=== PATIENT | female | born 1950 | race Caucasian/White ===

== ENCOUNTER → 2016-10-07 | Outpatient (CLI) | payer MEDICARE ==
[~2016-10-07] MED LIST: /ADVA50050; /IPRA3SP; /MOXI40TA; ACETGRA; ADV250INH INH; ALBU0.084 INH; ALBU83IN; ALBU83IN INH; ATEN25TA; ATEN25TA PO; ATIV0.5T OR; ATIV1TAB2; ATROVENT; ATROVENT0.02%; CALTTAB2 PO; CEFD1CAP8; CEFT500T3 PO; CELE40TA; CELE40TA PO; CITA40TA4 PO; CLON0.5T PO; COMBAER6 INH; COMBVENT; DIPH50CA PO; FLUT1SPR2; IPRASOL4 IN; KLON2TAB OR; KLON2TAB PO; LEVO500T32; LORA2TAB; MUCI600T34 PO; NICO7DIS4 TD; OMEP40CA2 PO; PRED10TA2; PRED20TA; PRED20TA PO; PRIL40CA; PRIL40CA PO; PROL60SO SC; SIMV10TA2; SIMV20TA2 PO; SIMV40TA2 PO; VIBR100C PO; VITA50003 PO; VITA500047 PO; ZITH250T; ZOCO10TA PO; [UNRECOGNIZED DRUG - CODE] PO; robitussin
--- NOTE | 2016-10-07 13:15 | REP ---
Clinical: Chronic obstructive pulmonary disease with acute weeks aspiration. Comparison: 05/30/2016. Technique: PA and lateral. Five views: Mediastinum and cardiac silhouette are stable again demonstrating scoliosis and postsurgical changes. The lung yanez demonstrate chronic changes without acute consolidation, effusion, or pneumothorax. Impression: Chronic stable changes. No acute cardiopulmonary process appreciated. Signed by Gaston Kapadia MD 10/07/2016 01:07 P
== END ==
LOC: M RAD 12:57
PROVIDERS: ATTEND Family Medicine
DX: J44.1 Chronic obstructive pulmonary disease with (acute) exacerbation (principal); R05 Cough
CPT/HCPCS: 36415; 71020; 85025; 96372; G0463; J1040

== ENCOUNTER → 2016-10-07 | Outpatient (REF) | payer MEDICARE ==
[~2016-10-07] MED LIST changes: -CEFD1CAP8; -LEVO500T32
[2016-10-07 16:50] LABS: BASO % 0.2 % (0.0-1.0); EOS % 0.2 % (0.0-3.0); LARGE UNSTAINED CELL # 0.1 K/mm3 (0.0-0.4); LARGE UNSTAINED CELL % 0.6 % (0.0-4.0); LYMPH # 0.7 K/mm3 (1.5-4.5); LYMPH % 5.8 % (24.0-44.0); MEAN CORPUSCULAR HEMOGLOBIN 28.5 pg (27.0-33.0); MEAN CORPUSCULAR HGB CONC 32.2 g/dl (32.0-36.5); MEAN CORPUSCULAR VOLUME 88.5 fl (80.0-96.0); MONO # 0.3 K/mm3 (0.0-0.8); MONO % 2.4 % (0.0-5.0); NEUTROPHILS # 10.9 K/mm3 (1.8-7.7); NEUTROPHILS % 90.7 % (36.0-66.0); PLATELET COUNT, AUTOMATED 246 k/mm3 (150-450); RED CELL DISTRIBUTION WIDTH 14.2 % (11.5-14.5)
== END ==
LOC: M SFHCPLAZ 16:02
PROVIDERS: ATTEND Nurse Practitioner Family
DX: J44.1 Chronic obstructive pulmonary disease with (acute) exacerbation (principal); R05 Cough

== ENCOUNTER → 2016-10-09 | Outpatient (CLI) | payer MEDICARE ==
--- NOTE | 2016-10-09 10:16 | REP ---
Clinical: Pain. Comparison: 05/06/2016. Technique: AP, lateral views of the right knee. Findings: The osseous structures and joint spaces are intact and normal. There is no evidence for acute fracture or dislocation. No definite effusion. Impression: Stable age appropriate right knee radiographs. Signed by Gaston Kapadia MD 10/09/2016 10:07 A
--- NOTE | 2016-10-11 07:43 | REP ---
Clinical: Acute pain . Technique: Hoffman scale and color Doppler evaluation using linear high frequency transducer. Findings: Ultrasound examination of the right lower extremity deep venous structures from the common femoral vein to the popliteal vein demonstrates normal compressibility flow and wave patterns in response to respiration and augmentation. There is no evidence for deep venous thrombosis. Mckenzie's cyst in the popliteal fossa measures 2.4 x 1.7 x 1.3 cm. Impression: No evidence for deep venous thrombosis. 2.4 cm Mckenzie's cyst in the popliteal fossa. Signed by Gaston Kapadia MD 10/09/2016 10:20 A
== END ==
LOC: M RAD 09:37
PROVIDERS: ATTEND Family Medicine
DX: M25.561 Pain in right knee (principal)

== ENCOUNTER → 2016-10-18 | Outpatient (REF) | payer MEDICARE ==
[~2016-10-18] MED LIST changes: +CEFD1CAP8; +LEVO500T32
[2016-10-18 17:36] LABS: BASO % 0.2 % (0.0-1.0); EOS # 0.3 K/mm3 (0.0-0.50); EOS % 1.8 % (0.0-3.0); LARGE UNSTAINED CELL # 0.2 K/mm3 (0.0-0.4); LARGE UNSTAINED CELL % 1.4 % (0.0-4.0); LYMPH # 2.9 K/mm3 (1.5-4.5); LYMPH % 19.4 % (24.0-44.0); MEAN CORPUSCULAR HEMOGLOBIN 28.2 pg (27.0-33.0); MEAN CORPUSCULAR HGB CONC 32.2 g/dl (32.0-36.5); MEAN CORPUSCULAR VOLUME 87.6 fl (80.0-96.0); MONO % 6.5 % (0.0-5.0); NEUTROPHILS # 10.7 K/mm3 (1.8-7.7); NEUTROPHILS % 70.7 % (36.0-66.0); PLATELET COUNT, AUTOMATED 239 k/mm3 (150-450); RED CELL DISTRIBUTION WIDTH 13.9 % (11.5-14.5); WHITE BLOOD COUNT 15.1 K/mm3 (4.0-10.0)
== END ==
LOC: M SFHCPLAZ 15:57
PROVIDERS: ATTEND Physician Assistant Medical
DX: J32.9 Chronic sinusitis, unspecified (principal)
CPT/HCPCS: 36415; 85025; G0463

== ENCOUNTER 2016-10-19 12:27 | Emergency (ER) | payer MEDICARE ==
[~2016-10-19] VITALS: Ht 152.4 cm; Wt 64.4 kg
[~2016-10-19 12:27] MED LIST changes: -CEFD1CAP8; -LEVO500T32
[2016-10-19] MEDS ORDERED: CEFD1CAP8 (13:04)
[2016-10-19] MEDS ORDERED: LEVO500T32 (13:04)
--- NOTE | 2016-10-19 15:33 | REP ---
CT study of the chest without contrast: History: Cough and chest pain. Comparison chest x-ray is from October 07, 2015. Comparison chest CT study is from June 09, 2016. CT findings: There is a moderate dextroconvex upper thoracic scoliotic curve again seen. There are emphysematous changes in the right upper lobe. The patient is status post left upper lobe resection. There are surgical clips in the left hilar region. Postsurgical changes are seen in the left lower lateral rib cage and there is subpleural and parenchymal linear fibrosis at the left base. There is no evidence of pulmonary mass lesion or infiltrate. No pleural effusion is seen. There is a stable intermediate density nodule in the left adrenal gland, unchanged from May 30 2016. This measures 1.9 cm. The visualized upper abdominal structures are otherwise unremarkable. No hilar or mediastinal adenopathy or mass lesion is observed. Impression: Status post left upper lobectomy. Scoliosis, right upper lobe emphysematous changes. No acute abnormality seen. Signed by Mario Moscoso MD 10/19/2016 04:45 P
[2016-10-19 15:52] VITALS: BP 116/61
== END 2016-10-19 15:54 | disposition home or self-care (01) ==
LOC: M ED 12:27
DX: J44.1 Chronic obstructive pulmonary disease with (acute) exacerbation (principal); K21.9 Gastro-esophageal reflux disease without esophagitis; Z85.118 Personal history of other malignant neoplasm of bronchus and lung; K44.9 Diaphragmatic hernia without obstruction or gangrene; Z88.1 Allergy status to other antibiotic agents; Z88.0 Allergy status to penicillin; Z88.2 Allergy status to sulfonamides; Z88.8 Allergy status to other drugs, medicaments and biological substances; Z79.899 Other long term (current) drug therapy

== ENCOUNTER → 2016-10-27 | Outpatient (CLI) | payer MEDICARE ==
[~2016-10-27] MED LIST changes: +CEFD1CAP8; +LEVO500T32
[2016-10-27 13:31] LABS: BASO % 0.4 % (0.0-1.0); EOS # 0.4 K/mm3 (0.0-0.50); EOS % 4.2 % (0.0-3.0); LARGE UNSTAINED CELL # 0.2 K/mm3 (0.0-0.4); LARGE UNSTAINED CELL % 1.7 % (0.0-4.0); LYMPH # 2.1 K/mm3 (1.5-4.5); LYMPH % 19.2 % (24.0-44.0); MEAN CORPUSCULAR HEMOGLOBIN 28.7 pg (27.0-33.0); MEAN CORPUSCULAR HGB CONC 32.1 g/dl (32.0-36.5); MEAN CORPUSCULAR VOLUME 89.5 fl (80.0-96.0); MONO # 0.5 K/mm3 (0.0-0.8); MONO % 5.5 % (0.0-5.0); NEUTROPHILS # 6.8 K/mm3 (1.8-7.7); NEUTROPHILS % 69.1 % (36.0-66.0); PLATELET COUNT, AUTOMATED 240 k/mm3 (150-450); RED CELL DISTRIBUTION WIDTH 13.6 % (11.5-14.5); WHITE BLOOD COUNT 9.9 K/mm3 (4.0-10.0)
[2016-10-27 14:02] LABS: ALBUMIN 3.3 GM/DL (3.2-5.2); ALKALINE PHOSPHATASE 59 U/L (45-117); ALT/SGPT 10 U/L (12-78); ANION GAP 8 MEQ/L (8-16); AST/SGOT 10 U/L (15-37); BILIRUBIN,TOTAL 0.3 MG/DL (0.2-1.0); BLOOD UREA NITROGEN 11 MG/DL (7-18); CALCIUM LEVEL 8.1 MG/DL (8.8-10.2); CARBON DIOXIDE LEVEL 28 MEQ/L (21-32); CHLORIDE LEVEL 107 MEQ/L (98-107); CREATININE FOR GFR 0.72 MG/DL (0.55-1.02); GLOMERULAR FILTRATION RATE > 60.0 (>45); GLUCOSE, FASTING 92 MG/DL (80-110); POTASSIUM SERUM 3.6 MEQ/L (3.5-5.1); SODIUM LEVEL 143 MEQ/L (136-145); TOTAL PROTEIN 6.3 GM/DL (6.4-8.2)
[2016-10-27 14:22] LABS: ERYTHROCYTE SEDIMENTATION RATE 57 mm/hr (0-30)
--- NOTE | 2016-10-27 15:42 | REP ---
MRI RIGHT KNEE: TECHNIQUE: Axial proton density fat saturation, sagittal proton density T2 STIR, water excitation, coronal proton density, proton density fat saturation. There is an extensive complex tear of the posterior horn of the medial meniscus. The lateral meniscus appears intact. The cruciate and collateral ligaments are intact. The extensor mechanism is intact. There is mild chondromalacia patella. There is moderate diffuse chondromalacia in the medial joint compartment with subchondral marrow edema in the medial femoral condyle and tibial plateau. There is a fairly large joint effusion. Popliteal cyst is seen superomedially in the popliteal fossa measuring about 3 cm in cranial caudal dimension and about 1.5 cm in thickness. IMPRESSION: Extensive complex tear posterior horn medial meniscus. Cruciate and collateral ligaments intact. Moderate chondromalacia in the medial joint compartment with subchondral marrow edema. Large joint effusion. Popliteal cyst. Signed by Yannick Hoffman MD 10/28/2016 04:38 P
== END ==
LOC: M RAD 13:00
PROVIDERS: ATTEND Family Medicine
DX: M25.561 Pain in right knee (principal); E78.2 Mixed hyperlipidemia

== ENCOUNTER 2016-12-17 08:47 | Outpatient (RCR) | payer MEDICARE | END 2016-12-19 | disposition home or self-care (01) | LOC: M PT 08:47 | PROVIDERS: ATTEND Family Medicine | DX: Z51.89 Encounter for other specified aftercare (principal); M25.641 Stiffness of right hand, not elsewhere classified; M25.561 Pain in right knee; M17.0 Bilateral primary osteoarthritis of knee | CPT/HCPCS: 97110; 97116; 97161; G8978; G8979 ==

== ENCOUNTER → 2016-12-31 | Outpatient (CLI) | payer MEDICARE ==
[~2016-12-31] MED LIST changes: +INCR1INH INH; +TRAZ50TA4 PO
--- NOTE | 2017-01-01 17:20 | ECGEPIP ---
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 Poor R-wave progression V1-V3, possible old anteroseptal myocardial infarct. MINIMAL ST DEPRESSION No significant change compared with 05/31/2016. Electronically Signed On 01-01-2017 17:19:53 EDT by Zafar Prescott
== END ==
LOC: M EKG 15:21
PROVIDERS: ATTEND Anesthesiology
DX: Z01.818 Encounter for other preprocedural examination (principal); R94.31 Abnormal electrocardiogram [ECG] [EKG]; J44.9 Chronic obstructive pulmonary disease, unspecified

== ENCOUNTER → 2017-01-03 | Day surgery (SDC) | payer MEDICARE ==
[~2017-01-03] VITALS: Ht 154.9 cm; Wt 59.9 kg
[~2017-01-03] MED LIST changes: +BUPIVACAINE HCL 0.5% 30 ML VIAL As Ordered ONE; +LIDOCAINE 2% INJ 100 MG/5 ML SDV (FOR ANES.) As Ordered ONE; +LR 1,000 ML IV ONE; +LR 1,000 ML IV SCH; +MIDAZOLAM INJ 2 MG/2 ML VIAL (J2250) As Ordered ONE; +NORCO, ANEXSIA 5/325MG TABLET (HYDROcodone/ACETAMINOPHEN) PO PRN; +PHENYLephrine HCL 500 MCG/5 ML (100MCG/ML) SYRINGE (J2370) As Ordered ONE; +PROPOFOL 200 MG/20 ML VIAL As Ordered ONE; +ROPIvacaine 0.5% 30 ML INJECTION (J2795) As Ordered ONE; +VANCOMYCIN HCL 1,000 MG, VIAL MATE ADAPTER 1 EACH in D5W 250 ML IV ONE; +fentaNYL 100 MCG/2 ML INJECTION (J3010) As Ordered ONE
--- NOTE | 2017-01-03 08:38 | RO ---
DATE OF PROCEDURE: 01/03/2017 PREOPERATIVE DIAGNOSIS: Right knee medial meniscus tear and arthritis. POSTOPERATIVE DIAGNOSIS: Right knee medial meniscus tear and arthritis. PROCEDURE: Right knee operative arthroscopy, partial medial meniscectomy and joint debridement. SURGEON: Javier Bower MD SENIOR FIREWALL ENGINEER: DEDRICK Schmidt ANESTHESIA: Spinal ESTIMATED BLOOD LOSS: Minimal. COMPLICATIONS: None. INDICATIONS: This is a 66-year-old woman who has had some persistent medial sided knee pain. MRI scan was consistent with meniscus pathology. She was having significant pain and failed conservative management and wished to ahead with surgical treatment. She understood the nature of the procedure, the risks of bleeding, infection, damage to nerves, vessels, persistent pain, blood clots, medical problems, among others. DESCRIPTION OF PROCEDURE: The patient was taken to the operating room and placed in a supine position after spinal anesthesia was induced. The right lower extremity was prepped and draped in usual sterile fashion. Time-out was performed. Tourniquet was inflated. I then created inferomedial, inferolateral portals per routine. I identified the patellofemoral joint, which was relatively unremarkable. Some grade 1 changes. There was a little bit of the thickened plica that was debrided. I could see down both gutters and identified the medial compartment. There was a large complex medial meniscus tear and it had a fairly peripheral component to it as well, but a big flap that was folded underneath, which was resected and I resected this back to a stable rim. It did involve a significant portion of the meniscus. The anterior horn was largely intact. There was a small portion of the posterior horn near the attachments still intact. I then reprobed the meniscus and made sure it was stable. Identified the anterior cruciate ligament (ACL), which was unremarkable. The lateral compartment demonstrated a small loose body that was scarred down at the anterior horn of the lateral meniscus. This was debrided out. The lateral meniscus otherwise intact with only mild arthritis on the lateral side. The medial side did have an area on the medial femoral condyle that was near full thickness defect, relatively small. I then proceeded back to the patellofemoral joint and reexamined the entire joint, removed the instrumentation, closed the portals using #4-0 nylon suture. Injected 30 mL of Naropin. A sterile dressing was applied. Tourniquet was deflated. She was taken to recovery room in stable condition. There were no known complications. Plan will be routine postoperative.
[2017-01-03 11:29] VITALS: BP 127/62
== END | disposition home or self-care (01) ==
LOC: M SDC 05:44
PROVIDERS: ATTEND Orthopaedic Surgery
DX: M23.221 Derangement of posterior horn of medial meniscus due to old tear or injury, right knee (principal); M17.11 Unilateral primary osteoarthritis, right knee; F41.9 Anxiety disorder, unspecified; F32.9 Major depressive disorder, single episode, unspecified; M54.9 Dorsalgia, unspecified; K44.9 Diaphragmatic hernia without obstruction or gangrene; C34.90 Malignant neoplasm of unspecified part of unspecified bronchus or lung; E78.00 Pure hypercholesterolemia, unspecified; K21.9 Gastro-esophageal reflux disease without esophagitis; L30.9 Dermatitis, unspecified; M81.0 Age-related osteoporosis without current pathological fracture; R06.02 Shortness of breath; J32.9 Chronic sinusitis, unspecified; R32 Unspecified urinary incontinence; Z88.0 Allergy status to penicillin; Z88.1 Allergy status to other antibiotic agents; Z88.2 Allergy status to sulfonamides; Z88.5 Allergy status to narcotic agent; Z88.8 Allergy status to other drugs, medicaments and biological substances; Z79.899 Other long term (current) drug therapy; Z72.0 Tobacco use
CPT/HCPCS: 29881; 88304; J2250; J2370; J2795; J3010; J3370

== ENCOUNTER 2017-01-14 11:10 | Outpatient (RCR) | payer MEDICARE ==
[~2017-01-14 11:10] MED LIST changes: -BUPIVACAINE HCL 0.5% 30 ML VIAL As Ordered ONE; -LIDOCAINE 2% INJ 100 MG/5 ML SDV (FOR ANES.) As Ordered ONE; -LR 1,000 ML IV ONE; -LR 1,000 ML IV SCH; -MIDAZOLAM INJ 2 MG/2 ML VIAL (J2250) As Ordered ONE; -NORCO, ANEXSIA 5/325MG TABLET (HYDROcodone/ACETAMINOPHEN) PO PRN; -PHENYLephrine HCL 500 MCG/5 ML (100MCG/ML) SYRINGE (J2370) As Ordered ONE; -PROPOFOL 200 MG/20 ML VIAL As Ordered ONE; -ROPIvacaine 0.5% 30 ML INJECTION (J2795) As Ordered ONE; -VANCOMYCIN HCL 1,000 MG, VIAL MATE ADAPTER 1 EACH in D5W 250 ML IV ONE; -fentaNYL 100 MCG/2 ML INJECTION (J3010) As Ordered ONE
== END 2017-01-19 ==
LOC: M PT 11:10
PROVIDERS: ATTEND Orthopaedic Surgery
DX: Z51.89 Encounter for other specified aftercare (principal); Z47.89 Encounter for other orthopedic aftercare
CPT/HCPCS: 97110; 97161; G8978; G8979

== ENCOUNTER → 2017-01-25 | Outpatient (REF) | payer MEDICARE | LOC: M SFHCPLAZ 14:08 | PROVIDERS: ATTEND Family Medicine | DX: N30.00 Acute cystitis without hematuria (principal) | CPT/HCPCS: 87088; 87186; G0463 ==

== ENCOUNTER 2017-01-27 11:45 | Outpatient (RCR) | payer MEDICARE ==
[~2017-01-27 11:45] MED LIST changes: +LEVO500T3; -LEVO500T32; +MUCI600T37 PO; +TRAZ50TA11 PO; -TRAZ50TA4 PO; +VITA1CAP40 PO; -VITA50003 PO
== END 2017-02-18 | disposition home or self-care (01) ==
LOC: M PT 11:45
PROVIDERS: ATTEND Orthopaedic Surgery
DX: Z51.89 Encounter for other specified aftercare (principal); M25.561 Pain in right knee

== ENCOUNTER → 2017-02-04 | Outpatient (REF) | payer MEDICARE, OTHER ==
[~2017-02-04] MED LIST changes: +HYDR-3713; +TESS100C PO
== END ==
LOC: M SFHCPLAZ 17:11
PROVIDERS: ATTEND Physician Assistant Medical
DX: L08.9 Local infection of the skin and subcutaneous tissue, unspecified (principal)
CPT/HCPCS: 87070; 87205; G0463

== ENCOUNTER → 2017-02-07 | Outpatient (CLI) | payer MEDICARE ==
[~2017-02-07] MED LIST changes: -HYDR-3713; -LEVO500T3; +LEVO500T32; -MUCI600T37 PO; -TESS100C PO; -TRAZ50TA11 PO; +TRAZ50TA4 PO; -VITA1CAP40 PO; +VITA50003 PO
--- NOTE | 2017-02-07 16:46 | REP ---
HISTORY: Pain and swelling right thigh. TECHNIQUE: Multiple ultrasonographic images of the deep venous structures of the right thigh were obtained from the common femoral vein to the popliteal vein along with Doppler interrogation and color flow Doppler images. FINDINGS: There is no abnormal echogenic material seen within any of the visualized deep venous structures that would suggest acute thrombosis. Coaptation is unremarkable throughout. Doppler interrogation shows an expected response to respiratory variability and augmentation. The color flow images show what appears to be a normal vascular pattern throughout. IMPRESSION: There is no ultrasonographic evidence of deep venous thrombosis involving any of the visualized deep venous structures of the right thigh, as described above. Signed by Skip Worley DO 02/07/2017 05:04 P
== END ==
LOC: M RAD 15:27
PROVIDERS: ATTEND Physician Assistant Surgical
DX: M25.561 Pain in right knee (principal); R22.41 Localized swelling, mass and lump, right lower limb

== ENCOUNTER → 2017-02-11 | Outpatient (CLI) | payer MEDICARE ==
--- NOTE | 2017-02-11 14:54 | REP ---
MRI RIGHT KNEE: TECHNIQUE: Axial proton density fat saturation, sagittal proton density T2 STIR, water excitation, coronal proton density, proton density fat saturation. COMPARISON: 10/27/2016 Since prior study, patient has had right knee arthroscopy with partial medial meniscectomy and joint debridement. The medial meniscus is quite truncated with a small remnant of the posterior horn of the medial meniscus visualized. Lateral meniscus remains intact with no new tear. The cruciate and collateral ligaments are again intact. The extensor mechanism is intact. Very mild chondromalacia is again seen of the patella. There is moderate to moderately severe chondromalacia of the medial femoral condyle and medial tibial plateau. Moderate subchondral marrow edema is seen in the medial femoral condyle, increased since prior study. In addition, there is a tiny subchondral low signal focus in the medial femoral condyle, which is hypointense on both T1 and T2 and may represent a small focus of early osteonecrosis. Very mild subchondral marrow edema is seen in the medial tibial plateau. There is a moderate joint effusion. A small amount of fluid extends into the medial popliteal fossa. IMPRESSION: Postsurgical changes of medial meniscus with a small remnant of the posterior horn. Lateral meniscus demonstrates no new tear. Cruciate and collateral ligaments intact. Moderate to moderately severe chondromalacia medial femoral condyle and tibial plateau. Increased marrow edema in the medial femoral condyle. Possible early osteonecrosis in a subchondral location in the medial femoral condyle. Moderate joint effusion. Signed by Yannick Hoffman MD 02/11/2017 03:30 P
== END ==
LOC: M RAD 12:51
PROVIDERS: ATTEND Physician Assistant Surgical
DX: M25.561 Pain in right knee (principal)

== ENCOUNTER → 2017-03-10 | Outpatient (CLI) | payer MEDICARE ==
[~2017-03-10] MED LIST changes: +HYDR-3713; +LEVO500T3; -LEVO500T32; +MUCI600T37 PO; +TESS100C PO; +TRAZ50TA11 PO; -TRAZ50TA4 PO; +VITA1CAP40 PO; -VITA50003 PO
--- NOTE | 2017-03-10 10:17 | REPMRS ---
Patient History The patient states she has not had a clinical breast exam in over a year. Patient is postmenopausal and has history of lung cancer at age 63. Family history of breast cancer in paternal aunt and breast cancer in paternal grandmother at age 50 or over. Digital Woman Screen Mammo: March 10, 2017 - Exam #: [id number] Bilateral CC and MLO view(s) were taken. Technologist: Laurence Manning Technologist Prior study comparison: March 08, 2016, digital woman screen mammo performed at [facility]. January 21, 2015, bilateral digital mammo screening bilat, performed at [facility]. December 20, 2013, digital woman screen mammo performed at [facility]. FINDINGS: There are scattered fibroglandular densities. A cutaneous mole projects in the upper outer quadrant on the right. There has been no other change in the appearance of the mammogram from the prior studies. There is a mild amount of scattered fibroglandular density which is fairly symmetric. There is no interval development of dominant mass, architectural distortion, or clustered microcalcification suggestive of malignancy. ASSESSMENT: BI-RADS/ACR category 2 mammogram. Benign finding(s). Recommendation Routine screening mammogram in 1 year (for women over age 40). This mammogram was interpreted with the aid of an FDA-approved computer-aided dectection system. Electronically Signed By: Lalo Moscoso MD 03/10/17 [id number]
== END ==
LOC: M WHC 09:21
PROVIDERS: ATTEND Family Medicine
DX: Z12.31 Encounter for screening mammogram for malignant neoplasm of breast (principal)

== ENCOUNTER → 2017-03-17 | Outpatient (CLI) | payer MEDICARE ==
[2017-03-17 06:50] LABS: BASO # 0.1 K/mm3 (0.0-0.2); BASO % 0.8 % (0.0-1.0); EOS # 0.4 K/mm3 (0.0-0.50); EOS % 4.5 % (0.0-3.0); LARGE UNSTAINED CELL # 0.2 K/mm3 (0.0-0.4); LARGE UNSTAINED CELL % 1.7 % (0.0-4.0); LYMPH # 3.1 K/mm3 (1.5-4.5); LYMPH % 34.8 % (24.0-44.0); MEAN CORPUSCULAR HEMOGLOBIN 29.2 pg (27.0-33.0); MEAN CORPUSCULAR HGB CONC 31.9 g/dl (32.0-36.5); MEAN CORPUSCULAR VOLUME 91.7 fl (80.0-96.0); MONO # 0.6 K/mm3 (0.0-0.8); MONO % 6.8 % (0.0-5.0); NEUTROPHILS # 4.4 K/mm3 (1.8-7.7); NEUTROPHILS % 51.4 % (36.0-66.0); PLATELET COUNT, AUTOMATED 220 k/mm3 (150-450); RED CELL DISTRIBUTION WIDTH 13.2 % (11.5-14.5); WHITE BLOOD COUNT 8.5 K/mm3 (4.0-10.0)
[2017-03-17 07:21] LABS: ALBUMIN 3.3 GM/DL (3.2-5.2); ALBUMIN/GLOBULIN RATIO 1.14 (1.00-1.93); ALKALINE PHOSPHATASE 73 U/L (45-117); ALT/SGPT 12 U/L (12-78); ANION GAP 8 MEQ/L (8-16); AST/SGOT 10 U/L (15-37); BILIRUBIN,TOTAL 0.2 MG/DL (0.2-1.0); BLOOD UREA NITROGEN 14 MG/DL (7-18); CALCIUM LEVEL 8.4 MG/DL (8.8-10.2); CARBON DIOXIDE LEVEL 28 MEQ/L (21-32); CHLORIDE LEVEL 102 MEQ/L (98-107); CREATININE FOR GFR 0.75 MG/DL (0.55-1.02); FERRITIN 27 NG/ML (8-252); GLOMERULAR FILTRATION RATE > 60.0 (>45); GLUCOSE, FASTING 100 MG/DL (80-110); PERCENT SATURATION 18.3 % (13.2-37.4); POTASSIUM SERUM 3.5 MEQ/L (3.5-5.1); SODIUM LEVEL 138 MEQ/L (136-145); TOTAL IRON BINDING CAPACITY 273 UG/DL (250-450); TOTAL PROTEIN 6.2 GM/DL (6.4-8.2)
[2017-03-17 11:55] LABS: VITAMIN B12 LEVEL 310 PG/ML (247-911)
== END ==
LOC: M LAB 06:02
PROVIDERS: ATTEND Family Medicine
DX: K21.9 Gastro-esophageal reflux disease without esophagitis (principal); E55.9 Vitamin D deficiency, unspecified; J44.9 Chronic obstructive pulmonary disease, unspecified; M81.0 Age-related osteoporosis without current pathological fracture

== ENCOUNTER 2017-05-20 11:38 | Emergency (ER) | payer MEDICARE, OTHER ==
[~2017-05-20] VITALS: Ht 154.9 cm; Wt 60.0 kg
[~2017-05-20 11:38] MED LIST changes: -HYDR-3713; -TESS100C PO
[2017-05-20] MEDS ORDERED: HYDR-3713 (11:56)
[2017-05-20] MEDS ORDERED: TESS100C PO (11:56)
[2017-05-20 12:21] LABS: BASO # 0.1 10^3/uL (0.0-0.2); BASO % 1.1 % (0.0-1.0); IMMATURE GRANULOCYTE % 0.1 % (0-0); LYMPH % 34.7 % (24.0-44.0); MEAN CORPUSCULAR HEMOGLOBIN 28.5 pg (27.0-33.0); MEAN CORPUSCULAR HGB CONC 32.3 g/dl (32.0-36.5); MEAN CORPUSCULAR VOLUME 88.2 fl (80.0-96.0); MONO # 0.6 10^3/uL (0.0-0.8); MONO % 7.3 % (0.0-5.0); NEUTROPHILS # 4.9 10^3/uL (1.8-7.7); NEUTROPHILS % 56.8 % (36.0-66.0); PLATELET COUNT, AUTOMATED 233 10^3/uL (150-450); RED CELL DISTRIBUTION WIDTH 14.2 % (11.5-14.5); WHITE BLOOD COUNT 8.6 10^3/uL (4.0-10.0)
[2017-05-20 12:49] LABS: ANION GAP 6 MEQ/L (8-16); BLOOD UREA NITROGEN 13 MG/DL (7-18); CALCIUM LEVEL 8.6 MG/DL (8.8-10.2); CARBON DIOXIDE LEVEL 26 MEQ/L (21-32); CHLORIDE LEVEL 107 MEQ/L (98-107); CREATININE FOR GFR 0.63 MG/DL (0.55-1.02); GLOMERULAR FILTRATION RATE > 60.0 (>45); GLUCOSE, FASTING 86 MG/DL (80-110); POTASSIUM SERUM 3.9 MEQ/L (3.5-5.1); SODIUM LEVEL 139 MEQ/L (136-145)
--- NOTE | 2017-05-20 14:33 | REP ---
CHEST, TWO VIEWS: COMPARISON: 10/07/2016 Chronic fibrotic changes are seen as well as postsurgical changes on the left. The findings are stable since the prior study of 10/07/2016 with no acute infiltrate. The heart is not enlarged. Multiple metallic clips are seen in the left hilar and mediastinal region. There is curvature of the thoracic spine convex to the right. There are mild degenerative changes of the spine. IMPRESSION: Chronic change. No evidence of acute infiltrate. Signed by Yannick Hoffman MD 05/20/2017 05:21 P
[2017-05-20] MEDS ORDERED: IPRATROPIUM 0.5MG/ALBUTEROL 2.5MG INH SOL UD 3ML (DUONEB)(J7620) NEB ONE (14:45)
[2017-05-20] MEDS ORDERED: IBUPROFEN 600 MG TAB PO ONE (14:45)
[2017-05-20] MEDS ORDERED: clonazePAM 1 MG TAB PO ONE (15:30)
[2017-05-20] MEDS ORDERED: clonazePAM 0.5 MG TAB PO ONE (15:30)
[2017-05-20] MEDS ORDERED: ISOVUE-370 76% 100ML VIAL (Q9967) As Ordered ONE (15:35)
[2017-05-20] MEDS ORDERED: predniSONE 20 MG TAB PO ONE (16:00)
--- NOTE | 2017-05-20 16:31 | REP ---
CT ANGIO CHEST: TECHNIQUE: Axial contrast enhanced images from the thoracic inlet to the upper abdomen using 100 mL Isovue 370 intravenous contrast material with multiplanar reformations. There is no CT evidence of a pulmonary embolism. There is no thoracic aortic aneurysm or dissection with mild to moderate atherosclerotic calcifications. There is no mediastinal or hilar adenopathy. The patient has had a prior left upper lobectomy. There is no pleural or pericardial effusion. The heart is not significantly enlarged. Chronic fibrotic changes are again seen bilaterally with postsurgical scarring on the left. There is a left adrenal adenoma unchanged. IMPRESSION: No CT evidence of pulmonary embolism. Signed by Yannick Hoffman MD 05/20/2017 05:23 P
[2017-05-20] MEDS ORDERED: PRED20TA PO (17:07)
[2017-05-20 17:17] VITALS: BP 131/92
--- NOTE | 2017-05-21 08:18 | ECGEPIP ---
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
== END 2017-05-20 17:25 | disposition home or self-care (01) ==
LOC: M ED 11:38
DX: J44.1 Chronic obstructive pulmonary disease with (acute) exacerbation (principal); I10 Essential (primary) hypertension; E78.4 Other hyperlipidemia; Z85.118 Personal history of other malignant neoplasm of bronchus and lung; Z72.0 Tobacco use
CPT/HCPCS: 36415; 71020; 71275; 80048; 82550; 82553; 84484; 85025; 85379; 93005; 93041; 94640; 94760; 99284; Q9967

== ENCOUNTER 2017-07-10 13:27 | Emergency (ER) | payer MEDICARE, OTHER ==
[~2017-07-10] VITALS: Ht 152.4 cm; Wt 60.5 kg
[~2017-07-10 13:27] MED LIST changes: +HYDR-3713; +TESS100C PO
[2017-07-10] MEDS ORDERED: CARA1TAB6 (13:47)
[2017-07-10] MEDS ORDERED: MUCI600T37 (13:47)
[2017-07-10] MEDS ORDERED: LEVO500T3 PO (13:47)
[2017-07-10 14:10] LABS: BASO % 0.1 % (0.0-1.0); IMMATURE GRANULOCYTE % 0.9 % (0-0); LYMPH # 1.3 10^3/uL (1.5-4.5); MEAN CORPUSCULAR HEMOGLOBIN 28.8 pg (27.0-33.0); MEAN CORPUSCULAR HGB CONC 33.5 g/dl (32.0-36.5); MONO # 0.6 10^3/uL (0.0-0.8); MONO % 4.1 % (0.0-5.0); NEUTROPHILS # 12.5 10^3/uL (1.8-7.7); NEUTROPHILS % 85.9 % (36.0-66.0); PLATELET COUNT, AUTOMATED 272 10^3/uL (150-450); RED CELL DISTRIBUTION WIDTH 14.6 % (11.5-14.5); WHITE BLOOD COUNT 14.6 10^3/uL (4.0-10.0)
[2017-07-10 14:27] LABS: ALBUMIN 3.6 GM/DL (3.2-5.2); ALBUMIN/GLOBULIN RATIO 1.06 (1.00-1.93); ALKALINE PHOSPHATASE 62 U/L (45-117); ALT/SGPT 17 U/L (12-78); ANION GAP 7 MEQ/L (8-16); AST/SGOT 7 U/L (7-37); BILIRUBIN,DIRECT < 0.1 MG/DL (0.0-0.2); BILIRUBIN,TOTAL 0.2 MG/DL (0.2-1.0); BLOOD UREA NITROGEN 16 MG/DL (7-18); CALCIUM LEVEL 8.6 MG/DL (8.8-10.2); CARBON DIOXIDE LEVEL 27 MEQ/L (21-32); CHLORIDE LEVEL 103 MEQ/L (98-107); CREATININE FOR GFR 1.01 MG/DL (0.55-1.02); GLUCOSE, FASTING 128 MG/DL (80-110); MAGNESIUM LEVEL 1.9 MG/DL (1.8-2.4); SODIUM LEVEL 137 MEQ/L (136-145)
[2017-07-10] MEDS ORDERED: IPRATROPIUM 0.5MG/ALBUTEROL 2.5MG INH SOL UD 3ML (DUONEB)(J7620) NEB ONE (14:30)
[2017-07-10] MEDS ORDERED: ACETAMINOPHEN TAB 650MG DOSE (2X325MG) PO ONE (14:30)
[2017-07-10 14:32] LABS: FREE T4 1.17 NG/DL (0.76-1.46)
--- NOTE | 2017-07-10 14:53 | REP ---
TWO VIEW CHEST: Two views of the chest are performed and compared to prior study of 05/20/2017. There is postsurgical scarring on the left with mild elevation of the left hemidiaphragm and mild left sided pleural thickening. Multiple metallic clips are seen in the left hilum. I see no evidence of acute infiltrate. Heart does not appear to be significantly enlarged. Mediastinal silhouette is grossly unchanged. There is curvature of the thoracic spine toward the right. There is osteopenia with mild degenerative changes of the spine. IMPRESSION: Postsurgical chronic findings without evidence of acute infiltrate. Signed by Yannick Hoffman MD 07/10/2017 05:39 P
[2017-07-10] MEDS ORDERED: ISOVUE-370 76% 100ML VIAL (Q9967) As Ordered ONE (15:05)
[2017-07-10] MEDS ORDERED: NS 250 ML IV ONE (15:15)
[2017-07-10 15:59] VITALS: O2SAT 92
[2017-07-10 16:18] VITALS: BP 136/71
--- NOTE | 2017-07-10 21:44 | ECGEPIP ---
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
--- NOTE | 2017-07-11 05:54 | REP ---
CT ANGIOGRAM OF THE CHEST: TECHNIQUE: Axial contrast enhanced images from the thoracic inlet to the upper abdomen using 100 mL Isovue 370 intravenous contrast material with multiplanar reformations. The patient has had prior left lung surgery. There are chronic fibrotic changes diffusely bilaterally which appear stable with no evidence of acute parenchymal infiltrate. There is no CT evidence of pulmonary embolism. There is no evidence of thoracic aortic aneurysm or dissection. Heart is not significantly enlarged. There is a tiny amount of chronic pericardial fluid/thickening which is stable. There is no mediastinal, hilar or chest wall lymphadenopathy. No pleural effusion is seen. The visualized upper abdominal structures appear unchanged with a left adrenal adenoma again noted. There are degenerative changes of the spine. IMPRESSION: Stable chronic findings. No CT evidence of pulmonary embolism or acute parenchymal infiltrate. Signed by Yannick Hoffman MD 07/11/2017 09:02 A
== END 2017-07-10 16:44 | disposition home or self-care (01) ==
LOC: M ED 13:27
DX: R00.2 Palpitations (principal); J44.9 Chronic obstructive pulmonary disease, unspecified; I10 Essential (primary) hypertension; Z72.0 Tobacco use; R06.02 Shortness of breath
CPT/HCPCS: 71020; 71275; 80048; 80076; 82550; 82553; 83735; 83880; 84100; 84439; 84443; 84484; 85025; 87040; 93005; 93041; 94640; 94760; 99285; Q9967

== ENCOUNTER 2017-07-27 07:38 | Day surgery (SDC) | payer MEDICARE ==
[~2017-07-27] VITALS: Ht 152.4 cm; Wt 61.0 kg
[~2017-07-27 07:38] MED LIST changes: +BSS with VANC/TOB/EPI for EYE CASES IR ONE; +CARA1TAB6 PO; +CYCLOPENTOLATE 2% OPHTH SOLN 2ML BTL OS ONE; +LEVO500T3 PO; +LIDOCAINE 3.5 % 1ML OPHTH TOPICAL GEL OU ONE; +PHENYLEPHRINE 2.5% OPHTH SOL 2ML OS ONE; +TROPICAMIDE 1% OPHTH SOLN 2ML OS ONE
[2017-07-27] MEDS ORDERED: TRIAMCINOLONE PRES FR 40 MG/ML 1ML(TRIESENCE)(OR EYE ONLY)(J3300 PER 1MG) As Ordered ONE (09:29)
[2017-07-27] MEDS ORDERED: HEALON DUET (HEALON 10MG/ML 0.55ML & HEALON ENDOCOAT 30MG/ML 0.85ML) As Ordered ONE (09:29)
[2017-07-27] MEDS ORDERED: LIDOCAINE 1% SDV 5 ML VIAL As Ordered ONE (09:29)
[2017-07-27] MEDS ORDERED: fentaNYL 100 MCG/2 ML INJECTION (J3010) As Ordered ONE (09:37)
[2017-07-27] MEDS ORDERED: MIDAZOLAM INJ 2 MG/2 ML VIAL (J2250) As Ordered ONE (09:37)
[2017-07-27] MEDS ORDERED: POVIDONE-IODINE 5% OPHTH PREP SOL 30ML As Ordered ONE (09:52)
[2017-07-27] MEDS ORDERED: CEFUROXIME 1MG/0.1ML INTRACAMERAL INJ As Ordered ONE (09:58)
[2017-07-27 10:35] VITALS: BP 141/63
== END 2017-07-27 10:50 | disposition home or self-care (01) ==
LOC: M SDC 07:38
PROVIDERS: ATTEND Ophthalmology
DX: H26.9 Unspecified cataract (principal); K44.9 Diaphragmatic hernia without obstruction or gangrene; K21.9 Gastro-esophageal reflux disease without esophagitis; M12.9 Arthropathy, unspecified; F41.9 Anxiety disorder, unspecified; F32.9 Major depressive disorder, single episode, unspecified; J44.9 Chronic obstructive pulmonary disease, unspecified; N39.3 Stress incontinence (female) (male); Z88.0 Allergy status to penicillin; Z88.1 Allergy status to other antibiotic agents; Z88.2 Allergy status to sulfonamides; Z88.5 Allergy status to narcotic agent; Z79.899 Other long term (current) drug therapy; Z87.39 Personal history of other diseases of the musculoskeletal system and connective tissue; Z90.710 Acquired absence of both cervix and uterus; Z72.0 Tobacco use
CPT/HCPCS: 66984; J2250; J3010; J3300; V2632

== ENCOUNTER 2017-08-03 07:41 | Day surgery (SDC) | payer MEDICARE ==
[~2017-08-03] VITALS: Ht 154.9 cm; Wt 59.8 kg
[~2017-08-03 07:41] MED LIST changes: +ACETAMINOPHEN 325 MG TAB PO PRN; +CYCLOPENTOLATE 2% OPHTH SOLN 2ML BTL OD ONE; -CYCLOPENTOLATE 2% OPHTH SOLN 2ML BTL OS ONE; +PHENYLEPHRINE 2.5% OPHTH SOL 2ML OD ONE; -PHENYLEPHRINE 2.5% OPHTH SOL 2ML OS ONE; +PHENYLEPHRINE HCL 10 % OPHTH. SOL 5ML OD PRN; +PROPARACAINE 0.5% OPHTH SOL 15ML OD PRN; +TROPICAMIDE 1% OPHTH SOLN 2ML OD ONE; -TROPICAMIDE 1% OPHTH SOLN 2ML OS ONE
[2017-08-03] MEDS ORDERED: fentaNYL 100 MCG/2 ML INJECTION (J3010) As Ordered ONE (07:44)
[2017-08-03] MEDS ORDERED: MIDAZOLAM INJ 2 MG/2 ML VIAL (J2250) As Ordered ONE (07:44)
[2017-08-03] MEDS ORDERED: TRIMETHOBENZAMIDE 300 MG CAP PO PRN (08:00)
[2017-08-03] MEDS ORDERED: LR 1,000 ML IV ONE (08:00)
[2017-08-03] MEDS ORDERED: BREO1INH INH (08:56)
[2017-08-03] MEDS ORDERED: TOBRAMYCIN 0.3% OPHTH SOLN 5 ML OD SCH (09:45)
[2017-08-03] MEDS ORDERED: LIDOCAINE 1% SDV 5 ML VIAL As Ordered ONE (10:04)
[2017-08-03] MEDS ORDERED: TRIAMCINOLONE PRES FR 40 MG/ML 1ML(TRIESENCE)(OR EYE ONLY)(J3300 PER 1MG) As Ordered ONE (10:04)
[2017-08-03] MEDS ORDERED: POVIDONE-IODINE 5% OPHTH PREP SOL 30ML As Ordered ONE (10:04)
[2017-08-03] MEDS ORDERED: HEALON DUET (HEALON 10MG/ML 0.55ML & HEALON ENDOCOAT 30MG/ML 0.85ML) As Ordered ONE (10:04)
[2017-08-03] MEDS ORDERED: CEFUROXIME 1MG/0.1ML INTRACAMERAL INJ As Ordered ONE (10:04)
[2017-08-03 10:55] VITALS: BP 111/52
== END 2017-08-03 11:04 | disposition home or self-care (01) ==
LOC: M SDC 07:41
PROVIDERS: ATTEND Ophthalmology
DX: H26.9 Unspecified cataract (principal); M10.9 Gout, unspecified; K44.9 Diaphragmatic hernia without obstruction or gangrene; K21.9 Gastro-esophageal reflux disease without esophagitis; M19.90 Unspecified osteoarthritis, unspecified site; F41.9 Anxiety disorder, unspecified; F32.9 Major depressive disorder, single episode, unspecified; J44.9 Chronic obstructive pulmonary disease, unspecified; N39.3 Stress incontinence (female) (male); F17.200 Nicotine dependence, unspecified, uncomplicated; Z88.0 Allergy status to penicillin; Z88.1 Allergy status to other antibiotic agents; Z88.2 Allergy status to sulfonamides; Z79.899 Other long term (current) drug therapy
CPT/HCPCS: 66984; J2250; J3010; J3300; V2632

== ENCOUNTER → 2017-09-12 | Outpatient (CLI) | payer MEDICARE, OTHER ==
[2017-09-12 07:26] LABS: BASO # 0.1 10^3/uL (0.0-0.2); BASO % 0.7 % (0.0-1.0); HEMATOCRIT 38.7 % (36.0-47.0); HEMOGLOBIN 12.5 g/dl (12.0-16.0); IMMATURE GRANULOCYTE % 0.4 % (0-0); LYMPH # 2.7 10^3/uL (1.5-4.5); LYMPH % 26.6 % (24.0-44.0); MEAN CORPUSCULAR HEMOGLOBIN 29.2 pg (27.0-33.0); MEAN CORPUSCULAR HGB CONC 32.3 g/dl (32.0-36.5); MEAN CORPUSCULAR VOLUME 90.4 fl (80.0-96.0); MONO # 0.8 10^3/uL (0.0-0.8); MONO % 7.6 % (0.0-5.0); NEUTROPHILS # 6.5 10^3/uL (1.8-7.7); NEUTROPHILS % 64.7 % (36.0-66.0); PLATELET COUNT, AUTOMATED 237 10^3/uL (150-450); RED BLOOD COUNT 4.28 10^6/uL (4.00-5.40); RED CELL DISTRIBUTION WIDTH 14.7 % (11.5-14.5); WHITE BLOOD COUNT 10.1 10^3/uL (4.0-10.0)
[2017-09-12 07:59] LABS: C REACTIVE PROTEIN QUANTITATIV 1.32 MG/DL (0.00-0.30); CHOLESTEROL LEVEL 150 MG/DL (<200); CPK CREATINE PHOSPHOKINASE 47 U/L (26-192); FREE T4 0.88 NG/DL (0.76-1.46); HDL CHOLESTEROL 50 MG/DL (>40); LDL CHOLESTEROL 83.2 MG/DL (<100); NON-HDL-C 100 MG/DL; TRIGLYCERIDES LEVEL 84 MG/DL (<150)
== END ==
LOC: M LAB 06:11
DX: E78.2 Mixed hyperlipidemia (principal)
CPT/HCPCS: 82550

== ENCOUNTER 2017-11-06 21:57 | Inpatient (IN) | payer MEDICARE, OTHER ==
[2017-11-06 22:38] LABS: BASO # 0.1 10^3/uL (0.0-0.2); BASO % 0.3 % (0.0-1.0); HEMATOCRIT 35.1 % (36.0-47.0); HEMOGLOBIN 11.7 g/dl (12.0-16.0); IMMATURE GRANULOCYTE % 0.5 % (0-3.0); LYMPH # 1.5 10^3/uL (1.5-4.5); LYMPH % 8.3 % (24.0-44.0); MEAN CORPUSCULAR HEMOGLOBIN 29.4 pg (27.0-33.0); MEAN CORPUSCULAR HGB CONC 33.3 g/dl (32.0-36.5); MEAN CORPUSCULAR VOLUME 88.2 fl (80.0-96.0); MONO # 1.2 10^3/uL (0.0-0.8); MONO % 6.3 % (0.0-5.0); NEUTROPHILS # 15.5 10^3/uL (1.8-7.7); NEUTROPHILS % 84.6 % (36.0-66.0); PLATELET COUNT, AUTOMATED 265 10^3/uL (150-450); RED BLOOD COUNT 3.98 10^6/uL (4.00-5.40); RED CELL DISTRIBUTION WIDTH 13.4 % (11.5-14.5); WHITE BLOOD COUNT 18.3 10^3/uL (4.0-10.0)
[2017-11-06] MEDS: ACETAMINOPHEN TAB 650MG DOSE (2X325MG) PO (22:47)
[2017-11-06 22:59] LABS: ANION GAP 9 MEQ/L (8-16); BLOOD UREA NITROGEN 15 MG/DL (7-18); CALCIUM LEVEL 8.8 MG/DL (8.8-10.2); CARBON DIOXIDE LEVEL 26 MEQ/L (21-32); CHLORIDE LEVEL 103 MEQ/L (98-107); CREATININE FOR GFR 0.73 MG/DL (0.55-1.30); GLOMERULAR FILTRATION RATE > 60.0 (>45); GLUCOSE, FASTING 104 MG/DL (70-100); POTASSIUM SERUM 3.5 MEQ/L (3.5-5.1); SODIUM LEVEL 138 MEQ/L (136-145)
[2017-11-06 23:02] LABS: LACTIC ACID SEPSIS PROTOCOL 1.7 MMOL/L (0.4-2.0)
[2017-11-06 23:17] LABS: INFLUENZA A AMPLIFICATION NEGATIVE (NEGATIVE); INFLUENZA B AMPLIFICATION NEGATIVE (NEGATIVE)
[2017-11-06] MEDS: LevoFLOXacin IV 750 MG in APPROPRIATE DILUENT 1 EA IV (23:32)
[2017-11-06] MEDS: IPRATROPIUM 0.5MG/ALBUTEROL 2.5MG INH SOL UD 3ML (DUONEB)(J7620) NEB (23:35)
[2017-11-06 23:37] LABS: ABG BASE EXCESS -0.7 (-2.0-2.0); ABG O2 SATURATION 97.3 % (95.0-99.0); ABG PARTIAL PRESSURE CO2 30.6 mmHg (35.0-45.0); ABG PARTIAL PRESSURE O2 89.4 mmHg (75.0-100.0); ABG STANDARD HCO3 23.9 MEQ/L (22.0-26.0); ABG pH (ARTERIAL) 7.475 UNITS (7.350-7.450)
[2017-11-07] MEDS ORDERED: IPRATROPIUM 0.5MG/ALBUTEROL 2.5MG INH SOL UD 3ML (DUONEB)(J7620) NEB (00:45)
[2017-11-07] MEDS ORDERED: NICOTINE 14 MG/24 HR TRANSDERMAL TD (00:45)
[2017-11-07 00:58] LABS: TROPONIN I < 0.02 NG/ML (< 0.10)
[2017-11-07 00:59] LABS: CPK CREATINE PHOSPHOKINASE 50 U/L (26-192)
[2017-11-07] MEDS: NS 1,000 ML IV ×3 (00:59→14:37)
[2017-11-07] MEDS: SUCRALFATE SUSP 1GM/10ML UD PO (01:52)
[2017-11-07] MEDS: clonazePAM 0.5 MG TAB PO ×2 (01:52→21:14)
[2017-11-07] MEDS: SIMVASTATIN 20 MG TAB PO ×2 (01:53→18:09)
[2017-11-07] MEDS: traZODone 25MG PER 1/2 TABLET PO ×2 (02:10→21:13)
[2017-11-07] MEDS: HEPARIN SOD (PORCINE) 5000 UNITS/ML VIAL SC ×3 (05:56→21:14)
[2017-11-07] MEDS: diphenhydrAMINE 25 MG CAP PO ×4 (05:57→16:48)
[2017-11-07 07:36] LABS: CPK CREATINE PHOSPHOKINASE 41 U/L (26-192); MB/CK RELATIVE INDEX 2.43 (< OR =4); TROPONIN I < 0.02 NG/ML (< 0.10)
[2017-11-07] MEDS: IPRATROPIUM 0.5MG/ALBUTEROL 2.5MG INH SOL UD 3ML (DUONEB)(J7620) NEB ×3 (07:50→19:39)
[2017-11-07 07:58] LABS: HEMATOCRIT 32.1 % (36.0-47.0); HEMOGLOBIN 10.7 g/dl (12.0-16.0); MEAN CORPUSCULAR HEMOGLOBIN 29.4 pg (27.0-33.0); MEAN CORPUSCULAR HGB CONC 33.3 g/dl (32.0-36.5); MEAN CORPUSCULAR VOLUME 88.2 fl (80.0-96.0); PLATELET COUNT, AUTOMATED 254 10^3/uL (150-450); RED BLOOD COUNT 3.64 10^6/uL (4.00-5.40); RED CELL DISTRIBUTION WIDTH 13.4 % (11.5-14.5); WHITE BLOOD COUNT 20.3 10^3/uL (4.0-10.0)
[2017-11-07 07:59] LABS: BLOOD UREA NITROGEN 10 MG/DL (7-18); GLUCOSE, FASTING 86 MG/DL (70-100)
[2017-11-07 08:00] LABS: ANION GAP 7 MEQ/L (8-16); CALCIUM LEVEL 7.7 MG/DL (8.8-10.2); CARBON DIOXIDE LEVEL 26 MEQ/L (21-32); CHLORIDE LEVEL 106 MEQ/L (98-107); CREATININE FOR GFR 0.65 MG/DL (0.55-1.30); GLOMERULAR FILTRATION RATE > 60.0 (>45); POTASSIUM SERUM 3.6 MEQ/L (3.5-5.1); SODIUM LEVEL 139 MEQ/L (136-145)
[2017-11-07] MEDS: CitaloPRAM (CeleXA) 20 MG TAB PO (09:27)
[2017-11-07] MEDS: FLUTICASONE PROP 0.05% NASAL SPRAY 16 GM (FLONASE) (09:28)
[2017-11-07] MEDS: CYANOCOBALAMIN 500 MCG TAB PO (09:28)
[2017-11-07] MEDS: OMEPRAZOLE 20 MG CAP PO (09:28)
[2017-11-07] MEDS: ACETAMINOPHEN TAB 650MG DOSE (2X325MG) PO (18:09)
[2017-11-08] MEDS: LevoFLOXacin IV 750 MG in APPROPRIATE DILUENT 1 EA IV (00:07)
[2017-11-08] MEDS: IPRATROPIUM 0.5MG/ALBUTEROL 2.5MG INH SOL UD 3ML (DUONEB)(J7620) NEB ×2 (01:39→07:13)
[2017-11-08] MEDS: diphenhydrAMINE 25 MG CAP PO ×2 (06:00)
[2017-11-08 06:03] LABS: HEMATOCRIT 30.2 % (36.0-47.0); HEMOGLOBIN 9.8 g/dl (12.0-16.0); MEAN CORPUSCULAR HEMOGLOBIN 29.4 pg (27.0-33.0); MEAN CORPUSCULAR HGB CONC 32.5 g/dl (32.0-36.5); MEAN CORPUSCULAR VOLUME 90.7 fl (80.0-96.0); PLATELET COUNT, AUTOMATED 242 10^3/uL (150-450); RED BLOOD COUNT 3.33 10^6/uL (4.00-5.40); RED CELL DISTRIBUTION WIDTH 13.6 % (11.5-14.5); WHITE BLOOD COUNT 11.2 10^3/uL (4.0-10.0)
[2017-11-08 06:20] LABS: ANION GAP 5 MEQ/L (8-16); BLOOD UREA NITROGEN 7 MG/DL (7-18); CALCIUM LEVEL 7.5 MG/DL (8.8-10.2); CARBON DIOXIDE LEVEL 27 MEQ/L (21-32); CHLORIDE LEVEL 115 MEQ/L (98-107); CREATININE FOR GFR 0.53 MG/DL (0.55-1.30); GLOMERULAR FILTRATION RATE > 60.0 (>45); GLUCOSE, FASTING 81 MG/DL (70-100); POTASSIUM SERUM 3.6 MEQ/L (3.5-5.1)
[2017-11-08 06:22] LABS: SODIUM LEVEL 147 MEQ/L (136-145)
[2017-11-08] MEDS: HEPARIN SOD (PORCINE) 5000 UNITS/ML VIAL SC (06:32)
[2017-11-08] MEDS: CYANOCOBALAMIN 500 MCG TAB PO (08:33)
[2017-11-08] MEDS: FLUTICASONE PROP 0.05% NASAL SPRAY 16 GM (FLONASE) (08:33)
[2017-11-08] MEDS: OMEPRAZOLE 20 MG CAP PO (08:33)
[2017-11-08] MEDS: CitaloPRAM (CeleXA) 20 MG TAB PO (08:33)
[2017-11-08] MEDS: BREO ELLIPTA INH (09:46)
[2017-11-10 00:06] LABS: BODY FLUID CULTURE Not Indicated (.); LEGIONELLA ANTIGEN URINE Negative (Negative); ORGANISM ID Not indicated. (.); SPECIMEN SOURCE Urine (.); URINE STREP PNEUMONIAE ANTIGEN Negative (Negative)
== END 2017-11-08 11:30 | disposition home or self-care (01) | DRG 192 ==
LOC: M ED INP 11-07 00:47 → M MSPAV 11-07 01:23 → M ED 21:57
DX: J44.1 Chronic obstructive pulmonary disease with (acute) exacerbation (principal); F17.210 Nicotine dependence, cigarettes, uncomplicated; K21.9 Gastro-esophageal reflux disease without esophagitis; F32.9 Major depressive disorder, single episode, unspecified; E78.5 Hyperlipidemia, unspecified; Z88.0 Allergy status to penicillin; Z88.2 Allergy status to sulfonamides; Z88.1 Allergy status to other antibiotic agents; Z88.5 Allergy status to narcotic agent; Z79.899 Other long term (current) drug therapy; Z90.2 Acquired absence of lung [part of]

== ENCOUNTER 2017-12-05 19:09 | Emergency (ER) | payer MEDICARE, OTHER ==
[2017-12-05] MEDS: ACETAMINOPHEN TAB 650MG DOSE (2X325MG) PO ×2 (20:43)
[2017-12-05] MEDS: LIDOCAINE W/EPINEPHRINE 1% 20ML VIAL SC ×2 (20:47)
[2017-12-05] MEDS: TETANUS/DIPHTHERIA TOX ADSORB ADULT 0.5ML SYR/VIAL (90714) IM ×2 (20:47)
== END 2017-12-05 21:20 | disposition home or self-care (01) ==
LOC: M ED 19:09
DX: S01.01XA Laceration without foreign body of scalp, initial encounter (principal); W01.10XA Fall on same level from slipping, tripping and stumbling with subsequent striking against unspecified object, initial encounter; Y92.410 Unspecified street and highway as the place of occurrence of the external cause; J44.9 Chronic obstructive pulmonary disease, unspecified; K21.9 Gastro-esophageal reflux disease without esophagitis; Z88.1 Allergy status to other antibiotic agents; Z88.5 Allergy status to narcotic agent; Z88.0 Allergy status to penicillin; Z88.2 Allergy status to sulfonamides; Z79.899 Other long term (current) drug therapy
CPT/HCPCS: 90714

== ENCOUNTER → 2018-02-03 | Outpatient (REF) | payer MEDICARE ==
[2018-02-03 19:25] LABS: APPEARANCE, URINE CLEAR (CLEAR); BACTERIA, URINE AUTO NEGATIVE (NEGATIVE); BILIRUBIN, URINE AUTO NEGATIVE (NEGATIVE); BLOOD, URINE BLOOD 2+ (NEGATIVE); COLOR, URINE YELLOW (YELLOW); GLUCOSE, URINE (UA) AUTO NEGATIVE (NEGATIVE); KETONE, URINE AUTO NEGATIVE (NEGATIVE); LEUKOCYTE ESTERASE, URINE AUTO 1+ (NEGATIVE); MUCUS, URINE SMALL (NEGATIVE); NITRITE, URINE AUTO NEGATIVE (NEGATIVE); PROTEIN, URINE AUTO NEGATIVE (NEGATIVE); RBC, URINE AUTO 8 /HPF (0-3); SPECIFIC GRAVITY URINE AUTO 1.011 (1.002-1.035); SQUAMOUS EPITHELIAL CELL UR AU 0 /HPF (0-6); UROBILINOGEN, URINE AUTO 0.2 mg/dL (0.0-2.0); WBC, URINE AUTO 6 /HPF (0-3)
== END ==
LOC: M SFHCPLAZ 13:39
DX: R31.0 Gross hematuria (principal)
CPT/HCPCS: 81001

== ENCOUNTER → 2018-03-01 | Outpatient (CLI) | payer MEDICARE | LOC: M WHC 07:55 | DX: Z12.31 Encounter for screening mammogram for malignant neoplasm of breast (principal); Z80.3 Family history of malignant neoplasm of breast | CPT/HCPCS: 77067 ==

== ENCOUNTER → 2018-04-10 | Outpatient (CLI) | payer MEDICARE ==
[2018-04-10 13:09] LABS: BASO # 0.1 10^3/uL (0.0-0.2); BASO % 0.6 % (0.0-1.0); HEMOGLOBIN 12.2 g/dl (12.0-15.5); IMMATURE GRANULOCYTE % 0.6 % (0-3.0); LYMPH % 14.3 % (24.0-44.0); MEAN CORPUSCULAR HEMOGLOBIN 28.6 pg (27.0-33.0); MEAN CORPUSCULAR VOLUME 86.7 fl (80.0-96.0); MONO # 0.7 10^3/uL (0.0-0.8); MONO % 4.7 % (0.0-5.0); NEUTROPHILS # 11.3 10^3/uL (1.8-7.7); NEUTROPHILS % 79.8 % (36.0-66.0); PLATELET COUNT, AUTOMATED 235 10^3/uL (150-450); RED BLOOD COUNT 4.27 10^6/uL (4.00-5.40); RED CELL DISTRIBUTION WIDTH 14.6 % (11.5-14.5); RETIC HEMOGLOBIN EQUIVALENT 32.1 pg (24-36); RETICULOCYTE # 76.4 10^9/L (17-77); RETICULOCYTE % 1.8 % (0.5-1.5); WHITE BLOOD COUNT 14.1 10^3/uL (4.0-10.0)
[2018-04-10 13:24] LABS: ALBUMIN 3.6 GM/DL (3.2-5.2); ALBUMIN/GLOBULIN RATIO 1.03 (1.00-1.93); ALKALINE PHOSPHATASE 83 U/L (45-117); ALT/SGPT 21 U/L (12-78); ANION GAP 7 MEQ/L (8-16); AST/SGOT 11 U/L (7-37); BILIRUBIN,TOTAL 0.1 MG/DL (0.2-1.0); BLOOD UREA NITROGEN 19 MG/DL (7-18); CALCIUM LEVEL 9.1 MG/DL (8.8-10.2); CARBON DIOXIDE LEVEL 31 MEQ/L (21-32); CHLORIDE LEVEL 101 MEQ/L (98-107); CREATININE FOR GFR 0.87 MG/DL (0.55-1.30); GLOMERULAR FILTRATION RATE > 60.0 (>45); GLUCOSE, FASTING 118 MG/DL (70-100); POTASSIUM SERUM 4.3 MEQ/L (3.5-5.1); SODIUM LEVEL 139 MEQ/L (136-145); TOTAL PROTEIN 7.1 GM/DL (6.4-8.2)
[2018-04-10 13:28] LABS: TOTAL 25(OH) VITAMIN D 56.2 NG/ML (30.0-100.0)
[2018-04-10 13:29] LABS: PTH INTACT 35.8 PG/ML (18.5-88.0); VITAMIN B12 LEVEL 877 PG/ML (247-911)
[2018-04-10 13:58] LABS: POS COUNT POS FLAG
== END ==
LOC: M LAB 11:49
DX: E53.8 Deficiency of other specified B group vitamins (principal); E55.9 Vitamin D deficiency, unspecified
CPT/HCPCS: 82607

== ENCOUNTER 2018-04-17 13:56 | Emergency (ER) | payer MEDICARE ==
[2018-04-17 14:24] LABS: KETONE, URINE AUTO RFX NEGATIVE (NEGATIVE); LEUKOCYTE ESTERASE UR AUTO RFX TRACE (NEGATIVE); MUCUS, URINE RFX SMALL (NEGATIVE); NITRITE, URINE AUTO RFX NEGATIVE (NEGATIVE); RBC, URINE AUTO RFX 10 /HPF (0-3); SPECIFIC GRAVITY UR AUTO RFX 1.013 (1.002-1.035); SQUAM EPITHELIAL CELL UR AURFX 1 /HPF (0-6); WBC, URINE AUTO RFX 2 /HPF (0-3)
[2018-04-17] MEDS: NS 500 ML IV (14:45)
[2018-04-17] MEDS: ONDANSETRON 4MG/2ML VIAL (J2405) IV (14:56)
[2018-04-17] MEDS: KETOROLAC 30 MG/ML VIAL (J1885) IV (14:56)
[2018-04-17] MEDS: MORPHINE 2 MG/ML 1ML SYRINGE (J2270) IV (14:57)
[2018-04-17 15:05] LABS: BASO # 0.1 10^3/uL (0.0-0.2); BASO % 0.6 % (0.0-1.0); HEMATOCRIT 35.5 % (36.0-47.0); HEMOGLOBIN 11.8 g/dl (12.0-15.5); IMMATURE GRANULOCYTE % 0.6 % (0-3.0); LYMPH # 2.5 10^3/uL (1.5-4.5); LYMPH % 20.2 % (24.0-44.0); MEAN CORPUSCULAR HGB CONC 33.2 g/dl (32.0-36.5); MEAN CORPUSCULAR VOLUME 87.2 fl (80.0-96.0); MONO % 7.8 % (0.0-5.0); NEUTROPHILS # 8.9 10^3/uL (1.8-7.7); NEUTROPHILS % 70.8 % (36.0-66.0); PLATELET COUNT, AUTOMATED 243 10^3/uL (150-450); RED BLOOD COUNT 4.07 10^6/uL (4.00-5.40); RED CELL DISTRIBUTION WIDTH 14.4 % (11.5-14.5); WHITE BLOOD COUNT 12.6 10^3/uL (4.0-10.0)
[2018-04-17 16:02] LABS: ALBUMIN 2.9 GM/DL (3.2-5.2); ALBUMIN/GLOBULIN RATIO 0.94 (1.00-1.93); ALKALINE PHOSPHATASE 71 U/L (45-117); ALT/SGPT 15 U/L (12-78); ANION GAP 7 MEQ/L (8-16); AST/SGOT 10 U/L (7-37); BILIRUBIN,DIRECT < 0.1 MG/DL (0.0-0.2); BILIRUBIN,TOTAL 0.2 MG/DL (0.2-1.0); BLOOD UREA NITROGEN 20 MG/DL (7-18); CALCIUM LEVEL 8.2 MG/DL (8.8-10.2); CARBON DIOXIDE LEVEL 27 MEQ/L (21-32); CHLORIDE LEVEL 106 MEQ/L (98-107); CREATININE FOR GFR 0.82 MG/DL (0.55-1.30); GLOMERULAR FILTRATION RATE > 60.0 (>45); GLUCOSE, FASTING 141 MG/DL (70-100); LIPASE 257 U/L (73-393); POTASSIUM SERUM 3.7 MEQ/L (3.5-5.1); SODIUM LEVEL 140 MEQ/L (136-145)
== END 2018-04-17 16:47 | disposition home or self-care (01) ==
LOC: M ED 13:56
DX: R31.9 Hematuria, unspecified (principal); N32.89 Other specified disorders of bladder; Z85.118 Personal history of other malignant neoplasm of bronchus and lung; K57.30 Diverticulosis of large intestine without perforation or abscess without bleeding; Z79.899 Other long term (current) drug therapy; Z88.0 Allergy status to penicillin; Z88.1 Allergy status to other antibiotic agents; Z88.2 Allergy status to sulfonamides; Z88.5 Allergy status to narcotic agent
CPT/HCPCS: J2405

== ENCOUNTER → 2018-04-20 | Outpatient (REF) | payer MEDICARE ==
[2018-04-20 13:39] LABS: APPEARANCE, URINE CLEAR (CLEAR); BACTERIA, URINE AUTO 1+ (NEGATIVE); BILIRUBIN, URINE AUTO NEGATIVE (NEGATIVE); BLOOD, URINE BLOOD 2+ (NEGATIVE); COLOR, URINE YELLOW (YELLOW); GLUCOSE, URINE (UA) AUTO NEGATIVE (NEGATIVE); KETONE, URINE AUTO NEGATIVE (NEGATIVE); LEUKOCYTE ESTERASE, URINE AUTO NEGATIVE (NEGATIVE); NITRITE, URINE AUTO NEGATIVE (NEGATIVE); PROTEIN, URINE AUTO NEGATIVE (NEGATIVE); RBC, URINE AUTO 4 /HPF (0-3); SPECIFIC GRAVITY URINE AUTO 1.008 (1.002-1.035); SQUAMOUS EPITHELIAL CELL UR AU 0 /HPF (0-6); UROBILINOGEN, URINE AUTO 0.2 mg/dL (0.0-2.0); WBC, URINE AUTO 0 /HPF (0-3)
== END ==
LOC: M SMT 12:46
DX: R31.29 Other microscopic hematuria (principal)
CPT/HCPCS: 81001

== ENCOUNTER → 2018-04-27 | Outpatient (CLI) | payer MEDICARE | LOC: M RAD 12:38 | DX: M41.86 Other forms of scoliosis, lumbar region (principal); M51.36 Other intervertebral disc degeneration, lumbar region; M51.34 Other intervertebral disc degeneration, thoracic region; G89.22 Chronic post-thoracotomy pain | CPT/HCPCS: 72072 ==

== ENCOUNTER → 2018-04-29 | Outpatient (CLI) | payer MEDICARE | LOC: M RAD 11:10 | DX: M51.36 Other intervertebral disc degeneration, lumbar region (principal) | CPT/HCPCS: 72148 ==

== ENCOUNTER 2018-05-08 08:51 | Outpatient (RCR) | payer MEDICARE | END 2018-05-21 | LOC: M PT 08:51 | DX: M51.36 Other intervertebral disc degeneration, lumbar region (principal) | CPT/HCPCS: 97110 ==

== ENCOUNTER 2018-06-07 08:48 | Outpatient (RCR) | payer MEDICARE | END 2018-06-21 | LOC: M PT 08:48 | DX: M51.36 Other intervertebral disc degeneration, lumbar region (principal) | CPT/HCPCS: 97110 ==

== ENCOUNTER → 2018-07-20 | Outpatient (CLI) | payer MEDICARE ==
[2018-07-20 06:47] LABS: BASO # 0.1 10^3/uL (0.0-0.2); BASO % 0.7 % (0.0-1.0); HEMATOCRIT 38.7 % (36.0-47.0); HEMOGLOBIN 12.5 g/dl (12.0-15.5); IMMATURE GRANULOCYTE % 0.4 % (0-3.0); LYMPH # 2.3 10^3/uL (1.5-4.5); LYMPH % 27.4 % (24.0-44.0); MEAN CORPUSCULAR HEMOGLOBIN 28.7 pg (27.0-33.0); MEAN CORPUSCULAR HGB CONC 32.3 g/dl (32.0-36.5); MEAN CORPUSCULAR VOLUME 88.8 fl (80.0-96.0); MONO # 0.7 10^3/uL (0.0-0.8); MONO % 8.7 % (0.0-5.0); NEUTROPHILS # 5.2 10^3/uL (1.8-7.7); NEUTROPHILS % 62.8 % (36.0-66.0); PLATELET COUNT, AUTOMATED 224 10^3/uL (150-450); RED BLOOD COUNT 4.36 10^6/uL (4.00-5.40); RED CELL DISTRIBUTION WIDTH 14.4 % (11.5-14.5); WHITE BLOOD COUNT 8.2 10^3/uL (4.0-10.0)
[2018-07-20 07:30] LABS: ALBUMIN 3.6 GM/DL (3.2-5.2); ALBUMIN/GLOBULIN RATIO 1.13 (1.00-1.93); ALKALINE PHOSPHATASE 113 U/L (45-117); ALT/SGPT 15 U/L (12-78); ANION GAP 7 MEQ/L (8-16); AST/SGOT 12 U/L (7-37); BILIRUBIN,TOTAL 0.3 MG/DL (0.2-1.0); BLOOD UREA NITROGEN 17 MG/DL (7-18); C REACTIVE PROTEIN QUANTITATIV 1.96 MG/DL (0.00-0.30); CALCIUM LEVEL 9.2 MG/DL (8.8-10.2); CARBON DIOXIDE LEVEL 29 MEQ/L (21-32); CHLORIDE LEVEL 104 MEQ/L (98-107); CHOLESTEROL LEVEL 187 MG/DL (<200); CPK CREATINE PHOSPHOKINASE 51 U/L (26-192); CREATININE FOR GFR 0.79 MG/DL (0.55-1.30); GLOMERULAR FILTRATION RATE > 60.0 (>45); GLUCOSE, FASTING 83 MG/DL (70-100); HDL CHOLESTEROL 55 MG/DL (>40); LDL CHOLESTEROL 114 MG/DL (<100); NON-HDL-C 132 MG/DL; POTASSIUM SERUM 4.1 MEQ/L (3.5-5.1); SODIUM LEVEL 140 MEQ/L (136-145); TOTAL PROTEIN 6.8 GM/DL (6.4-8.2); TRIGLYCERIDES LEVEL 89 MG/DL (<150)
== END ==
LOC: M LAB 06:02
DX: E78.2 Mixed hyperlipidemia (principal); E53.8 Deficiency of other specified B group vitamins
CPT/HCPCS: 82550

== ENCOUNTER 2018-07-25 19:43 | Inpatient (IN) | payer MEDICARE ==
[2018-07-25] MEDS: dexameTHASONE 20 MG/5 ML VIAL (J1100) IV (20:40)
[2018-07-25] MEDS: LEVALBUTEROL 1.25 MG/0.5 ML CONCENTRATE NEB NEB (20:40)
[2018-07-25 20:59] LABS: BASO % 0.2 % (0.0-1.0); HEMATOCRIT 38.2 % (36.0-47.0); HEMOGLOBIN 12.6 g/dl (12.0-15.5); IMMATURE GRANULOCYTE % 0.5 % (0-3.0); LYMPH # 1.1 10^3/uL (1.5-4.5); LYMPH % 5.4 % (24.0-44.0); MEAN CORPUSCULAR HEMOGLOBIN 28.8 pg (27.0-33.0); MEAN CORPUSCULAR VOLUME 87.2 fl (80.0-96.0); MONO # 1.1 10^3/uL (0.0-0.8); MONO % 5.5 % (0.0-5.0); NEUTROPHILS # 18.5 10^3/uL (1.8-7.7); NEUTROPHILS % 88.4 % (36.0-66.0); PLATELET COUNT, AUTOMATED 232 10^3/uL (150-450); RED BLOOD COUNT 4.38 10^6/uL (4.00-5.40); RED CELL DISTRIBUTION WIDTH 14.2 % (11.5-14.5); VENOUS BASE EXCESS 1.3 (-2.0-2.0); VENOUS HCO3 26.6 MEQ/L (23.0-27.0); VENOUS O2 SATURATION 68.2 % (60.0-80.0); VENOUS PARTIAL PRESSURE CO2 44.7 mmHg (38.0-50.0); VENOUS PARTIAL PRESSURE O2 33.8 mmHg (30.0-50.0); VENOUS PH 7.393 UNITS (7.330-7.430); WHITE BLOOD COUNT 20.9 10^3/uL (4.0-10.0)
[2018-07-25 21:32] LABS: ALBUMIN 3.7 GM/DL (3.2-5.2); ALBUMIN/GLOBULIN RATIO 1.12 (1.00-1.93); ALKALINE PHOSPHATASE 124 U/L (45-117); ALT/SGPT 15 U/L (12-78); ANION GAP 8 MEQ/L (8-16); AST/SGOT 10 U/L (7-37); BILIRUBIN,DIRECT < 0.1 MG/DL (0.0-0.2); BILIRUBIN,TOTAL 0.2 MG/DL (0.2-1.0); BLOOD UREA NITROGEN 14 MG/DL (7-18); CALCIUM LEVEL 8.7 MG/DL (8.8-10.2); CARBON DIOXIDE LEVEL 25 MEQ/L (21-32); CHLORIDE LEVEL 107 MEQ/L (98-107); CPK CREATINE PHOSPHOKINASE 83 U/L (26-192); CREATININE FOR GFR 0.86 MG/DL (0.55-1.30); GLOMERULAR FILTRATION RATE > 60.0 (>45); GLUCOSE, FASTING 104 MG/DL (70-100); MB/CK RELATIVE INDEX 1.33 (< OR =4); NT-PRO BNP 284 PG/ML (<125); POTASSIUM SERUM 4.2 MEQ/L (3.5-5.1); SODIUM LEVEL 140 MEQ/L (136-145); THYROID STIMULATING HORMONE 0.996 uIU/ML (0.358-3.740); TROPONIN I < 0.02 NG/ML (< 0.10)
[2018-07-25] MEDS: ACETAMINOPHEN TAB 650MG DOSE (2X325MG) PO (22:00)
[2018-07-25] MEDS ORDERED: ISOVUE-370 76% 100ML VIAL (Q9967) As Ordered (22:13)
[2018-07-26 00:10] LABS: LACTIC ACID SEPSIS PROTOCOL 1.6 MMOL/L (0.4-2.0)
[2018-07-26] MEDS ORDERED: SUCRALFATE SUSP 1GM/10ML UD PO (00:15)
[2018-07-26] MEDS ORDERED: ACETAMINOPHEN TAB 650MG DOSE (2X325MG) PO (00:15)
[2018-07-26] MEDS: BUDESONIDE 0.5 MG/2 ML INHALATION SUSPENSION INH ×3 (00:27→20:00)
[2018-07-26] MEDS: NICOTINE 7 MG/24 HR TRANSDERMAL TD (00:27)
[2018-07-26] MEDS: clonazePAM 1 MG TAB PO ×2 (00:28→21:02)
[2018-07-26] MEDS: LevoFLOXacin IV 500 MG in APPROPRIATE DILUENT 1 EA IV (01:14)
[2018-07-26] MEDS: traZODone 25MG PER 1/2 TABLET PO ×3 (01:14→22:24)
[2018-07-26] MEDS: IPRATROPIUM 0.5MG/ALBUTEROL 2.5MG INH SOL UD 3ML (DUONEB)(J7620) NEB ×4 (01:57→21:10)
[2018-07-26] MEDS: methylPREDNISolone INJ 40 MG/1 ML VIAL (J2920) IV ×3 (06:20→21:02)
[2018-07-26] MEDS: CitaloPRAM (CeleXA) 20 MG TAB PO (08:27)
[2018-07-26] MEDS: CYANOCOBALAMIN 500 MCG TAB PO (08:27)
[2018-07-26] MEDS: OMEPRAZOLE 20 MG CAP PO (08:27)
[2018-07-26] MEDS: ENOXAPARIN 40 MG/0.4 ML SYRINGE (J1650) SC (08:28)
[2018-07-26] MEDS: FLUTICASONE PROP 0.05% NASAL SPRAY 16 GM (FLONASE) (09:00)
[2018-07-26 15:30] LABS: PROCALCITONIN 0.12 NG/ML (<0.10)
[2018-07-26] MEDS: SIMVASTATIN 20 MG TAB PO (17:33)
[2018-07-27] MEDS: IPRATROPIUM 0.5MG/ALBUTEROL 2.5MG INH SOL UD 3ML (DUONEB)(J7620) NEB ×2 (01:43→08:00)
[2018-07-27] MEDS: methylPREDNISolone INJ 40 MG/1 ML VIAL (J2920) IV (05:03)
[2018-07-27] MEDS: LevoFLOXacin 750 MG TABLET PO (05:03)
[2018-07-27 06:52] LABS: HEMATOCRIT 33.4 % (36.0-47.0); HEMOGLOBIN 11.3 g/dl (12.0-15.5); MEAN CORPUSCULAR HEMOGLOBIN 28.5 pg (27.0-33.0); MEAN CORPUSCULAR HGB CONC 33.8 g/dl (32.0-36.5); MEAN CORPUSCULAR VOLUME 84.3 fl (80.0-96.0); PLATELET COUNT, AUTOMATED 223 10^3/uL (150-450); RED BLOOD COUNT 3.96 10^6/uL (4.00-5.40); RED CELL DISTRIBUTION WIDTH 14.4 % (11.5-14.5); WHITE BLOOD COUNT 22.2 10^3/uL (4.0-10.0)
[2018-07-27 07:07] LABS: ANION GAP 9 MEQ/L (8-16); BLOOD UREA NITROGEN 16 MG/DL (7-18); CALCIUM LEVEL 8.5 MG/DL (8.8-10.2); CARBON DIOXIDE LEVEL 26 MEQ/L (21-32); CHLORIDE LEVEL 104 MEQ/L (98-107); CREATININE FOR GFR 0.91 MG/DL (0.55-1.30); GLOMERULAR FILTRATION RATE > 60.0 (>45); GLUCOSE, FASTING 200 MG/DL (70-100); POTASSIUM SERUM 3.8 MEQ/L (3.5-5.1); SODIUM LEVEL 139 MEQ/L (136-145)
[2018-07-27] MEDS: BUDESONIDE 0.5 MG/2 ML INHALATION SUSPENSION INH (08:00)
[2018-07-27] MEDS: CitaloPRAM (CeleXA) 20 MG TAB PO (08:17)
[2018-07-27] MEDS: CYANOCOBALAMIN 500 MCG TAB PO (08:17)
[2018-07-27] MEDS: OMEPRAZOLE 20 MG CAP PO (08:17)
[2018-07-27] MEDS: FLUTICASONE PROP 0.05% NASAL SPRAY 16 GM (FLONASE) (08:18)
[2018-07-27] MEDS: ENOXAPARIN 40 MG/0.4 ML SYRINGE (J1650) SC (08:18)
[2018-07-28] MEDS ORDERED: predniSONE 20 MG TAB PO (09:00)
[2018-07-28 14:15] LABS: LEGIONELLA ANTIGEN URINE Negative (Negative)
== END 2018-07-27 13:55 | disposition home or self-care (01) | DRG 192 ==
LOC: M ED INP 07-26 00:05 → M MS4PR 07-26 06:35 → M ED 19:43
DX: J43.2 Centrilobular emphysema (principal); F17.210 Nicotine dependence, cigarettes, uncomplicated; K21.9 Gastro-esophageal reflux disease without esophagitis; Z99.81 Dependence on supplemental oxygen; Z85.118 Personal history of other malignant neoplasm of bronchus and lung; Z90.2 Acquired absence of lung [part of]; Z79.899 Other long term (current) drug therapy; Z88.0 Allergy status to penicillin; Z88.1 Allergy status to other antibiotic agents; Z88.2 Allergy status to sulfonamides; Z88.6 Allergy status to analgesic agent; Z79.51 Long term (current) use of inhaled steroids

== ENCOUNTER → 2018-11-09 | Outpatient (CLI) | payer MEDICARE ==
[~2018-11-09] MED LIST changes: -ACETAMINOPHEN 325 MG TAB PO PRN; +BREO1INH INH; +BREO1INH3 INH; -BSS with VANC/TOB/EPI for EYE CASES IR ONE; +CALC500C2 PO; +CALCCHW18 PO; -CLON0.5T PO; +CLON0.5T8 PO; -CYCLOPENTOLATE 2% OPHTH SOLN 2ML BTL OD ONE; +DIPH25CA PO; +FLON1SPR; +FLUTISP; +IPRA0.00 INH; -IPRASOL4 IN; +KLON0.5T; +LEVA750T7 PO; -LIDOCAINE 3.5 % 1ML OPHTH TOPICAL GEL OU ONE; +NORCOTAB PO; -PHENYLEPHRINE 2.5% OPHTH SOL 2ML OD ONE; -PHENYLEPHRINE HCL 10 % OPHTH. SOL 5ML OD PRN; +PRED10TA2 PO; -PROPARACAINE 0.5% OPHTH SOL 15ML OD PRN; +SUCR1SS PO; +TRAZ-160 PO; -TRAZ50TA11 PO; -TROPICAMIDE 1% OPHTH SOLN 2ML OD ONE; +TYLE325C PO; +VITA10002 PO; -VITA1CAP40 PO; +VITA50005 PO; +VITA500T3 PO
[2018-11-09 10:22] LABS: BASO # 0.1 10^3/uL (0.0-0.2); BASO % 0.7 % (0.0-1.0); HEMATOCRIT 37.7 % (36.0-47.0); HEMOGLOBIN 12.2 g/dl (12.0-15.5); LYMPH # 2.2 10^3/uL (1.5-4.5); LYMPH % 24.7 % (24.0-44.0); MEAN CORPUSCULAR HEMOGLOBIN 28.7 pg (27.0-33.0); MEAN CORPUSCULAR HGB CONC 32.4 g/dl (32.0-36.5); MEAN CORPUSCULAR VOLUME 88.7 fl (80.0-96.0); MONO # 0.7 10^3/uL (0.0-0.8); MONO % 7.6 % (0.0-5.0); NEUTROPHILS % 66.9 % (36.0-66.0); PLATELET COUNT, AUTOMATED 221 10^3/uL (150-450); RED BLOOD COUNT 4.25 10^6/uL (4.00-5.40); WHITE BLOOD COUNT 8.9 10^3/uL (4.0-10.0)
[2018-11-09 10:40] LABS: ALBUMIN 3.6 GM/DL (3.2-5.2); ALT/SGPT 14 U/L (12-78); BILIRUBIN,TOTAL 0.3 MG/DL (0.2-1.0); BLOOD UREA NITROGEN 11 MG/DL (7-18); CALCIUM LEVEL 8.6 MG/DL (8.8-10.2); CARBON DIOXIDE LEVEL 28 MEQ/L (21-32); CHLORIDE LEVEL 107 MEQ/L (98-107); CREATININE FOR GFR 0.72 MG/DL (0.55-1.30); GLOMERULAR FILTRATION RATE > 60.0 (>45); GLUCOSE, FASTING 110 MG/DL (70-100); SODIUM LEVEL 141 MEQ/L (136-145); TOTAL PROTEIN 6.4 GM/DL (6.4-8.2)
[2018-11-09 10:49] LABS: TOTAL 25(OH) VITAMIN D 72.8 NG/ML (30.0-100.0)
[2018-11-09 10:50] LABS: PTH INTACT 69.6 PG/ML (18.5-88.0)
== END ==
LOC: M LAB 09:41
PROVIDERS: ATTEND Family Medicine
DX: E55.9 Vitamin D deficiency, unspecified (principal)

== ENCOUNTER → 2018-12-25 | Outpatient (CLI) | payer MEDICARE ==
[~2018-12-25] MED LIST changes: -/ADVA50050; -/IPRA3SP; -/MOXI40TA; +ADVA1AER2; +ATRO1SOL13; +AVEL1TAB2; +HYDR-3715 PO; -NORCOTAB PO
--- NOTE | 2018-12-25 14:35 | REP ---
REASON: History of arthritis. COMPARISON: 02/11/2017 The anterior and posterior horns of the lateral meniscus are unchanged. The anterior and posterior horns of the medial meniscus are unchanged. There is no new truncation or abnormal signal. The anterior and posterior cruciate ligaments are intact and unchanged. The quadriceps and patellar tendons are intact and unchanged. The medial and lateral collateral ligaments are intact and unchanged. Medial and lateral patellar retinacula are intact and unchanged. In the medial femoral condyle in the subchondral location, there is a 6 x 3 x 16 mm sized osteochondral defect which has increased in size from the prior examination, however, the degree of diffuse T2-hypersignal seen in the medial femoral condyle has overall decreased from the prior exam. The amount of joint fluid is unchanged from the prior exam, and the tiny Mckenzie cyst seen on the prior exam is also unchanged. There is a patchy marrow signal pattern of both red and white marrow, which is probably better imaged today using 3T technique compared to the prior 1.5 technique. There is tricompartmental cartilaginous thinning and irregularity, particularly affecting the medial and lateral compartments, medial compartment to a greater degree than the lateral. This is seen in conjunction with minimal tricompartmental marginal osteophytosis and medial compartmental narrowing, the degree of which may have increased from the prior exam. IMPRESSION: 1. There is no evidence of acute internal derangement. There are chronic changes seen involving the medial meniscus, which appears stable. 2. There is a medial femoral condylar osteochondral lesion, as described above. 3. Other findings as described above. Electronically Signed by Skip Worley DO 12/25/2018 04:37 P
== END ==
LOC: M RAD 09:15
PROVIDERS: ATTEND Orthopaedic Surgery
DX: M17.11 Unilateral primary osteoarthritis, right knee (principal); M71.21 Synovial cyst of popliteal space [Baker], right knee

== ENCOUNTER → 2019-01-09 | Outpatient (CLI) | payer MEDICARE ==
[~2019-01-09] MED LIST changes: +FLAG500T PO; +LEVO750T13 PO; +MAGN296S16 PO; +MIRA3350 PO; +PANT40TA3 PO; +SYMB16INH; -TRAZ-160 PO; +TRAZ-252 PO
--- NOTE | 2019-01-09 10:53 | REP ---
Abdomen flat upright PA chest three views History: GERD A small amount of air is present in the intestine. There are no air-fluid levels or dilated loops of intestine. There is no pneumoperitoneum. There is loss of volume in the left hemithorax. The lungs are clear. There is blunting of the left costophrenic angle due to pleural thickening. Surgical clips are present in the left hilum. There are old left rib fractures. There is scoliosis of the thoracic spine convex to the right. Impression: Nonspecific bowel gas pattern. Electronically Signed by Steve Foreman MD 01/09/2019 10:44 A
[2019-01-09 11:12] LABS: BASO # 0.1 10^3/uL (0.0-0.2); BASO % 0.7 % (0.0-1.0); HEMATOCRIT 39.1 % (36.0-47.0); HEMOGLOBIN 12.5 g/dl (12.0-15.5); LYMPH # 2.2 10^3/uL (1.5-4.5); LYMPH % 27.8 % (24.0-44.0); MEAN CORPUSCULAR HEMOGLOBIN 29.1 pg (27.0-33.0); MEAN CORPUSCULAR VOLUME 90.9 fl (80.0-96.0); MONO # 0.7 10^3/uL (0.0-0.8); MONO % 8.2 % (0.0-5.0); NEUTROPHILS # 5.1 10^3/uL (1.8-7.7); NEUTROPHILS % 63.1 % (36.0-66.0); PLATELET COUNT, AUTOMATED 249 10^3/uL (150-450); WHITE BLOOD COUNT 8.1 10^3/uL (4.0-10.0)
[2019-01-09 11:48] LABS: ALBUMIN 3.5 GM/DL (3.2-5.2); ALT/SGPT 11 U/L (12-78); BILIRUBIN,TOTAL 0.2 MG/DL (0.2-1.0); BLOOD UREA NITROGEN 12 MG/DL (7-18); C REACTIVE PROTEIN QUANTITATIV 1.36 MG/DL (0.00-0.30); CALCIUM LEVEL 8.9 MG/DL (8.8-10.2); CARBON DIOXIDE LEVEL 29 MEQ/L (21-32); CHLORIDE LEVEL 105 MEQ/L (98-107); CREATININE FOR GFR 0.79 MG/DL (0.55-1.30); GLOMERULAR FILTRATION RATE > 60.0 (>45); GLUCOSE, FASTING 84 MG/DL (70-100); LIPASE 149 U/L (73-393); POTASSIUM SERUM 4.2 MEQ/L (3.5-5.1); SODIUM LEVEL 141 MEQ/L (136-145); TOTAL PROTEIN 6.3 GM/DL (6.4-8.2)
== END ==
LOC: M LAB 10:00
PROVIDERS: ATTEND Family Medicine
DX: M41.84 Other forms of scoliosis, thoracic region (principal); R10.13 Epigastric pain; K21.9 Gastro-esophageal reflux disease without esophagitis
CPT/HCPCS: 36415; 74021; 80053; 83690; 85025; 86140; 86677; G0463

== ENCOUNTER → 2019-01-11 | Outpatient (REF) | payer MEDICARE ==
[~2019-01-11] MED LIST changes: -FLAG500T PO; -LEVO750T13 PO; -MAGN296S16 PO; -MIRA3350 PO; -PANT40TA3 PO; -SYMB16INH; +TRAZ-160 PO; -TRAZ-252 PO
[2019-01-11 15:57] LABS: BASO # 0.1 10^3/uL (0.0-0.2); BASO % 0.6 % (0.0-1.0); HEMATOCRIT 37.9 % (36.0-47.0); HEMOGLOBIN 12.3 g/dl (12.0-15.5); MEAN CORPUSCULAR HEMOGLOBIN 28.7 pg (27.0-33.0); MEAN CORPUSCULAR HGB CONC 32.5 g/dl (32.0-36.5); MEAN CORPUSCULAR VOLUME 88.3 fl (80.0-96.0); MONO # 0.7 10^3/uL (0.0-0.8); MONO % 6.9 % (0.0-5.0); NEUTROPHILS # 6.6 10^3/uL (1.8-7.7); NEUTROPHILS % 63.3 % (36.0-66.0); PLATELET COUNT, AUTOMATED 273 10^3/uL (150-450); RED BLOOD COUNT 4.29 10^6/uL (4.00-5.40); WHITE BLOOD COUNT 10.3 10^3/uL (4.0-10.0)
[2019-01-11 16:03] LABS: C REACTIVE PROTEIN QUANTITATIV 1.05 MG/DL (0.00-0.30); RHEUMATOID FACTOR QUANT < 10.0 IU/ML (<15.0)
[2019-01-11 16:15] LABS: ERYTHROCYTE SEDIMENTATION RATE 37 mm/hr (0-30)
[2019-01-14 00:06] LABS: ANTINUCLEAR ANTIBODIES DIRECT Negative (Negative); Lyme Disease IgG/IgM Antibodie <0.91 ISR (0.00-0.90); Lyme Disease IgM Ab Quantitati <0.80 index (0.00-0.79)
== END ==
LOC: M LABDRAW1 15:43
PROVIDERS: ATTEND Orthopaedic Surgery
DX: M17.11 Unilateral primary osteoarthritis, right knee (principal)

== ENCOUNTER → 2019-02-02 | Outpatient (CLI) | payer MEDICARE ==
[~2019-02-02] MED LIST changes: +E-Z-GAS II EFFERVESCENT PACKET (SODIUM BICARB./CITRIC ACID/SIMETHICONE) As Ordered ONE; +E-Z-HD 98% w/w 340GM SUSP BTL As Ordered ONE; +E-Z-PAQUE 96% w/w SUSP 176GM BTL As Ordered ONE; +FLAG500T PO; +LEVO750T13 PO; +MAGN296S16 PO; +MIRA3350 PO; +PANT40TA3 PO; +SYMB16INH; -TRAZ-160 PO; +TRAZ-252 PO
--- NOTE | 2019-02-02 19:29 | REP ---
Upper GI air contrast The procedure was performed under the direct supervision of Dr. Hoffman. The images were reviewed with Dr. Hoffman The car rental manager film shows no organomegaly or pathological masses. The intestinal gas pattern is non-specific. Liquid barium and gas producing crystals were given in the erect position as well as liquid barium in the prone oblique position in order to perform a double contrast upper GI examination. The oral and pharyngeal stages of deglutition are unremarkable. There are esophageal transport there are tertiary waves demonstrated. There is no esophagitis, stricture, mucosal ring or hiatal hernia. There is gastroesophageal reflux demonstrated to above the level of the cesar. Within the stomach there are thickened rugal folds which may represent gastritis. There is no rozina ulcer identified. The duodenal lópez are normally outlined . The mucosal folds are smooth and regular. There is no duodenitis pancreatitis peptic ulcer disease or neoplasm. The visualized portion of the proximal small bowel appears normal in course and caliber. Impression: 1. Tertiary waves 2. There is gastroesophageal reflux demonstrated to above the level of the cesar. 3. There are thickened rugal folds in the stomach which may represent gastritis. There is no rozina ulcer identified. 1.3 minutes of fluoro time was utilized for this procedure. Reviewed by HEATHER Faye 02/02/2019 03:53 P Electronically Signed by Yannick Hoffman MD 02/02/2019 07:19 P
== END ==
LOC: M RAD 07:49
PROVIDERS: ATTEND Family Medicine
DX: K21.9 Gastro-esophageal reflux disease without esophagitis (principal)

== ENCOUNTER 2019-02-03 17:07 | Emergency (ER) | payer MEDICARE ==
[~2019-02-03] VITALS: Ht 154.9 cm; Wt 62.8 kg
[~2019-02-03 17:07] MED LIST changes: -E-Z-GAS II EFFERVESCENT PACKET (SODIUM BICARB./CITRIC ACID/SIMETHICONE) As Ordered ONE; -E-Z-HD 98% w/w 340GM SUSP BTL As Ordered ONE; -E-Z-PAQUE 96% w/w SUSP 176GM BTL As Ordered ONE; -FLAG500T PO; -LEVO750T13 PO; -MAGN296S16 PO; -MIRA3350 PO; -PANT40TA3 PO; -SYMB16INH
[2019-02-03] MEDS ORDERED: SYMB16INH (17:27)
[2019-02-03] MEDS ORDERED: NS 1,000 ML IV ONE (17:45)
[2019-02-03] MEDS ORDERED: ONDANSETRON 4MG/2ML VIAL (J2405) IV ONE (17:45)
[2019-02-03] MEDS ORDERED: KETOROLAC 30 MG/ML VIAL (J1885) IV ONE (17:45)
[2019-02-03 17:59] LABS: BASO # 0.1 10^3/uL (0.0-0.2); BASO % 0.6 % (0.0-1.0); HEMATOCRIT 40.2 % (36.0-47.0); HEMOGLOBIN 13.2 g/dl (12.0-15.5); LYMPH # 2.5 10^3/uL (1.5-4.5); LYMPH % 21.8 % (24.0-44.0); MEAN CORPUSCULAR HEMOGLOBIN 29.4 pg (27.0-33.0); MEAN CORPUSCULAR HGB CONC 32.8 g/dl (32.0-36.5); MEAN CORPUSCULAR VOLUME 89.5 fl (80.0-96.0); MONO # 0.8 10^3/uL (0.0-0.8); MONO % 6.9 % (0.0-5.0); NEUTROPHILS # 8.2 10^3/uL (1.8-7.7); NEUTROPHILS % 70.4 % (36.0-66.0); PLATELET COUNT, AUTOMATED 253 10^3/uL (150-450); RED BLOOD COUNT 4.49 10^6/uL (4.00-5.40); WHITE BLOOD COUNT 11.6 10^3/uL (4.0-10.0)
[2019-02-03] MEDS ORDERED: MORPHINE 4 MG/ML 1ML VIAL/SYRINGE (J2270) IV ONE (18:00)
[2019-02-03 18:13] LABS: ALBUMIN 3.7 GM/DL (3.2-5.2); ALT/SGPT 18 U/L (12-78); BILIRUBIN,DIRECT < 0.1 MG/DL (0.0-0.2); BILIRUBIN,TOTAL 0.2 MG/DL (0.2-1.0); BLOOD UREA NITROGEN 11 MG/DL (7-18); CALCIUM LEVEL 8.8 MG/DL (8.8-10.2); CARBON DIOXIDE LEVEL 26 MEQ/L (21-32); CHLORIDE LEVEL 104 MEQ/L (98-107); CREATININE FOR GFR 0.96 MG/DL (0.55-1.30); GLOMERULAR FILTRATION RATE > 60.0 (>45); GLUCOSE, FASTING 94 MG/DL (70-100); LIPASE 180 U/L (73-393); POTASSIUM SERUM 4.2 MEQ/L (3.5-5.1); SODIUM LEVEL 138 MEQ/L (136-145); TOTAL PROTEIN 6.9 GM/DL (6.4-8.2)
[2019-02-03] MEDS ORDERED: MAGNESIUM CITRATE 300 ML BTL PO ONE (20:15)
[2019-02-03] MEDS ORDERED: IPRATROPIUM 0.5MG/ALBUTEROL 2.5MG INH SOL UD 3ML (DUONEB)(J7620) NEB ONE (20:30)
[2019-02-03] MEDS ORDERED: LACTULOSE 20 GM/30 ML SYRUP UD PO ONE (23:00)
[2019-02-04 00:17] VITALS: BP 112/57
[2019-02-04] MEDS ORDERED: PANT40TA3 PO (00:33)
[2019-02-04] MEDS ORDERED: SUCR1SS PO (00:33)
[2019-02-04] MEDS ORDERED: MIRA3350 PO (00:40)
[2019-02-04] MEDS ORDERED: MAGN296S16 PO (00:40)
--- NOTE | 2019-02-04 09:24 | REP ---
ABDOMINAL SERIES: Supine and erect views of the abdomen demonstrate no free air and no evidence for obstruction. No dilated small bowel loops are seen. There is mild barium scattered throughout the nondistended colon from an upper GI series performed one day ago. There are mild degenerative changes of the spine. IMPRESSION: No free air or obstruction. Electronically Signed by Yannick Hoffman MD 02/04/2019 04:25 P
[2019-02-05] MEDS ORDERED: LEVO750T13 PO (23:01)
[2019-02-05] MEDS ORDERED: FLAG500T PO (23:01)
== END 2019-02-04 00:51 | disposition home or self-care (01) ==
LOC: M ED 17:07
DX: K59.00 Constipation, unspecified (principal); K29.70 Gastritis, unspecified, without bleeding; I10 Essential (primary) hypertension; J44.9 Chronic obstructive pulmonary disease, unspecified; K21.9 Gastro-esophageal reflux disease without esophagitis; M81.0 Age-related osteoporosis without current pathological fracture; F41.9 Anxiety disorder, unspecified; G47.00 Insomnia, unspecified; Z79.899 Other long term (current) drug therapy; Z88.0 Allergy status to penicillin; Z88.2 Allergy status to sulfonamides; Z88.1 Allergy status to other antibiotic agents; F17.210 Nicotine dependence, cigarettes, uncomplicated
CPT/HCPCS: 74019; 80048; 80076; 81001; 83690; 85025; 87086; 94640; 96374; 96375; 99284; J1885; J2270; J2405

== ENCOUNTER 2019-02-05 17:39 | Emergency (ER) | payer MEDICARE ==
[~2019-02-05] VITALS: Ht 154.9 cm; Wt 62.3 kg
[~2019-02-05 17:39] MED LIST changes: +MAGN296S16 PO; +MIRA3350 PO; +PANT40TA3 PO; +SYMB16INH
[2019-02-05] MEDS ORDERED: ONDANSETRON 4MG/2ML VIAL (J2405) IV ONE (19:00)
[2019-02-05] MEDS ORDERED: NS 1,000 ML IV ONE (19:00)
[2019-02-05] MEDS ORDERED: MORPHINE 4 MG/ML 1ML VIAL/SYRINGE (J2270) IV ONE (19:00)
[2019-02-05 19:23] LABS: BASO % 0.4 % (0.0-1.0); HEMATOCRIT 33.9 % (36.0-47.0); LYMPH # 2.2 10^3/uL (1.5-4.5); LYMPH % 20.5 % (24.0-44.0); MEAN CORPUSCULAR HEMOGLOBIN 28.7 pg (27.0-33.0); MEAN CORPUSCULAR HGB CONC 32.4 g/dl (32.0-36.5); MEAN CORPUSCULAR VOLUME 88.5 fl (80.0-96.0); MONO # 0.8 10^3/uL (0.0-0.8); MONO % 7.5 % (0.0-5.0); NEUTROPHILS # 7.7 10^3/uL (1.8-7.7); NEUTROPHILS % 71.2 % (36.0-66.0); PLATELET COUNT, AUTOMATED 214 10^3/uL (150-450); RED BLOOD COUNT 3.83 10^6/uL (4.00-5.40); WHITE BLOOD COUNT 10.9 10^3/uL (4.0-10.0)
[2019-02-05 19:43] LABS: ALT/SGPT 14 U/L (12-78); AMYLASE 22 U/L (25-115); BILIRUBIN,DIRECT 0.1 MG/DL (0.0-0.2); BILIRUBIN,TOTAL 0.3 MG/DL (0.2-1.0); BLOOD UREA NITROGEN 11 MG/DL (7-18); CALCIUM LEVEL 8.6 MG/DL (8.8-10.2); CARBON DIOXIDE LEVEL 32 MEQ/L (21-32); CHLORIDE LEVEL 105 MEQ/L (98-107); CREATININE FOR GFR 0.76 MG/DL (0.55-1.30); GLOMERULAR FILTRATION RATE > 60.0 (>45); GLUCOSE, FASTING 102 MG/DL (70-100); LIPASE 125 U/L (73-393); POTASSIUM SERUM 3.8 MEQ/L (3.5-5.1); SODIUM LEVEL 140 MEQ/L (136-145)
[2019-02-05] MEDS ORDERED: ISOVUE-370 76% 100ML VIAL (Q9967) As Ordered ONE (19:56)
--- NOTE | 2019-02-05 21:57 | REPVR ---
EXAM: CT Abdomen and Pelvis With Contrast EXAM DATE/TIME: 02/05/2019 8:01 PM CLINICAL HISTORY: 68 years old, female; Abdominal pain; Localized; Left; Additional info: Left abd pain/guarding TECHNIQUE: Imaging protocol: Axial computed tomography images of the abdomen and pelvis with intravenous contrast. Coronal and sagittal reformatted images were created and reviewed. Radiation optimization: All CT scans at this facility use at least one of these dose optimization techniques: automated exposure control; mA and/or kV adjustment per patient size (includes targeted exams where dose is matched to clinical indication); or iterative reconstruction. Contrast material: ISOVUE 370; Contrast volume: 100 ml; Contrast route: IV; COMPARISON: CT ABD PELVIS W/O CONTRAST 04/17/2018 2:45 PM FINDINGS: Lungs: Coarse linear opacities in the left lower lobe and lingula suggest discoid atelectasis or scar. Subpleural atelectasis in the right posterior costophrenic angle. Discoid atelectasis or scar in the right middle lobe. Pleural space: Pleural thickening noted in the left lower hemithorax laterally. Mediastinum: There is a small sliding hiatal hernia. ABDOMEN: Liver: Normal. No mass. Gallbladder and bile ducts: Normal. No calcified stones. No ductal dilation. Pancreas: Normal. No ductal dilation. Spleen: Normal. No splenomegaly. Adrenals: There is a left adrenal mass measuring 2.4 x 1.8 x 1.9 cm compared to previous measurement of 2.3 x 1.6 x 1.9 cm. In the previous noncontrast CT the lesion has a density measurement of 9H consistent with an benign adrenal adenoma Kidneys and ureters: There is a parapelvic cyst or focally dilated calyx in the upper pole of the left kidney with a density measurement of 64H. On the noncontrast study in dated 04/17/2018, this had a density measurement of 40 H. Stomach and bowel: High-density barium noted within the colon. There is mild circumferential thickening noted of the distal descending colon, and sigmoid colon. Pericolonic inflammatory change noted at the junction of the distal descending colon and proximal sigmoid colon Appendix: Not seen as a separate structure PELVIS: Bladder: Unremarkable as visualized. Reproductive: Unremarkable as visualized. ABDOMEN and PELVIS: Intraperitoneal space: Artifact related to the barium degrades images of the abdomen and pelvis. Bones/joints: No acute fracture. No dislocation. Soft tissues: Unremarkable. Vasculature: Arteriosclerosis of the abdominal aorta. Lymph nodes: Normal. No enlarged lymph nodes. IMPRESSION: Wall thickening noted of the distal descending colon and sigmoid colon most significant in the proximal sigmoid colon with associated pericolonic inflammatory change. There is beam hardening artifact on the current exam due to the presence of high density barium within the bowel which degrades images of the abdomen and pelvis. On the previous noncontrast CT in 04/17/2018, diverticula were noted in the distal descending and proximal sigmoid colon suggesting that the current inflammation is related to diverticulitis. Colitis is another possibility. Followup to resolution recommended 2. Parapelvic mass in the upper pole of the left kidney. This was not present on CT scan dated 12/09/2015. Differential diagnostic considerations include focally obstructed calyx, hyperdense/complex cyst or neoplasm. MRI or dedicated renal CT with CT urogram might be considered. 3. Pleural thickening at the left lung base laterally. Scarring or discoid atelectasis in the lingula, left lower lobe and right middle lobe. No change. 4. Left adrenal adenoma. COMMENT: Consistent with the [employer]'s Incidental Findings Committee Report (J Am Karsten Radiol 2010): Unless the patient's specific circumstances suggest otherwise, any liver lesion 0.5 cm or less, any cystic kidney lesion less than 1.0 cm, and/or any adrenal lesion 1.0 cm or less not otherwise characterized in this report as possessing suspicious or indeterminate imaging features is/are highly likely to be benign and do not require follow-up imaging or biopsy. Electronically signed by: Eugenia Sanchez On 02/05/2019 21:56:37 PM
[2019-02-05] MEDS ORDERED: metroNIDAZOLE (FLAGYL) 500 MG TAB PO ONE (22:15)
[2019-02-05] MEDS ORDERED: LevoFLOXacin 750 MG TABLET PO ONE (22:15)
[2019-02-05] MEDS ORDERED: FLAG500T PO (23:01)
[2019-02-05] MEDS ORDERED: LEVO750T13 PO (23:01)
[2019-02-05 23:02] VITALS: BP 128/56
--- NOTE | 2019-02-07 10:59 | ED PDOC ---
Post-Departure Follow-Up winnie tinoco and da faxed formal report of ct abd/p for fu Sherif Marshall MD Feb 07, 2019 10:58
== END 2019-02-05 23:12 | disposition home or self-care (01) ==
LOC: M ED 17:39
DX: K57.32 Diverticulitis of large intestine without perforation or abscess without bleeding (principal); D35.00 Benign neoplasm of unspecified adrenal gland; Z79.899 Other long term (current) drug therapy; Z88.0 Allergy status to penicillin; Z88.1 Allergy status to other antibiotic agents; Z88.2 Allergy status to sulfonamides; Z88.5 Allergy status to narcotic agent
CPT/HCPCS: 36415; 74177; 80048; 80076; 81001; 82150; 83605; 83690; 85025; 87086; 96361; 96374; 96375; 99284; J2270; J2405; Q9967

== ENCOUNTER → 2019-02-16 | Outpatient (CLI) | payer MEDICARE ==
[~2019-02-16] MED LIST changes: +FLAG500T PO; +LEVO750T13 PO
[2019-02-16 06:52] LABS: BASO # 0.1 10^3/uL (0.0-0.2); BASO % 0.9 % (0.0-1.0); HEMATOCRIT 37.9 % (36.0-47.0); HEMOGLOBIN 12.5 g/dl (12.0-15.5); LYMPH # 2.3 10^3/uL (1.5-4.5); LYMPH % 26.2 % (24.0-44.0); MEAN CORPUSCULAR HEMOGLOBIN 29.1 pg (27.0-33.0); MEAN CORPUSCULAR VOLUME 88.3 fl (80.0-96.0); MONO # 0.8 10^3/uL (0.0-0.8); MONO % 8.5 % (0.0-5.0); NEUTROPHILS # 5.7 10^3/uL (1.8-7.7); NEUTROPHILS % 64.1 % (36.0-66.0); PLATELET COUNT, AUTOMATED 271 10^3/uL (150-450); RED BLOOD COUNT 4.29 10^6/uL (4.00-5.40); WHITE BLOOD COUNT 8.9 10^3/uL (4.0-10.0)
[2019-02-16 07:08] LABS: HEMOGLOBIN A1c 5.9 %
[2019-02-16 07:23] LABS: ALBUMIN 3.4 GM/DL (3.2-5.2); ALT/SGPT 12 U/L (12-78); BILIRUBIN,TOTAL 0.3 MG/DL (0.2-1.0); BLOOD UREA NITROGEN 9 MG/DL (7-18); CALCIUM LEVEL 8.6 MG/DL (8.8-10.2); CARBON DIOXIDE LEVEL 30 MEQ/L (21-32); CHLORIDE LEVEL 101 MEQ/L (98-107); CREATININE FOR GFR 0.74 MG/DL (0.55-1.30); FREE T4 1.16 NG/DL (0.76-1.46); GLOMERULAR FILTRATION RATE > 60.0 (>45); GLUCOSE, FASTING 81 MG/DL (70-100); POTASSIUM SERUM 3.5 MEQ/L (3.5-5.1); SODIUM LEVEL 137 MEQ/L (136-145); TOTAL PROTEIN 6.2 GM/DL (6.4-8.2)
== END ==
LOC: M LAB 06:00
PROVIDERS: ATTEND Family Medicine
DX: E53.8 Deficiency of other specified B group vitamins (principal); E78.2 Mixed hyperlipidemia; J44.9 Chronic obstructive pulmonary disease, unspecified

== ENCOUNTER → 2019-02-21 | Outpatient (CLI) | payer MEDICARE ==
[~2019-02-21] MED LIST changes: +CYAN100049 PO; +CYAN500T8 PO; +PROHANCE 279.3MG/ML 15ML VIAL (A9576) As Ordered ONE; -VITA10002 PO; -VITA500T3 PO
--- NOTE | 2019-02-21 14:06 | REP ---
MRI ABDOMEN WITH AND WITHOUT CONTRAST: TECHNIQUE: Multiple sequences obtained in the axial and coronal planes prior to and following the intravenous administration of 12 mL ProHance. Correlation made with CT abdomen and pelvis 02/05/2019 as well as multiple other prior studies. That study showed a possible mass in the superior left renal pelvis. Visualized lung bases demonstrate tiny bilateral pleural effusions. No mass is seen in the liver. The gallbladder is grossly unremarkable. There is no evidence of biliary dilatation. The spleen is normal in size with no intrinsic abnormality. Right adrenal gland is normal. The left adrenal gland demonstrates an oval nodule with signal characteristics consistent with an adenoma measuring 2.3 x 1.3 cm. No pancreatic mass is seen. Pancreatic duct is normal in caliber. In the lower pole of the right kidney, there is a 7 mm exophytic cyst, which demonstrates signal characteristics most consistent with a hemorrhagic or proteinaceous cyst. In the superior left renal pelvis, there is a rounded area of abnormal signal which measures 1.3 cm in diameter. It is somewhat hypointense on T2-weighted images and is relatively isointense to renal cortex on T1-weighted images. It does not appear to be significantly enhanced following the administration of gadolinium. This may represent a focal blood clot in the left upper pole collecting system. However, low grade neoplasm cannot be excluded. I see no evidence of adenopathy or free fluid in the visualized abdomen. IMPRESSION: In the upper collecting system of the left kidney, a rounded structure 1.3 cm in diameter does not appear to significantly enhance and may represent a focal blood clot in the superior left renal pelvis. However, this could represent low grade neoplasm. There is a subcentimeter proteinaceous or hemorrhagic cyst of the lower pole of the right kidney. Left adrenal adenoma. Electronically Signed by Yannick Hoffman MD 02/21/2019 04:34 P
== END ==
LOC: M RAD 10:52
PROVIDERS: ATTEND Family Medicine
DX: N28.1 Cyst of kidney, acquired (principal); D35.02 Benign neoplasm of left adrenal gland
CPT/HCPCS: 74183; A9576

== ENCOUNTER → 2019-02-27 | Outpatient (CLI) | payer MEDICARE ==
[~2019-02-27] MED LIST changes: -PROHANCE 279.3MG/ML 15ML VIAL (A9576) As Ordered ONE
--- NOTE | 2019-02-27 11:35 | REPMRS ---
Patient History The patient states she has not had a clinical breast exam in over a year. Patient is postmenopausal and has history of other cancer at age 63. Family history of breast cancer at age 50 or over in paternal grandmother, breast cancer at age 50 or over in paternal aunt. No Hormone Replacement Therapy 3D TOMOSYNTHESIS WAS PERFORMED. [facility] lifetime risk for breast cancer is 4.8%. Digital Woman Screen Mammo: February 27, 2019 - Exam #: [id number] Bilateral CC and MLO view(s) were taken. Technologist: Laurence Manning Technologist Prior study comparison: March 01, 2018, bilateral digital woman screen mammo performed at [facility] [employer] [facility]. March 10, 2017, digital woman screen mammo performed at [facility] [employer] [facility]. FINDINGS: There are scattered fibroglandular densities. There has been no change in the appearance of the mammogram from the prior studies. There is a mild amount of residual fibroglandular tissue which is fairly symmetric. There is no interval development of dominant mass, architectural distortion, or clustered microcalcification suggestive of malignancy. Assessment: BI-RADS/ACR category 1 mammogram. Negative Mammogram. Recommendation Routine screening mammogram in 1 year (for women over age 40). This mammogram was interpreted with the aid of an FDA-approved computer-aided dectection system. Electronically Signed By: Yannick Hoffman MD 02/27/19 1345
== END ==
LOC: M WHC 09:45
PROVIDERS: ATTEND Family Medicine
DX: Z12.31 Encounter for screening mammogram for malignant neoplasm of breast (principal); Z78.0 Asymptomatic menopausal state; Z85.9 Personal history of malignant neoplasm, unspecified

== ENCOUNTER → 2019-03-16 | Outpatient (CLI) | payer MEDICARE ==
--- NOTE | 2019-03-16 07:47 | REP ---
CT of the chest without IV contrast: Comparisons are the most recent prior study of 08/24/1929 teen as well as other prior studies dated 08/24/2018, 07/25/2018, 07/10/2017 and 05/20/2017. The patient has a left lower lobectomy. This is unchanged from the prior studies. There is a 1.2 cm ground-glass density post from medially in her lobe on image 21, not significantly changed from 07/25/2018. Was not present on 07/10/2017. There is a 1 cm ground-glass density in the right upper lobe anterolaterally on image 38. This is unchanged from 07/25/2018. It was not present on 07/10/2017. No other masses or nodules are identified. There are no infiltrates or pleural effusions. There is curvilinear scarring and pleural thickening as a consequence of left thoracotomy inferiorly in the left lung, not significantly changed from 05/20/2017. There is no mediastinal or axillary lymph node enlargement. The study is insensitive for hilar lymph node enlargement in the absence of IV contrast. There are calcified granulomas in the left hilus. This is unchanged. The unenhanced thoracic aorta is unremarkable except for occasional calcified atheroma. Cardiac size is mildly enlarged, unchanged. There is a small pericardial effusion measuring up to 3 mm in depth anteriorly, not significantly changed. Upper abdomen: There is a stable left adrenal nodule, unchanged from a remote study of 08/16/2013. Impression: There are stable findings as described. There are no new or acute cardiopulmonary findings. Electronically Signed by Yannick Rick MD 03/16/2019 07:39 A
== END ==
LOC: M RAD 06:49
PROVIDERS: ATTEND Internal Medicine Pulmonary Disease
DX: R91.8 Other nonspecific abnormal finding of lung field (principal)

== ENCOUNTER 2019-05-13 07:24 | Emergency (ER) | payer MEDICARE ==
[~2019-05-13] VITALS: Ht 154.9 cm; Wt 61.3 kg
[~2019-05-13 07:24] MED LIST changes: -DIPH25CA PO; +DIPH25CA32 PO
[2019-05-13] MEDS ORDERED: SYMB16INH INH (07:38)
--- NOTE | 2019-05-13 08:56 | REP ---
CHEST, TWO VIEWS: Two views of the chest are performed and compared to prior studies, most recently 01/09/2019. Chronic interstitial fibrosis is again seen in the lung bases with left pleural thickening inferiorly. The findings are stable. There is no superimposed acute infiltrate. Heart is normal in size. There is some calcification of the thoracic aorta. The mediastinal silhouette is unchanged. There are degenerative changes of the spine with curvature of the thoracic spine toward the right. IMPRESSION: Chronic fibrotic changes. No acute infiltrate. Electronically Signed by Yannick Hoffman MD 05/13/2019 05:56 P
[2019-05-13 09:11] LABS: BASO # 0.1 10^3/uL (0.0-0.2); BASO % 0.4 % (0.0-1.0); HEMATOCRIT 35.1 % (36.0-47.0); HEMOGLOBIN 11.7 g/dl (12.0-15.5); LYMPH # 1.4 10^3/uL (1.5-5.0); LYMPH % 9.8 % (24.0-44.0); MEAN CORPUSCULAR HEMOGLOBIN 29.3 pg (27.0-33.0); MEAN CORPUSCULAR HGB CONC 33.3 g/dl (32.0-36.5); MONO # 1.3 10^3/uL (0.0-0.8); MONO % 9.2 % (0.0-5.0); NEUTROPHILS # 11.1 10^3/uL (1.5-8.5); NEUTROPHILS % 80.1 % (36.0-66.0); PLATELET COUNT, AUTOMATED 246 10^3/uL (150-450); RED BLOOD COUNT 3.99 10^6/uL (4.00-5.40); WHITE BLOOD COUNT 13.9 10^3/uL (4.0-10.0)
[2019-05-13] MEDS ORDERED: ACETAMINOPHEN 325 MG TAB PO ONE (09:30)
[2019-05-13 09:48] LABS: ALBUMIN 3.2 GM/DL (3.2-5.2); ALT/SGPT 13 U/L (12-78); BILIRUBIN,DIRECT < 0.1 MG/DL (0.0-0.2); BILIRUBIN,TOTAL 0.3 MG/DL (0.2-1.0); BLOOD UREA NITROGEN 9 MG/DL (7-18); CALCIUM LEVEL 8.7 MG/DL (8.8-10.2); CARBON DIOXIDE LEVEL 26 MEQ/L (21-32); CHLORIDE LEVEL 101 MEQ/L (98-107); CREATININE FOR GFR 0.76 MG/DL (0.55-1.30); GLOMERULAR FILTRATION RATE > 60.0 (>39); GLUCOSE, FASTING 81 MG/DL (70-100); NT-PRO BNP 354 PG/ML (<125); POTASSIUM SERUM 3.6 MEQ/L (3.5-5.1); SODIUM LEVEL 135 MEQ/L (136-145); TOTAL PROTEIN 7.1 GM/DL (6.4-8.2)
[2019-05-13] MEDS ORDERED: PRED20TA PO (11:01)
[2019-05-13] MEDS ORDERED: LEVA1TAB2 PO (11:02)
[2019-05-13] MEDS ORDERED: LevoFLOXacin 500 MG TABLET PO ONE ×2 (11:15→11:30)
[2019-05-13 11:30] VITALS: BP 116/65
--- NOTE | 2019-05-13 13:36 | ECGEPIP ---
[facility] - ED Test Date: 2019-05-13 Pat Name: SASHA ZHU Department: Room: - Gender: Female Manager Multimedia: pmo : [id number] Requested By: Laurita Crouch Order Number: [id number] Reading MD: Laurita Crouch Measurements Intervals [place] Rate: 92 P: 83 OR: 154 QRS: 22 QRSD: 88 T: 60 QT: 344 QTc: 426 Interpretive Statements SINUS RHYTHM SEPTAL ND, OLD DECREASED ECTOPY 07/25/18 Electronically Signed on 05-13-2019 13:35:50 EDT by Laurita Crouch
== END 2019-05-13 11:43 | disposition home or self-care (01) ==
LOC: M ED 07:24
DX: J44.9 Chronic obstructive pulmonary disease, unspecified (principal); J40 Bronchitis, not specified as acute or chronic; I10 Essential (primary) hypertension; E78.5 Hyperlipidemia, unspecified; F41.9 Anxiety disorder, unspecified; K21.9 Gastro-esophageal reflux disease without esophagitis; G89.29 Other chronic pain; M54.9 Dorsalgia, unspecified; Z85.118 Personal history of other malignant neoplasm of bronchus and lung; Z79.899 Other long term (current) drug therapy; Z88.0 Allergy status to penicillin; Z88.1 Allergy status to other antibiotic agents; Z88.2 Allergy status to sulfonamides; F17.210 Nicotine dependence, cigarettes, uncomplicated

== ENCOUNTER → 2019-05-18 | Outpatient (REF) | payer MEDICARE ==
[~2019-05-18] MED LIST changes: +LEVA1TAB2 PO; +SYMB16INH INH
[2019-05-18 15:25] LABS: BASO % 0.3 % (0.0-1.0); HEMATOCRIT 36.8 % (36.0-47.0); HEMOGLOBIN 11.8 g/dl (12.0-15.5); LYMPH # 1.3 10^3/uL (1.5-5.0); LYMPH % 12.7 % (24.0-44.0); MEAN CORPUSCULAR HEMOGLOBIN 28.4 pg (27.0-33.0); MEAN CORPUSCULAR HGB CONC 32.1 g/dl (32.0-36.5); MEAN CORPUSCULAR VOLUME 88.7 fl (80.0-96.0); MONO # 0.6 10^3/uL (0.0-0.8); MONO % 5.9 % (0.0-5.0); NEUTROPHILS # 8.3 10^3/uL (1.5-8.5); NEUTROPHILS % 79.1 % (36.0-66.0); PLATELET COUNT, AUTOMATED 319 10^3/uL (150-450); RED BLOOD COUNT 4.15 10^6/uL (4.00-5.40); WHITE BLOOD COUNT 10.4 10^3/uL (4.0-10.0)
[2019-05-18 16:16] LABS: ALBUMIN 3.2 GM/DL (3.2-5.2); ALT/SGPT 16 U/L (12-78); BILIRUBIN,TOTAL 0.2 MG/DL (0.2-1.0); BLOOD UREA NITROGEN 12 MG/DL (7-18); CALCIUM LEVEL 8.5 MG/DL (8.8-10.2); CARBON DIOXIDE LEVEL 31 MEQ/L (21-32); CHLORIDE LEVEL 101 MEQ/L (98-107); CREATININE FOR GFR 0.79 MG/DL (0.55-1.30); FREE T4 1.18 NG/DL (0.76-1.46); GLOMERULAR FILTRATION RATE > 60.0 (>39); GLUCOSE, FASTING 96 MG/DL (70-100); POTASSIUM SERUM 3.6 MEQ/L (3.5-5.1); SODIUM LEVEL 140 MEQ/L (136-145); THYROID STIMULATING HORMONE 0.475 uIU/ML (0.358-3.740); TOTAL PROTEIN 6.4 GM/DL (6.4-8.2)
== END ==
LOC: M SFHCPLAZ 10:30
PROVIDERS: ATTEND Family Medicine
DX: E53.8 Deficiency of other specified B group vitamins (principal); E78.2 Mixed hyperlipidemia; J44.9 Chronic obstructive pulmonary disease, unspecified
CPT/HCPCS: 36415; 80053; 83036; 83525; 84439; 84443; 85025; 85046; G0463

== ENCOUNTER → 2019-06-05 | Outpatient (CLI) | payer MEDICARE ==
[~2019-06-05] MED LIST changes: -OMEP40CA2 PO; +OMEP40CA97 PO; +PROHANCE 279.3MG/ML 15ML VIAL (A9576) As Ordered ONE
--- NOTE | 2019-06-05 18:21 | REP ---
MRI abdomen and kidneys without and with IV contrast: History: Renal mass. Follow-up. Comparison MRI study February 21, 2019 showed a 1.3 cm possible lesion in the left renal collecting system upper pole, blood clot versus low grade neoplasm. Sub-centimeter proteinaceous cyst right kidney and left adrenal adenoma were also observed. Comparison CT study February 05, 2019. Comparison CT study April 17, 2018 and November 18, 2011. Technique: Axial and coronal imaging planes utilized. T1 and T2-weighted sequences include spin-echo, fast spin echo, gradient echo, in and alc-iq-[id number], diffusion weighted scans, and dynamically acquired post contrast images. Contrast enhancement is 12 ml of intravenous ProHance. MRI findings: There is a small benign adrenal adenoma on the left again noted unchanged measuring 2.2 cm in greatest diameter. There is signal drop out on [id number] images within this consistent with intralesional fat. It is unchanged from remote prior CTs. No hepatic or splenic lesion is seen. At the lower pole right kidney there is a tiny low T2 signal intensity proteinaceous cyst again noted. This is less than a centimeter in diameter and is unchanged. Again noted is an area of relatively low T2 signal intensity, non enhancing tissue within the central renal sinus fat of the upper pole of the left kidney. On precontrast images, this is felt to be less prominent than on the prior study, 1.5 cm in greatest diameter. It shows slightly low T2 signal and it intermediate signal on T1 scans. There is no discernible contrast enhancement on early postcontrast images. It is less conspicuous on delayed scan images. I suspect this may be a proteinaceous cyst in the peripelvic region of the upper pole left kidney. Continued followup is advised. No vascular lesion is appreciated. No evidence of adenopathy or new mass. Impression: 1.5 cm area of low to intermediate T2 and T1 signal intensity within the central renal sinus fat upper pole left kidney. This appears less prominent than on the most recent prior MRI study. Proteinaceous cyst is a possibility in the peripelvic region. Continued followup is advised. Electronically Signed by Mario Moscoso MD 06/05/2019 06:51 P
== END ==
LOC: M RAD 12:26
PROVIDERS: ATTEND Family Medicine
DX: N28.89 Other specified disorders of kidney and ureter (principal)
CPT/HCPCS: 74181; A9576

== ENCOUNTER → 2019-08-24 | Outpatient (CLI) | payer MEDICARE ==
[~2019-08-24] MED LIST changes: +CLON0.5T2 PO; -CLON0.5T8 PO; -PROHANCE 279.3MG/ML 15ML VIAL (A9576) As Ordered ONE; +SIMV20TA22 PO; -SIMV40TA2 PO; +SIMV40TA20 PO
[2019-08-24 07:15] LABS: BASO # 0.1 10^3/uL (0.0-0.2); HEMATOCRIT 40.3 % (36.0-47.0); HEMOGLOBIN 12.3 g/dl (12.0-15.5); LYMPH # 2.3 10^3/uL (1.5-5.0); LYMPH % 28.9 % (24.0-44.0); MEAN CORPUSCULAR HGB CONC 30.5 g/dl (32.0-36.5); MEAN CORPUSCULAR VOLUME 91.6 fl (80.0-96.0); MONO # 0.7 10^3/uL (0.0-0.8); MONO % 8.7 % (0.0-5.0); NEUTROPHILS # 4.8 10^3/uL (1.5-8.5); NEUTROPHILS % 61.3 % (36.0-66.0); PLATELET COUNT, AUTOMATED 198 10^3/uL (150-450); WHITE BLOOD COUNT 7.9 10^3/uL (4.0-10.0)
[2019-08-24 07:33] LABS: HEMOGLOBIN A1c 5.7 %
[2019-08-24 07:36] LABS: ALBUMIN 3.6 GM/DL (3.2-5.2); ALT/SGPT 16 U/L (12-78); BILIRUBIN,TOTAL 0.4 MG/DL (0.2-1.0); BLOOD UREA NITROGEN 12 MG/DL (7-18); CALCIUM LEVEL 8.7 MG/DL (8.8-10.2); CARBON DIOXIDE LEVEL 28 MEQ/L (21-32); CHLORIDE LEVEL 109 MEQ/L (98-107); CHOLESTEROL LEVEL 152 MG/DL (<200); CHOLESTEROL RISK RATIO 2.666 (<5); CREATININE FOR GFR 0.78 MG/DL (0.55-1.30); GLOMERULAR FILTRATION RATE > 60.0 (>39); GLUCOSE, FASTING 77 MG/DL (70-100); HDL CHOLESTEROL 57 MG/DL (>40); LDL CHOLESTEROL 81 MG/DL (<100); NON-HDL-C 95 MG/DL; POTASSIUM SERUM 3.9 MEQ/L (3.5-5.1); SODIUM LEVEL 143 MEQ/L (136-145); TOTAL PROTEIN 6.6 GM/DL (6.4-8.2); TRIGLYCERIDES LEVEL 72 MG/DL (<150)
[2019-08-24 09:29] LABS: PTH INTACT 82.3 PG/ML (18.5-88.0)
== END ==
LOC: M LAB 06:21
PROVIDERS: ATTEND Family Medicine
DX: M81.0 Age-related osteoporosis without current pathological fracture (principal); E78.2 Mixed hyperlipidemia; Z79.899 Other long term (current) drug therapy

== ENCOUNTER → 2019-09-06 | Outpatient (CLI) | payer MEDICARE ==
--- NOTE | 2019-09-06 15:25 | REP ---
Left shoulder series: Four views. History: Impingement syndrome. Four views of the left shoulder demonstrate normal alignment of the glenohumeral and acromioclavicular joints. There is diffuse osteopenia. Periarticular soft tissues are unremarkable. There are old healed rib and clavicle fractures on the left. Impression: Diffuse osteopenia. Old rib and left clavicle fractures. No acute bony abnormality. Electronically Signed by Mario Moscoso MD 09/06/2019 03:17 P
== END ==
LOC: M RAD 13:32
PROVIDERS: ATTEND Family Medicine
DX: M85.812 Other specified disorders of bone density and structure, left shoulder (principal); M75.42 Impingement syndrome of left shoulder
CPT/HCPCS: 73030; G0463

== ENCOUNTER → 2019-10-03 | Outpatient (CLI) | payer MEDICARE ==
[~2019-10-03] MED LIST changes: +PROHANCE 279.3MG/ML 15ML VIAL (A9576) As Ordered ONE
--- NOTE | 2019-10-03 09:36 | REP ---
MRI KIDNEYS AND ABDOMEN WITHOUT AND WITH IV GADOLINIUM: HISTORY: Monitoring the upper pole lesion left kidney. Comparison MRI studies are from February 21, 2019 and June 05, 2019. Comparison CT study February 05, 2019. GADOLINIUM ENHANCEMENT DOSE: 12 mL of intravenous ProHance. Axial and coronal imaging planes utilized as before with T1- and T2-weighted sequences including spin echo, fast spin echo, in- and irm-zf-kriie, and dynamically acquired sequential post contrast sequences. MRI FINDINGS: There is a stable benign left adrenal adenoma 1.8 cm in greatest diameter. This is unchanged from 2012. Adrenal mass are otherwise normal. No pancreatic or hepatic lesion is seen. The spleen is unremarkable. No retroperitoneal mass or adenopathy is observed. A 1.5 cm nodular structure is seen in the central renal sinus in the upper pole left kidney. This demonstrates intermediate to low T2 signal and isointense T1 signal. It does not show enhancement and is completely unchanged in the interval since the February 21, 2019 MRI and the February 05, 2019 CT study. No other renal cyst or mass is observed. IMPRESSION: Stable findings upper pole left kidney with proteinaceous parapelvic cyst versus urothelial polyp being the leading differential possibilities. In any event, it is unchanged in the interval since the March 10, 2019. Electronically Signed by Mario Moscoso MD 10/03/2019 04:05 P
== END ==
LOC: M RAD 06:45
PROVIDERS: ATTEND Family Medicine
DX: N28.89 Other specified disorders of kidney and ureter (principal)
CPT/HCPCS: 74183; A9576

== ENCOUNTER → 2019-10-22 | Outpatient (CLI) | payer MEDICARE ==
[~2019-10-22] MED LIST changes: -PROHANCE 279.3MG/ML 15ML VIAL (A9576) As Ordered ONE
--- NOTE | 2019-10-22 13:25 | REPPI ---
CHEST, TWO VIEWS: Comparison 05/13/2019. Two views of the chest are performed. Multiple old left sided healed rib fractures are again noted. There is mild pleural thickening inferiorly bilaterally which is also stable. There is no acute infiltrate. The heart is not enlarged. There is some calcification of the thoracic aorta. Mediastinal silhouette is unchanged. There moderate curvature of the thoracic spine convex to the right with osteopenia and mild degenerative changes. IMPRESSION: Stable chronic findings. No acute pulmonary disease. Electronically Signed by Yannick Hoffman MD 10/22/2019 01:37 P
== END ==
LOC: M PLAIMG 11:37
PROVIDERS: ATTEND Physician Assistant Medical
DX: J44.9 Chronic obstructive pulmonary disease, unspecified (principal)
CPT/HCPCS: 71046; G0463

== ENCOUNTER → 2019-12-03 | Outpatient (CLI) | payer MEDICARE | LOC: M LABSMTC 10:45 | PROVIDERS: ATTEND Family Medicine | DX: Z11.59 Encounter for screening for other viral diseases (principal); Z20.828 Contact with and (suspected) exposure to other viral communicable diseases ==

== ENCOUNTER → 2019-12-07 | Outpatient (REF) | payer MEDICARE ==
[2019-12-07 12:22] LABS: BASO # 0.1 10^3/uL (0.0-0.2); BASO % 0.4 % (0.0-1.0); HEMATOCRIT 38.9 % (36.0-47.0); HEMOGLOBIN 12.9 g/dl (12.0-15.5); LYMPH # 1.4 10^3/uL (1.5-5.0); LYMPH % 7.6 % (24.0-44.0); MEAN CORPUSCULAR HEMOGLOBIN 29.9 pg (27.0-33.0); MEAN CORPUSCULAR HGB CONC 33.2 g/dl (32.0-36.5); MONO # 1.2 10^3/uL (0.0-0.8); MONO % 6.4 % (0.0-5.0); NEUTROPHILS # 15.5 10^3/uL (1.5-8.5); NEUTROPHILS % 85.3 % (36.0-66.0); PLATELET COUNT, AUTOMATED 289 10^3/uL (150-450); RED BLOOD COUNT 4.32 10^6/uL (4.00-5.40); WHITE BLOOD COUNT 18.1 10^3/uL (4.0-10.0)
[2019-12-07 12:58] LABS: BLOOD UREA NITROGEN 11 MG/DL (7-18); CREATININE FOR GFR 0.71 MG/DL (0.55-1.30); GLUCOSE, FASTING 84 MG/DL (70-100)
[2019-12-07 12:59] LABS: CARBON DIOXIDE LEVEL 25 MEQ/L (21-32); CHLORIDE LEVEL 103 MEQ/L (98-107); GLOMERULAR FILTRATION RATE > 60.0 (>39); POTASSIUM SERUM 4.1 MEQ/L (3.5-5.1); SODIUM LEVEL 136 MEQ/L (136-145)
== END ==
LOC: M SFHCPLAZ 10:07
PROVIDERS: ATTEND Family Medicine
DX: R50.9 Fever, unspecified (principal)

== ENCOUNTER → 2019-12-07 | Outpatient (CLI) | payer MEDICARE ==
[~2019-12-07] MED LIST changes: +CYAN500T14 PO; -CYAN500T8 PO; +PANT40TA29 PO; -PANT40TA3 PO
--- NOTE | 2019-12-07 14:07 | REPPI ---
CHEST TWO VIEWS: Two views of the chest performed and compared to a prior study of10/22/2019 as well as other prior exams. Once again, there are multiple old healed left rib fractures. There is mild inferior pleural thickening bilaterally, stable. There are other underlying chronic interstitial changes of the lung bases with no evidence of superimposed acute infiltrate. The heart is not enlarged. The mediastinal silhouette is unchanged. Multiple mediastinal clips are present. There is curvature of the thoracic spine with osteopenia and degenerative changes of the spine. IMPRESSION: Stable chronic findings. No definite superimposed acute infiltrate. Electronically Signed by Yannick Hoffman MD 12/07/2019 04:51 P
== END ==
LOC: M PLAIMG 10:09
PROVIDERS: ATTEND Family Medicine
DX: R50.9 Fever, unspecified (principal)

== ENCOUNTER → 2020-01-17 | Outpatient (CLI) | payer MEDICARE ==
[~2020-01-17] MED LIST changes: -CYAN500T14 PO; +CYAN500T8 PO; -PANT40TA29 PO; +PANT40TA3 PO
--- NOTE | 2020-01-17 11:35 | REPMRS ---
Patient History The patient states she has not had a clinical breast exam in over a year. Family history of breast cancer at age 50 or over in paternal grandmother, breast cancer at age 50 or over in paternal aunt. No Hormone Replacement Therapy Digital Woman Screen Mammo: January 17, 2020 - Exam #: [id number] Bilateral CC and MLO view(s) were taken. Technologist: Elana Shah, Technologist Prior study comparison: February 27, 2019, bilateral digital woman screen mammo performed at [facility]. March 01, 2018, bilateral digital woman screen mammo performed at [facility]. March 10, 2017, digital woman screen mammo performed at [facility]. FINDINGS: There are scattered fibroglandular densities. The Volpara volumetric breast density category is:B. Multiple raised skin moles are seen projecting bilaterally. These are unchanged. There is a stable intramammary lymph node on the left unchanged. There has been no change in the appearance of the mammogram from the prior studies. There is a mild amount of scattered fibroglandular density which is fairly symmetric. There is no interval development of dominant mass, architectural distortion, or grouped microcalcification suggestive of malignancy. 3-D tomosynthesis shows no additional findings. Assessment: BI-RADS/ACR category 2 mammogram. Benign Findings. Recommendation Routine screening mammogram of both breasts in 1 year (for women over age 40). This patient's Lifetime Breast Cancer Risk is estimated at 4.6 %. This mammogram was interpreted with the aid of an FDA-approved computer-aided dectection system. Electronically Signed By: Lalo Moscoso MD 01/17/20 [id number]
--- NOTE | 2020-01-23 09:45 | DEXA ---
AP SPINE L1 - L4 0.801 -3.2 -1.5 LT FEMUR TOTAL 0.705 -2.4 -0.9 LT NECK 0.643 -2.8 -1.1 RT FEMUR TOTAL 0.642 -2.9 -1.4 RT NECK 0.623 -3.0 -1.3 TOTAL BODY TOTAL OTHER COMMENTS: There is osteoporosis of the spine and hips. The decreased density of the spine does represent a significant change. The decreased density of the left hip does represent significant change. The decreased density of the right hip does represent significant change. The density of the spine has increased 17.8% since the initial exam on 08/23/2002. The decreased -8.9% since the most recent exam on 11/23/2017. The density of the left hip has decreased 2.8% since the initial exam on 08/23/2002. The density of the left hip has decreased 2.2% since the most recent exam on 11/23/2017. The density of the right hip has decreased 9.3% since the initial exam on 08/23/2002. The density of the right hip has decreased 17.2% since the most recent exam on 11/23/2017. FOLLOW-UP: Recommendation for the next bone density exam: 2 years. CORDELL
== END ==
LOC: M WHC 10:24
PROVIDERS: ATTEND Family Medicine
DX: Z12.31 Encounter for screening mammogram for malignant neoplasm of breast (principal); M81.0 Age-related osteoporosis without current pathological fracture; Z80.3 Family history of malignant neoplasm of breast

== ENCOUNTER 2020-02-11 06:57 | Outpatient (CLI) | payer MEDICARE ==
[~2020-02-11] VITALS: Ht 154.9 cm; Wt 61.1 kg
[2020-02-11] MEDS ORDERED: ZOLEDRONIC ACID 5 MG in IV 1 EA IV ONE (07:15)
[2020-02-11 07:34] VITALS: BP 138/78
[2020-02-11 08:10] VITALS: BP 129/60
== END 2020-02-11 08:10 | disposition home or self-care (01) ==
LOC: M INFU 06:57
PROVIDERS: ATTEND Family Medicine
DX: M81.0 Age-related osteoporosis without current pathological fracture (principal); Z88.0 Allergy status to penicillin; Z88.2 Allergy status to sulfonamides; Z88.1 Allergy status to other antibiotic agents; Z88.5 Allergy status to narcotic agent
CPT/HCPCS: 96365; J3489

== ENCOUNTER → 2020-03-21 | Outpatient (CLI) | payer MEDICARE ==
[~2020-03-21] MED LIST changes: +PANT40TA29 PO; -PANT40TA3 PO
--- NOTE | 2020-05-12 09:43 | REP ---
CT OF THE CHEST WITHOUT INTRAVENOUS (IV) CONTRAST COMPARISONS: 03/16/2019 and 08/24/2018. 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 This is unchanged. There are chronic left rib deformities and mild left parenchymal scarring as a consequence, these findings are unchanged. There is a 7 mm nodule posteriorly in the apex of the right lung on image 9. On 08/24/2018, this measured 1.2 cm. There is a focal ground-glass density posteromedially in the right upper lobe on image 21. This has not significantly changed from 08/24/2018. There is a ground-glass density anterolaterally in the right upper lobe on image 36 measuring 8.4 mm. This measured 10 mm on 03/16/2019. However, there is now a 4 mm nodular component within this ground-glass density as an interval change. There is a new 1.8 cm ground-glass density in the superior segment of the left upper lobe on image 48, not present previously. There are no other lung nodules or masses. There are bulla scattered throughout the lung yanez bilaterally predominantly in the upper lobes. There is no mediastinal or axillary lymph node enlargement. The study is insensitive for hilar lymph node enlargement in the absence of any contrast. The unenhanced thoracic aorta is unremarkable, except for occasional calcified atheroma. There is thoracic scoliosis convex right, unchanged. (Please See Next Page) There is a 1.2 cm left adrenal nodule, unchanged from both prior studies. The left adrenal is unremarkable. The visualized unenhanced hepatic parenchyma, visualized portions of the gallbladder, pancreas, and spleen are unremarkable. IMPRESSION: There is a new ground-glass density measuring 1.8 cm posteriorly in the superior segment of the right upper lobe, nonspecific. There is a stable ground-glass density posteromedially in the right upper lobe. There is a nodule that has decreased in size posteriorly in the apex of the right lung. There is a ground-glass density anterolaterally in the right upper lobe on image 36 that now contains a 4 mm solid nodular component as an interval change. There are postsurgical findings compatible with left upper lobectomy. There is a stable left adrenal nodule. Thoracic scoliosis convex right is unchanged. MTDD
== END ==
LOC: M RAD 10:49
PROVIDERS: ATTEND Internal Medicine Pulmonary Disease
DX: R91.8 Other nonspecific abnormal finding of lung field (principal)

== ENCOUNTER → 2020-04-15 | Outpatient (CLI) | payer MEDICARE ==
[2020-04-15 07:03] LABS: HEMOGLOBIN 12.2 g/dl (12.0-15.5); MEAN CORPUSCULAR HEMOGLOBIN 29.1 pg (27.0-33.0); MEAN CORPUSCULAR VOLUME 88.3 fl (80.0-96.0); PLATELET COUNT, AUTOMATED 237 10^3/uL (150-450); RED BLOOD COUNT 4.19 10^6/uL (4.00-5.40); WHITE BLOOD COUNT 7.1 10^3/uL (4.0-10.0)
[2020-04-15 08:16] LABS: ALBUMIN 3.4 GM/DL (3.2-5.2); ALT/SGPT 12 U/L (12-78); BILIRUBIN,TOTAL 0.3 MG/DL (0.2-1.0); BLOOD UREA NITROGEN 12 MG/DL (7-18); CALCIUM LEVEL 8.9 MG/DL (8.8-10.2); CARBON DIOXIDE LEVEL 29 MEQ/L (21-32); CHLORIDE LEVEL 107 MEQ/L (98-107); CHOLESTEROL LEVEL 167 MG/DL (<200); CHOLESTEROL RISK RATIO 3.036 (<5); CREATININE FOR GFR 0.68 MG/DL (0.55-1.30); GLOMERULAR FILTRATION RATE > 60.0 (>39); GLUCOSE, FASTING 77 MG/DL (70-100); HDL CHOLESTEROL 55 MG/DL (>40); LDL CHOLESTEROL 96 MG/DL (<100); NON-HDL-C 112 MG/DL; SODIUM LEVEL 138 MEQ/L (136-145); TOTAL PROTEIN 6.3 GM/DL (6.4-8.2); TRIGLYCERIDES LEVEL 78 MG/DL (<150)
[2020-04-15 08:59] LABS: HEMOGLOBIN A1c 5.8 %
== END ==
LOC: M LAB 06:10
PROVIDERS: ATTEND Family Medicine
DX: I10 Essential (primary) hypertension (principal); R73.01 Impaired fasting glucose

== ENCOUNTER → 2020-05-20 | Outpatient (REF) | payer MEDICARE, OTHER | LOC: M SFHCPLAZ 10:19 | PROVIDERS: ATTEND Family Medicine | DX: L57.0 Actinic keratosis (principal) | CPT/HCPCS: 88305; G0463 ==

== ENCOUNTER → 2020-07-03 | Outpatient (REF) | payer MEDICARE ==
[2020-07-03 15:28] LABS: BASO % 0.4 % (0.0-1.0); HEMATOCRIT 41.1 % (36.0-47.0); HEMOGLOBIN 12.9 g/dl (12.0-15.5); LYMPH # 1.6 10^3/uL (1.5-5.0); LYMPH % 15.5 % (24.0-44.0); MEAN CORPUSCULAR HGB CONC 31.4 g/dl (32.0-36.5); MEAN CORPUSCULAR VOLUME 89.2 fl (80.0-96.0); MONO # 0.9 10^3/uL (0.0-0.8); MONO % 8.2 % (0.0-5.0); NEUTROPHILS % 75.6 % (36.0-66.0); PLATELET COUNT, AUTOMATED 204 10^3/uL (150-450); RED BLOOD COUNT 4.61 10^6/uL (4.00-5.40); WHITE BLOOD COUNT 10.5 10^3/uL (4.0-10.0)
[2020-07-03 15:50] LABS: ERYTHROCYTE SEDIMENTATION RATE 41 mm/hr (0-30)
[2020-07-03 16:00] LABS: ALBUMIN 3.5 GM/DL (3.2-5.2); ALT/SGPT 15 U/L (12-78); BILIRUBIN,TOTAL 0.2 MG/DL (0.2-1.0); BLOOD UREA NITROGEN 16 MG/DL (7-18); C REACTIVE PROTEIN QUANTITATIV 7.21 MG/DL (0.00-0.30); CALCIUM LEVEL 8.7 MG/DL (8.8-10.2); CARBON DIOXIDE LEVEL 26 MEQ/L (21-32); CHLORIDE LEVEL 104 MEQ/L (98-107); GLOMERULAR FILTRATION RATE > 60.0 (>39); GLUCOSE, FASTING 125 MG/DL (70-100); LIPASE 134 U/L (73-393); POTASSIUM SERUM 3.7 MEQ/L (3.5-5.1); SODIUM LEVEL 138 MEQ/L (136-145); TOTAL PROTEIN 6.7 GM/DL (6.4-8.2)
== END ==
LOC: M SFHCPLAZ 13:48
PROVIDERS: ATTEND Physician Assistant
DX: R10.32 Left lower quadrant pain (principal); R19.7 Diarrhea, unspecified

== ENCOUNTER → 2020-07-04 | Outpatient (CLI) | payer MEDICARE ==
[~2020-07-04] MED LIST changes: +GASTROGRAFIN SOLUTION 30ML (Q9963) As Ordered ONE; +ISOVUE-370 76% 100ML VIAL As Ordered ONE
--- NOTE | 2020-07-04 10:05 | REP ---
INDICATION: LLQ ABDOMINAL PAIN, DIARRHEA. COMPARISON: CT abdomen 02/05/2019, MRI 10/03/2019 TECHNIQUE: Oral Gastrografin mixture per our bowel contrast protocol and bolus of 100 mL Isovue 370 scanning through the abdomen pelvis with coronal and sagittal reconstructions. Delayed images obtained through the liver. FINDINGS: CT abdomen: Lung bases show some minor fibrotic changes appear stable. No definite hiatal hernia stomach filled with retained food. There is thickening or spasm of the distal antrum at the duodenal bulb. I do the duodenum unremarkable small bowel loops show with oral contrast fluid but without dilatation wall thickening or associated mesenteric edema. No mesenteric adenopathy. There is atherosclerotic calcification of the aorta without aneurysm or dissection. The liver is not enlarged and shows no focal mass or biliary dilatation. Gallbladder without calcified stone or mass. Spleen was unremarkable. Pancreas is unremarkable. A stable left adrenal nodule previously proven to be an adenoma. Right adrenal gland normal. Nodule in the upper pole left kidney representing likely hyperdense cyst is unchanged in appearance and size. There is no hydronephrosis or hydroureter. No renal or ureteral stone. Abdominal portion of the colon shows areas of edematous enhancing thickened wall in the transverse and left colon and some in the right colon as well. I do not see inflammatory changes in the pericolonic fat. No visible appendix. Lung window review of all CT slices in the abdomen/pelvis shows no perforation or free air. No fluid the peritoneal gutters. Bone windows show minor degenerative disc and facet arthritic changes, age-appropriate and without compression deformity or destructive lesion. Visualized ribs are grossly intact. CT pelvis: Bony sacrum, pelvis and hips with minor degenerative change but no fracture or destructive lesions. Small bowel loops in the pelvis contrast filled to the terminal ileum and ileocecal valve without wall thickening or inflammatory changes. Distal left colon sigmoid and rectum also show wall thickening, enhancement and edema with some minor pericolonic inflammatory changes scattered. No gross diverticulosis. No pelvic free fluid or free air. No ventral or inguinal hernia. The bladder shows evidence of pelvic floor muscular relaxation. Uterus absent and the vaginal cuff intact. No bladder mass stone or wall thickening. No distal ureteral dilatation or stone. No pelvic or inguinal adenopathy. IMPRESSION: 1. Diffuse colitis, mild and with pericolonic inflammatory changes in the distal left colon/sigmoid region and with perirectal minor inflammatory changes as well. There is no perforation, abscess or free air. Findings are most consistent with colitis is I do not see any significant diverticulosis. 2. Hyperdense parapelvic cyst suggested upper pole left kidney, appearance unchanged from prior MRIs and CT. 3. Stable left adrenal adenoma. 4. Basilar fibrotic changes, atherosclerotic calcifications aorta and branches. Nothing else acute. <Electronically signed by Alejandro Escamilla > 07/04/20 1008
== END ==
LOC: M RAD 07:42
PROVIDERS: ATTEND Physician Assistant
DX: R10.32 Left lower quadrant pain (principal); D35.02 Benign neoplasm of left adrenal gland; K52.9 Noninfective gastroenteritis and colitis, unspecified; J84.10 Pulmonary fibrosis, unspecified; I70.0 Atherosclerosis of aorta
CPT/HCPCS: 74177; Q9963; Q9967

== ENCOUNTER → 2020-10-06 | Outpatient (CLI) | payer MEDICARE ==
[~2020-10-06] MED LIST changes: +CYAN500T14 PO; -CYAN500T8 PO; -GASTROGRAFIN SOLUTION 30ML (Q9963) As Ordered ONE; -ISOVUE-370 76% 100ML VIAL As Ordered ONE
[2020-10-06 06:52] LABS: ALBUMIN 3.4 GM/DL (3.2-5.2); ALT/SGPT 15 U/L (12-78); BILIRUBIN,TOTAL 0.3 MG/DL (0.2-1.0); BLOOD UREA NITROGEN 15 MG/DL (7-18); CALCIUM LEVEL 8.5 MG/DL (8.8-10.2); CARBON DIOXIDE LEVEL 25 MEQ/L (21-32); CHLORIDE LEVEL 107 MEQ/L (98-107); CREATININE FOR GFR 0.79 MG/DL (0.55-1.30); GLOMERULAR FILTRATION RATE > 60.0 (>39); GLUCOSE, FASTING 88 MG/DL (70-100); POTASSIUM SERUM 4.3 MEQ/L (3.5-5.1); SODIUM LEVEL 140 MEQ/L (136-145); TOTAL PROTEIN 6.4 GM/DL (6.4-8.2)
[2020-10-06 07:03] LABS: MALB URINE SIEMENS 35.2 MG/L; MAU/CREAT RATIO 26.8 MCG/MG (0.0-30.0)
[2020-10-06 07:05] LABS: HEMOGLOBIN A1c 6.1 %
[2020-10-06 10:51] LABS: TOTAL 25(OH) VITAMIN D 63.7 NG/ML (30.0-100.0)
[2020-10-06 10:52] LABS: PTH INTACT 77.7 PG/ML (18.5-88.0)
== END ==
LOC: M LAB 05:56
PROVIDERS: ATTEND Family Medicine
DX: E78.2 Mixed hyperlipidemia (principal); R73.01 Impaired fasting glucose; Z79.899 Other long term (current) drug therapy

== ENCOUNTER → 2020-11-13 | Outpatient (CLI) | payer MEDICARE ==
[~2020-11-13] MED LIST changes: +PROHANCE 279.3MG/ML 15ML VIAL As Ordered ONE
--- NOTE | 2020-11-13 15:25 | REP ---
INDICATION: RENAL MASS. COMPARISON: 10/03/2019, 06/05/2019. TECHNIQUE: Multiple sequences obtained in the axial coronal planes prior to and following the intravenous administration of 11 mL ProHance. FINDINGS: Once again there are no abnormalities identified in the liver or spleen. There is a stable left adrenal adenoma 2.5 cm in maximum diameter. The right adrenal gland is normal. Pancreas demonstrates no abnormality. A proteinaceous or hemorrhagic cyst is seen of the lower pole of the right kidney measuring 1.1 cm in diameter. The oval nodule in the superior left renal collecting system is again noted. Once again this demonstrates relatively isointense signal on both T1 and T2 weighted images. There does not appear to be significant enhancement. This is unchanged since the prior MRI exams dating back to 02/21/2019. Approximate measurements are 2.0 x 1.0 cm. No other renal abnormality is seen. I see no adenopathy or free fluid in the abdomen. IMPRESSION: Stable findings of the upper pole the left kidney centrally, with a stable nonenhancing cyst or polyp unchanged since prior studies dating back to 02/21/2019. <Electronically signed by Yannick Hoffman > 11/13/20 1522
== END ==
LOC: M RAD 13:26
PROVIDERS: ATTEND Family Medicine
DX: N28.89 Other specified disorders of kidney and ureter (principal)
CPT/HCPCS: 74183; A9576

== ENCOUNTER → 2020-12-08 | Outpatient (CLI) | payer MEDICARE ==
[~2020-12-08] MED LIST changes: -PROHANCE 279.3MG/ML 15ML VIAL As Ordered ONE
--- NOTE | 2020-12-08 11:45 | REPPI ---
INDICATION: M54.9 UPPER BACK PAIN COMPARISON: 04/27/2018 TECHNIQUE: AP, lateral, and swimmers views. FINDINGS: Generalized osteopenia, chronic stable dextroconvex scoliosis, and multilevel degenerative changes including endplate sclerosis, marginal osteophytosis and disc space narrowing remains essentially unchanged. No obvious acute fracture/compression injury or subluxation identified IMPRESSION: Chronic osteopenia, degenerative changes, and scoliosis. <Electronically signed by Gaston Kapadia > 12/08/20 1148
== END ==
LOC: M PLAIMG 10:46
PROVIDERS: ATTEND Nurse Practitioner Family
DX: M85.88 Other specified disorders of bone density and structure, other site (principal); M51.34 Other intervertebral disc degeneration, thoracic region; M54.9 Dorsalgia, unspecified
CPT/HCPCS: 72072; G0463

== ENCOUNTER → 2020-12-26 | Outpatient (CLI) | payer MEDICARE ==
--- NOTE | 2020-12-26 14:33 | REPPI ---
INDICATION: R10.9 RIGH FLANK PAIN. COMPARISON: Two view chest of 12/07/2019 FINDINGS: Multiple views of the right ribs show no acute fracture or osseous lesion. Stable left rib deformities are noted on the frontal view of the chest status quo. The accompanying frontal view of the chest is unchanged.. IMPRESSION: No acute abnormalities <Electronically signed by Skip Worley > 12/26/20 0653
== END ==
LOC: M PLAIMG 14:08
PROVIDERS: ATTEND Nurse Practitioner Family
DX: R10.9 Unspecified abdominal pain (principal)

== ENCOUNTER → 2020-12-29 | Outpatient (CLI) | payer MEDICARE ==
--- NOTE | 2020-12-29 11:49 | REPPI ---
INDICATION: R07.81 RIB PAIN ON RIGHT SIDE. COMPARISON: 12/26/2020 TECHNIQUE: Five images were obtained FINDINGS: Examination is limited by technique. There is superimposition of multiple ribs on multiple images. There might be a tiny lucency involving 1 of the right lower ribs which is superimposed upon multiple ribs. IMPRESSION: Findings and limitations as described above. Since the patient complains of severe pain CT examination of the chest is recommended. <Electronically signed by Skip Worley > 12/29/20 [id number]
== END ==
LOC: M PLAIMG 10:07
PROVIDERS: ATTEND Physician Assistant
DX: R07.81 Pleurodynia (principal)
CPT/HCPCS: 71100; G0463

== ENCOUNTER → 2021-01-07 | Outpatient (CLI) | payer MEDICARE ==
[2021-01-07 07:01] LABS: BASO # 0.1 10^3/uL (0.0-0.2); BASO % 0.6 % (0.0-1.0); EOS # 0.1 10^3/uL (0.0-0.5); EOS % 0.8 % (0.0-3.0); HEMATOCRIT 39.2 % (36.0-47.0); HEMOGLOBIN 12.3 g/dl (12.0-15.5); LYMPH # 3.9 10^3/uL (1.5-5.0); MEAN CORPUSCULAR HEMOGLOBIN 28.8 pg (27.0-33.0); MEAN CORPUSCULAR HGB CONC 31.4 g/dl (32.0-36.5); MEAN CORPUSCULAR VOLUME 91.8 fl (80.0-96.0); MONO % 8.4 % (2.0-8.0); NEUTROPHILS # 6.5 10^3/uL (1.5-8.5); NEUTROPHILS % 55.7 % (36.0-66.0); PLATELET COUNT, AUTOMATED 286 10^3/uL (150-450); RED BLOOD COUNT 4.27 10^6/uL (4.00-5.40); WHITE BLOOD COUNT 11.6 10^3/uL (4.0-10.0)
[2021-01-07 07:18] LABS: HEMOGLOBIN A1c 5.7 %
[2021-01-07 07:41] LABS: ALBUMIN 3.4 GM/DL (3.2-5.2); ALT/SGPT 25 U/L (12-78); BILIRUBIN,TOTAL 0.3 MG/DL (0.2-1.0); BLOOD UREA NITROGEN 19 MG/DL (7-18); CALCIUM LEVEL 8.6 MG/DL (8.8-10.2); CARBON DIOXIDE LEVEL 30 MEQ/L (21-32); CHLORIDE LEVEL 107 MEQ/L (98-107); CHOLESTEROL LEVEL 169 MG/DL (<200); CREATININE FOR GFR 0.62 MG/DL (0.55-1.30); FERRITIN 26 NG/ML (8-252); FREE T4 0.89 NG/DL (0.76-1.46); GLOMERULAR FILTRATION RATE > 60.0 (>39); GLUCOSE, FASTING 75 MG/DL (70-100); HDL CHOLESTEROL 64 MG/DL (>40); LDL CHOLESTEROL 88 MG/DL (<100); NON-HDL-C 105 MG/DL; POTASSIUM SERUM 4.1 MEQ/L (3.5-5.1); SODIUM LEVEL 141 MEQ/L (136-145); TOTAL PROTEIN 6.4 GM/DL (6.4-8.2); TRIGLYCERIDES LEVEL 86 MG/DL (<150)
[2021-01-07 08:59] LABS: PTH INTACT 60.5 PG/ML (18.5-88.0); TOTAL 25(OH) VITAMIN D 64.5 NG/ML (30.0-100.0)
[2021-01-07 09:00] LABS: VITAMIN B12 LEVEL 1704 PG/ML (247-911)
== END ==
LOC: M LAB 06:05
PROVIDERS: ATTEND Family Medicine
DX: E55.9 Vitamin D deficiency, unspecified (principal); R73.01 Impaired fasting glucose; E53.8 Deficiency of other specified B group vitamins; Z79.899 Other long term (current) drug therapy

== ENCOUNTER → 2021-01-08 | Outpatient (CLI) | payer MEDICARE ==
--- NOTE | 2021-01-08 09:43 | REPMRS ---
Patient History The patient states she has not had a clinical breast exam in over a year. Pt has had lung cancer in the past. Family history of breast cancer at age 50 or over in paternal grandmother, breast cancer at age 50 or over in paternal aunt. No Hormone Replacement Therapy Patient states no breast complaints today. Patient has signed MRS History Sheet. Digital Woman Screen Mammo: January 08, 2021 - Exam #: [id number] Bilateral CC and MLO view(s) were taken. Technologist: Harleen Nguyen Cloth Tester Quality Prior study comparison: January 17, 2020, bilateral digital woman screen mammo performed at [facility]. February 27, 2019, bilateral digital woman screen mammo performed at [facility]. March 01, 2018, bilateral digital woman screen mammo performed at [facility]. FINDINGS: There are scattered fibroglandular densities. The Volpara volumetric breast density category is:B. There are raised cutaneous moles again noted bilaterally. There has been no change in the appearance of the mammogram from the prior studies. There is a mild amount of scattered fibroglandular density which is fairly symmetric. There is no interval development of dominant mass, architectural distortion, or grouped microcalcification suggestive of malignancy. 3-D tomosynthesis shows no additional findings. Assessment: BI-RADS/ACR category 2 mammogram. Benign Findings. Recommendation Routine screening mammogram of both breasts in 1 year (for women over age 40). This patient's [facility] Lifetime Breast Cancer Risk is estimated at 4.3 %. This mammogram was interpreted with the aid of an FDA-approved computer-aided dectection system. Electronically Signed By: Lalo Moscoso MD 01/08/21 0942
== END ==
LOC: M WHC 08:22
PROVIDERS: ATTEND Family Medicine
DX: Z12.31 Encounter for screening mammogram for malignant neoplasm of breast (principal)

== ENCOUNTER → 2021-02-08 | Outpatient (CLI) | payer MEDICARE ==
[~2021-02-08] MED LIST changes: +OMEP40CA4 PO; -OMEP40CA97 PO
--- NOTE | 2021-02-10 15:51 | REPVR ---
PROCEDURE INFORMATION: Exam: MRA Head Without Contrast; Arteriography Exam date and time: 02/08/2021 2:48 PM Age: 70 years old Clinical indication: Condition or disease; Aneurysm, cerebral; Additional info: Cerebral aneurysm TECHNIQUE: Imaging protocol: Magnetic resonance angiography head without contrast. Exam focused on the arteries. 3D rendering (Not supervised by radiologist): MIP and/or 3D reconstructed images were created by the technologist. COMPARISON: Correlation is made with a report of a similar exam dated 08/11/2009. FINDINGS: ANTERIOR CIRCULATION: Right internal carotid artery: Intracranial segment is patent with no significant stenosis. No aneurysm. Right middle cerebral artery: No occlusion or significant stenosis. Examination again demonstrates a 5 mm aneurysm at the trifurcation of the right middle cerebral artery best appreciated on axial series 201, image 106. 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 The A2 segment is supplied via patent anterior communicating artery and demonstrates normal flow.No occlusion or significant stenosis. No aneurysm. Left internal carotid artery: Intracranial segment is patent with no significant stenosis. No aneurysm. Left middle cerebral artery: No occlusion or significant stenosis. No aneurysm. Left anterior cerebral artery: No occlusion or significant stenosis. No aneurysm. 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 No occlusion or significant stenosis. No aneurysm. Left vertebral artery: No occlusion or significant stenosis. No aneurysm. Dominant. Basilar artery: No occlusion or significant stenosis. No aneurysm. Right posterior cerebral artery: origin. No occlusion or significant stenosis. No aneurysm. Left posterior cerebral artery: No occlusion or significant stenosis. No aneurysm. IMPRESSION: 1. Examination again demonstrates a 5 mm aneurysm at the trifurcation of the right middle cerebral artery best appreciated on axial series 201, image 106. 2. No stenosis.No occlusion. Electronically signed by: Ike Last On 02/10/2021 15:51:18 PM
--- NOTE | 2021-02-10 15:54 | REPVR ---
PROCEDURE INFORMATION: Exam: MR Head Without Contrast Exam date and time: 02/08/2021 2:48 PM Age: 70 years old Clinical indication: Other: Cerebral aneurysm TECHNIQUE: Imaging protocol: MR of the head without contrast. COMPARISON: CT Head without contrast 12/05/2017 8:12 PM FINDINGS: Brain: There is mild patchy increased T2 signal intensity within the bilateral cerebral periventricular white matter, consistent with chronic microvascular ischemic changes. There is a 5 mm rounded aneurysm at the trifurcation of the right middle cerebral artery. There is no abnormal diffusion weighted signal intensity to suggest an acute ischemic event. On gradient echo imaging, no susceptibility changes are seen to represent parenchymal calcification or degraded blood products. There is mild diffuse cerebral atrophy present, consistent with this patient's age. Cerebral ventricles: The ventricular system demonstrates mild diffuse compensatory enlargement. Bones/joints: Unremarkable. Paranasal sinuses: Mild mucosal thickening is seen in the paranasal sinuses. Mastoid air cells: Normal as visualized. No mastoid effusion. Orbital cavity: Unremarkable. Soft tissues: Unremarkable. IMPRESSION: 1. No acute infarction, masses or hemorrhage is seen. No acute intracranial abnormality is identified. 2. Diffuse age-related cerebral atrophy and mild chronic microvascular white matter ischemic changes, without evidence of an acute intracranial abnormality. 3. There is a 5 mm rounded aneurysm at the trifurcation of the right middle cerebral artery. Electronically signed by: Ike Last On 02/10/2021 15:54:43 PM
== END ==
LOC: M RAD 13:18
PROVIDERS: ATTEND Family Medicine
DX: I67.1 Cerebral aneurysm, nonruptured (principal)

== ENCOUNTER 2021-02-25 11:47 | Outpatient (CLI) | payer MEDICARE ==
[2021-02-25 11:50] VITALS: BP 138/63
[2021-02-25] MEDS ORDERED: ZOLEDRONIC ACID 5 MG in IV 1 EA IV ONE (12:00)
[2021-02-25 12:35] VITALS: BP_SYST 58
== END 2021-02-25 12:40 | disposition home or self-care (01) ==
LOC: M INFU 11:47
PROVIDERS: ATTEND Family Medicine
DX: M81.0 Age-related osteoporosis without current pathological fracture (principal); Z88.0 Allergy status to penicillin; Z88.1 Allergy status to other antibiotic agents; Z88.2 Allergy status to sulfonamides; Z88.6 Allergy status to analgesic agent
CPT/HCPCS: 96365; J3489

== ENCOUNTER → 2021-05-08 | Outpatient (CLI) | payer MEDICARE ==
--- NOTE | 2021-05-08 10:35 | REP ---
INDICATION: HX LUNG CA. COMPARISON: 03/21/2020. TECHNIQUE: Low dose screening CT chest performed without the use of intravenous contrast. FINDINGS: Lungs: Diffuse fibrotic changes are noted which are stable. No new suspicious nodular opacity is seen bilaterally. A tiny 3 mm nodular opacity which is felt to represent focal scarring is again seen in the right upper lobe on image 37, unchanged. Heart: Not significantly enlarged. Thoracic aorta: No aneurysm. Visualized osseous structures: There are old bilateral rib fractures. There are degenerative changes of the spine. IMPRESSION: Category [address] of the chest. Recommend follow-up CT in 1 year. <Electronically signed by Yannick Hofmfan > 05/08/21 1030
== END ==
LOC: M RAD 08:19
PROVIDERS: ATTEND Internal Medicine Pulmonary Disease
DX: Z85.118 Personal history of other malignant neoplasm of bronchus and lung (principal); F17.210 Nicotine dependence, cigarettes, uncomplicated; Z79.51 Long term (current) use of inhaled steroids; Z79.899 Other long term (current) drug therapy

== ENCOUNTER → 2021-05-11 | Outpatient (CLI) | payer MEDICARE ==
[2021-05-11 07:03] LABS: APPEARANCE, URINE CLEAR (CLEAR); BILIRUBIN, URINE AUTO NEGATIVE (NEGATIVE); BLOOD, URINE BLOOD 2+ (NEGATIVE); COLOR, URINE YELLOW (YELLOW); GLUCOSE, URINE (UA) AUTO NEGATIVE (NEGATIVE); KETONE, URINE AUTO NEGATIVE (NEGATIVE); LEUKOCYTE ESTERASE, URINE AUTO 1+ (NEGATIVE); NITRITE, URINE AUTO NEGATIVE (NEGATIVE); PROTEIN, URINE AUTO NEGATIVE (NEGATIVE); UROBILINOGEN, URINE AUTO 0.2 mg/dL (0.0-2.0)
[2021-05-11 07:20] LABS: BASO # 0.1 10^3/uL (0.0-0.2); HEMATOCRIT 38.3 % (36.0-47.0); HEMOGLOBIN 12.1 g/dl (12.0-15.5); LYMPH # 2.3 10^3/uL (1.5-5.0); LYMPH % 26.6 % (24.0-44.0); MEAN CORPUSCULAR HEMOGLOBIN 28.5 pg (27.0-33.0); MEAN CORPUSCULAR HGB CONC 31.6 g/dl (32.0-36.5); MEAN CORPUSCULAR VOLUME 90.1 fl (80.0-96.0); MONO # 0.8 10^3/uL (0.0-0.8); MONO % 9.1 % (2.0-8.0); NEUTROPHILS # 5.5 10^3/uL (1.5-8.5); NEUTROPHILS % 63.1 % (36.0-66.0); PLATELET COUNT, AUTOMATED 246 10^3/uL (150-450); RED BLOOD COUNT 4.25 10^6/uL (4.00-5.40); WHITE BLOOD COUNT 8.7 10^3/uL (4.0-10.0)
[2021-05-11 07:21] LABS: HEMOGLOBIN A1c 5.5 %
[2021-05-11 07:22] LABS: HEMATOCRIT 38.3 % (36.0-47.0)
[2021-05-11 07:25] LABS: BACTERIA, URINE AUTO NEGATIVE (NEGATIVE); RBC, URINE AUTO 6 /HPF (0-3); SQUAMOUS EPITHELIAL CELL UR AU 1 /HPF (0-6); WBC, URINE AUTO 2 /HPF (0-3)
[2021-05-11 07:44] LABS: ALBUMIN 3.2 GM/DL (3.2-5.2); ALT/SGPT 15 U/L (12-78); BILIRUBIN,TOTAL 0.4 MG/DL (0.2-1.0); BLOOD UREA NITROGEN 13 MG/DL (7-18); CALCIUM LEVEL 8.5 MG/DL (8.8-10.2); CARBON DIOXIDE LEVEL 28 MEQ/L (21-32); CHLORIDE LEVEL 109 MEQ/L (98-107); CREATININE FOR GFR 0.61 MG/DL (0.55-1.30); FERRITIN 28 NG/ML (8-252); GLOMERULAR FILTRATION RATE > 60.0 (>39); GLUCOSE, FASTING 77 MG/DL (70-100); NT-PRO BNP 107 PG/ML (<125); POTASSIUM SERUM 4.1 MEQ/L (3.5-5.1); SODIUM LEVEL 142 MEQ/L (136-145); TOTAL PROTEIN 6.5 GM/DL (6.4-8.2)
[2021-05-11 07:45] LABS: CREATININE, URINE 72.2 MG/DL; MALB URINE SIEMENS 10.8 MG/L; MAU/CREAT RATIO 14.9 MCG/MG (0.0-30.0)
[2021-05-11 11:40] LABS: VITAMIN B12 LEVEL 412 PG/ML (247-911)
== END ==
LOC: M LAB 06:07
PROVIDERS: ATTEND Family Medicine
DX: E53.8 Deficiency of other specified B group vitamins (principal); Z79.899 Other long term (current) drug therapy; E78.2 Mixed hyperlipidemia; E55.9 Vitamin D deficiency, unspecified; R73.01 Impaired fasting glucose

== ENCOUNTER 2021-08-04 18:28 | Emergency (ER) | payer MEDICARE ==
[~2021-08-04] VITALS: Ht 152.4 cm; Wt 56.8 kg
[2021-08-04] MEDS ORDERED: IPRATROPIUM 0.5MG/ALBUTEROL 2.5MG INH SOL UD 3ML (DUONEB) NEB ONE (19:50)
[2021-08-04 20:40] LABS: BASO # 0.1 10^3/uL (0.0-0.2); BASO % 0.3 % (0.0-1.0); HEMATOCRIT 37.8 % (36.0-47.0); HEMOGLOBIN 12.3 g/dl (12.0-15.5); LYMPH % 5.2 % (24.0-44.0); MEAN CORPUSCULAR HGB CONC 32.5 g/dl (32.0-36.5); MEAN CORPUSCULAR VOLUME 89.2 fl (80.0-96.0); MONO % 5.1 % (2.0-8.0); NEUTROPHILS # 16.9 10^3/uL (1.5-8.5); PLATELET COUNT, AUTOMATED 214 10^3/uL (150-450); RED BLOOD COUNT 4.24 10^6/uL (4.00-5.40); WHITE BLOOD COUNT 18.9 10^3/uL (4.0-10.0)
[2021-08-04] MEDS ORDERED: ACETAMINOPHEN 325 MG TAB PO ONE (21:00)
[2021-08-04 21:17] LABS: ALBUMIN 3.4 GM/DL (3.2-5.2); ALT/SGPT 17 U/L (12-78); BILIRUBIN,TOTAL 0.3 MG/DL (0.2-1.0); BLOOD UREA NITROGEN 20 MG/DL (7-18); CALCIUM LEVEL 8.5 MG/DL (8.8-10.2); CARBON DIOXIDE LEVEL 27 MEQ/L (21-32); CHLORIDE LEVEL 106 MEQ/L (98-107); CREATININE FOR GFR 0.78 MG/DL (0.55-1.30); GLOMERULAR FILTRATION RATE > 60.0 (>39); GLUCOSE, FASTING 113 MG/DL (70-100); MAGNESIUM LEVEL 1.6 MG/DL (1.8-2.4); POTASSIUM SERUM 3.8 MEQ/L (3.5-5.1); SODIUM LEVEL 139 MEQ/L (136-145); TOTAL PROTEIN 6.5 GM/DL (6.4-8.2)
[2021-08-04] MEDS ORDERED: MAG SULF 1GM/100ML (MAG RUN) 1 GM in IV 1 EA IV ONE (21:30)
--- NOTE | 2021-08-04 22:17 | REPVR ---
PROCEDURE INFORMATION: Exam: XR Chest Exam date and time: 08/04/2021 7:57 PM Age: 71 years old Clinical indication: Cough and fever TECHNIQUE: Imaging protocol: XR of the chest. Views: 1 view. COMPARISON: CR RIBS UNILATERAL W/O PA CHEST 12/29/2020 11:06 AM FINDINGS: Lungs: Unremarkable. No consolidation. Pleural spaces: Small left pleural effusion. Heart/Mediastinum: Unremarkable. No cardiomegaly. Bones/joints: Scoliosis of the thoracic spine. IMPRESSION: Small left pleural effusion with underlying atelectasis/infiltrates. Electronically signed by: George Singh On 08/04/2021 22:17:01 PM
[2021-08-04] MEDS ORDERED: LEVO750T13 PO ×2 (22:39→22:44)
[2021-08-04] MEDS ORDERED: LevoFLOXacin 750 MG TABLET PO ONE (22:50)
[2021-08-05] MEDS ORDERED: NS 500 ML IV ONE ×2 (00:20)
[2021-08-05 03:00] VITALS: BP 176/79
[2021-08-05] MEDS ORDERED: PRED20TA PO (03:21)
--- NOTE | 2021-08-05 05:57 | ECGEPIP ---
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
--- NOTE | 2021-08-05 06:00 | ECGEPIP ---
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
== END 2021-08-05 03:24 | disposition home or self-care (01) ==
LOC: M ED 18:28
DX: J18.9 Pneumonia, unspecified organism (principal); I10 Essential (primary) hypertension; J44.9 Chronic obstructive pulmonary disease, unspecified; F33.9 Major depressive disorder, recurrent, unspecified; E78.5 Hyperlipidemia, unspecified; K21.9 Gastro-esophageal reflux disease without esophagitis; Z99.81 Dependence on supplemental oxygen; Z79.899 Other long term (current) drug therapy; Z88.0 Allergy status to penicillin; Z88.1 Allergy status to other antibiotic agents; Z88.2 Allergy status to sulfonamides; Z88.5 Allergy status to narcotic agent
CPT/HCPCS: 71045; 80053; 83735; 84484; 85025; 87798; 93005; 94640; 96361; 96365; 99285; J3475

== ENCOUNTER → 2021-09-08 | Outpatient (CLI) | payer MEDICARE ==
[~2021-09-08] MED LIST changes: -CEFD1CAP8; +CEFD300C41; -CITA40TA4 PO; +CITA40TA7 PO; -LEVO500T3; -LEVO500T3 PO; +LEVO500T4; +LEVO500T4 PO
[2021-09-08 07:05] LABS: BASO # 0.1 10^3/uL (0.0-0.2); BASO % 0.8 % (0.0-1.0); HEMOGLOBIN 12.1 g/dl (12.0-15.5); LYMPH # 2.1 10^3/uL (1.5-5.0); LYMPH % 22.9 % (24.0-44.0); MEAN CORPUSCULAR HEMOGLOBIN 29.3 pg (27.0-33.0); MEAN CORPUSCULAR HGB CONC 32.7 g/dl (32.0-36.5); MEAN CORPUSCULAR VOLUME 89.6 fl (80.0-96.0); MONO # 0.8 10^3/uL (0.0-0.8); MONO % 8.7 % (2.0-8.0); NEUTROPHILS % 67.3 % (36.0-66.0); PLATELET COUNT, AUTOMATED 257 10^3/uL (150-450); RED BLOOD COUNT 4.13 10^6/uL (4.00-5.40)
[2021-09-08 07:28] LABS: HEMOGLOBIN A1c 5.5 %
[2021-09-08 07:42] LABS: ALBUMIN 3.2 GM/DL (3.2-5.2); ALT/SGPT 17 U/L (12-78); BILIRUBIN,TOTAL 0.1 MG/DL (0.2-1.0); BLOOD UREA NITROGEN 19 MG/DL (7-18); CARBON DIOXIDE LEVEL 30 MEQ/L (21-32); CHLORIDE LEVEL 106 MEQ/L (98-107); CHOLESTEROL LEVEL 174 MG/DL (<200); CHOLESTEROL RISK RATIO 3.107 (<5); CREATININE FOR GFR 0.78 MG/DL (0.55-1.30); GLOMERULAR FILTRATION RATE > 60.0 (>39); GLUCOSE, FASTING 120 MG/DL (70-100); HDL CHOLESTEROL 56 MG/DL (>40); LDL CHOLESTEROL 103 MG/DL (<100); NON-HDL-C 118 MG/DL; POTASSIUM SERUM 3.8 MEQ/L (3.5-5.1); SODIUM LEVEL 140 MEQ/L (136-145); TOTAL PROTEIN 6.3 GM/DL (6.4-8.2); TRIGLYCERIDES LEVEL 73 MG/DL (<150)
[2021-09-08 09:12] LABS: TOTAL 25(OH) VITAMIN D 84.2 NG/ML (30.0-100.0)
[2021-09-08 09:14] LABS: VITAMIN B12 LEVEL 487 PG/ML (247-911)
== END ==
LOC: M LAB 06:13
PROVIDERS: ATTEND Nurse Practitioner Family
DX: E55.9 Vitamin D deficiency, unspecified (principal); R73.01 Impaired fasting glucose; E78.2 Mixed hyperlipidemia; Z79.51 Long term (current) use of inhaled steroids; Z79.899 Other long term (current) drug therapy

== ENCOUNTER → 2021-12-02 | Outpatient (REF) | payer MEDICARE | LOC: M SFHCPLAZ 16:49 | PROVIDERS: ATTEND Family Medicine | DX: J06.9 Acute upper respiratory infection, unspecified (principal) ==

== ENCOUNTER → 2022-01-25 | Outpatient (CLI) | payer MEDICARE ==
[~2022-01-25] MED LIST changes: +ALBU2.5V10 INH; -ALBU83IN INH
[2022-01-25 07:14] LABS: BASO # 0.1 10^3/uL (0.0-0.2); EOS # 0.1 10^3/uL (0.0-0.5); EOS % 1.2 % (0.0-3.0); HEMATOCRIT 36.9 % (36.0-47.0); HEMOGLOBIN 11.7 g/dl (12.0-15.5); LYMPH # 2.4 10^3/uL (1.5-5.0); LYMPH % 29.8 % (24.0-44.0); MEAN CORPUSCULAR HEMOGLOBIN 28.8 pg (27.0-33.0); MEAN CORPUSCULAR HGB CONC 31.7 g/dl (32.0-36.5); MEAN CORPUSCULAR VOLUME 90.9 fl (80.0-96.0); MONO # 0.8 10^3/uL (0.0-0.8); MONO % 9.4 % (2.0-8.0); NEUTROPHILS # 4.7 10^3/uL (1.5-8.5); NEUTROPHILS % 58.5 % (36.0-66.0); PLATELET COUNT, AUTOMATED 223 10^3/uL (150-450); RED BLOOD COUNT 4.06 10^6/uL (4.00-5.40); WHITE BLOOD COUNT 8.1 10^3/uL (4.0-10.0)
[2022-01-25 07:24] LABS: ALBUMIN 3.3 GM/DL (3.2-5.2); BLOOD UREA NITROGEN 14 MG/DL (7-18); CALCIUM LEVEL 9.1 MG/DL (8.8-10.2); CARBON DIOXIDE LEVEL 31 MEQ/L (21-32); CHLORIDE LEVEL 105 MEQ/L (98-107); CREATININE FOR GFR 0.76 MG/DL (0.55-1.30); FERRITIN 29 NG/ML (8-252); GLOMERULAR FILTRATION RATE > 60.0 (>39); GLUCOSE, FASTING 78 MG/DL (70-100); NT-PRO BNP 113 PG/ML (<125); PHOSPHORUS LEVEL 3.4 MG/DL (2.5-4.9); POTASSIUM SERUM 4.1 MEQ/L (3.5-5.1); SODIUM LEVEL 140 MEQ/L (136-145)
[2022-01-25 07:32] LABS: HEMOGLOBIN A1c 5.4 %
[2022-01-25 11:44] LABS: PTH INTACT 59.6 PG/ML (18.5-88.0); TOTAL 25(OH) VITAMIN D 86.5 NG/ML (30.0-100.0); VITAMIN B12 LEVEL 501 PG/ML (247-911)
== END ==
LOC: M LAB 06:08
PROVIDERS: ATTEND Family Medicine
DX: R73.01 Impaired fasting glucose

== ENCOUNTER 2022-02-10 10:50 | Outpatient (CLI) | payer MEDICARE ==
[~2022-02-10] VITALS: Ht 154.9 cm; Wt 57.7 kg
[2022-02-10 10:50] VITALS: BP 136/66
[~2022-02-10 10:50] MED LIST changes: +ALBUTEROL SULFATE 2.5 MG/0.5 ML INH NEB SOLN INH PRN; +EPINEPHrine INJ 1 MG/ML 1ML AMP IM PRN; +diphenhydrAMINE 50MG/ML VIAL (J1200) IV PRN; +methylPREDNISolone 125MG 2ML VIAL IV PRN
[2022-02-10] MEDS ORDERED: IRON SUCROSE 250 MG in NS 250 ML IV ONE (11:00)
[2022-02-10] MEDS ORDERED: NS 1,000 ML IV SCH (11:00)
[2022-02-10] MEDS ORDERED: RECL5INJ2 IV (11:50)
[2022-02-10] MEDS ORDERED: PROV108A INH (11:53)
[2022-02-10] MEDS ORDERED: ONDA4TAB6 PO (11:53)
[2022-02-10] MEDS ORDERED: BENA25CA4 PO (11:53)
[2022-02-10 13:00] VITALS: BP 130/60
[2022-02-10 14:05] VITALS: BP 141/66
== END 2022-02-10 12:50 | disposition home or self-care (01) ==
LOC: M INFU 10:50
PROVIDERS: ATTEND Family Medicine
DX: D50.9 Iron deficiency anemia, unspecified (principal)
CPT/HCPCS: 96365; J1756

== ENCOUNTER → 2022-02-12 | Outpatient (CLI) | payer MEDICARE ==
[~2022-02-12] MED LIST changes: -ALBUTEROL SULFATE 2.5 MG/0.5 ML INH NEB SOLN INH PRN; +BENA25CA4 PO; -EPINEPHrine INJ 1 MG/ML 1ML AMP IM PRN; +ONDA4TAB6 PO; +PROV108A INH; +RECL5INJ2 IV; -diphenhydrAMINE 50MG/ML VIAL (J1200) IV PRN; -methylPREDNISolone 125MG 2ML VIAL IV PRN
== END ==
LOC: M WHC 08:24
PROVIDERS: ATTEND Family Medicine
DX: Z12.31 Encounter for screening mammogram for malignant neoplasm of breast (principal)

== ENCOUNTER 2022-03-15 08:52 | Outpatient (CLI) | payer MEDICARE ==
[~2022-03-15] VITALS: Ht 152.4 cm; Wt 57.7 kg
[2022-03-15] MEDS ORDERED: ZOLEDRONIC ACID 5 MG in IV 1 EA IV ONE (09:00)
[2022-03-15 09:22] VITALS: BP 137/60
[2022-03-15 09:37] VITALS: BP 135/65
== END 2022-03-15 09:40 ==
LOC: M INFU 08:52
PROVIDERS: ATTEND Family Medicine
DX: M81.0 Age-related osteoporosis without current pathological fracture (principal); Z88.0 Allergy status to penicillin; Z88.1 Allergy status to other antibiotic agents; Z88.2 Allergy status to sulfonamides; Z88.6 Allergy status to analgesic agent
CPT/HCPCS: 96365; J3489

== ENCOUNTER → 2022-03-16 | Outpatient (REF) | payer MEDICARE | LOC: M SFHCPLAZ 10:20 | PROVIDERS: ATTEND Family Medicine | DX: L82.1 Other seborrheic keratosis (principal) ==

== ENCOUNTER → 2022-04-15 | Outpatient (CLI) | payer MEDICARE ==
[~2022-04-15] MED LIST changes: +LEVO1TAB39; +LEVO1TAB39 PO; +LEVO1TAB40 PO; -LEVO500T4; -LEVO500T4 PO; -LEVO750T13 PO
[2022-04-15 15:46] LABS: BASO # 0.1 10^3/uL (0.0-0.2); BASO % 0.8 % (0.0-1.0); HEMATOCRIT 33.9 % (36.0-47.0); HEMOGLOBIN 11.2 g/dl (12.0-15.5); LYMPH # 1.7 10^3/uL (1.5-5.0); LYMPH % 19.9 % (24.0-44.0); MEAN CORPUSCULAR HEMOGLOBIN 29.6 pg (27.0-33.0); MEAN CORPUSCULAR VOLUME 89.7 fl (80.0-96.0); MONO # 0.8 10^3/uL (0.0-0.8); NEUTROPHILS % 69.8 % (36.0-66.0); PLATELET COUNT, AUTOMATED 247 10^3/uL (150-450); RED BLOOD COUNT 3.78 10^6/uL (4.00-5.40); WHITE BLOOD COUNT 8.6 10^3/uL (4.0-10.0)
[2022-04-15 16:09] LABS: ALBUMIN 3.3 GM/DL (3.2-5.2); ALT/SGPT 19 U/L (12-78); BILIRUBIN,TOTAL 0.1 MG/DL (0.2-1.0); BLOOD UREA NITROGEN 12 MG/DL (7-18); C REACTIVE PROTEIN QUANTITATIV 4.47 MG/DL (0.00-0.30); CALCIUM LEVEL 8.5 MG/DL (8.8-10.2); CARBON DIOXIDE LEVEL 26 MEQ/L (21-32); CHLORIDE LEVEL 108 MEQ/L (98-107); CREATININE FOR GFR 0.66 MG/DL (0.55-1.30); GLOMERULAR FILTRATION RATE > 60.0 (>39); GLUCOSE, FASTING 114 MG/DL (70-100); POTASSIUM SERUM 3.6 MEQ/L (3.5-5.1); SODIUM LEVEL 139 MEQ/L (136-145); TOTAL PROTEIN 6.1 GM/DL (6.4-8.2)
== END ==
LOC: M PLALAB 13:42
PROVIDERS: ATTEND Physician Assistant
DX: R05.1 Acute cough (principal); R53.81 Other malaise

== ENCOUNTER → 2022-05-27 | Outpatient (CLI) | payer MEDICARE ==
[~2022-05-27] MED LIST changes: +ALBU6.7H6 INH; -PROV108A INH
== END ==
LOC: M RAD 09:11
PROVIDERS: ATTEND Internal Medicine Pulmonary Disease
DX: Z12.2 Encounter for screening for malignant neoplasm of respiratory organs (principal); F17.218 Nicotine dependence, cigarettes, with other nicotine-induced disorders; R91.8 Other nonspecific abnormal finding of lung field

== ENCOUNTER → 2022-06-04 | Outpatient (CLI) | payer MEDICARE ==
[2022-06-04 07:01] LABS: BASO # 0.1 10^3/uL (0.0-0.2); BASO % 1.1 % (0.0-1.0); HEMATOCRIT 38.2 % (36.0-47.0); HEMOGLOBIN 12.2 g/dl (12.0-15.5); LYMPH # 2.1 10^3/uL (1.5-5.0); LYMPH % 28.6 % (24.0-44.0); MEAN CORPUSCULAR HEMOGLOBIN 29.1 pg (27.0-33.0); MEAN CORPUSCULAR HGB CONC 31.9 g/dl (32.0-36.5); MEAN CORPUSCULAR VOLUME 91.2 fl (80.0-96.0); MONO # 0.7 10^3/uL (0.0-0.8); MONO % 9.4 % (2.0-8.0); NEUTROPHILS # 4.5 10^3/uL (1.5-8.5); NEUTROPHILS % 60.6 % (36.0-66.0); PLATELET COUNT, AUTOMATED 225 10^3/uL (150-450); RED BLOOD COUNT 4.19 10^6/uL (4.00-5.40); WHITE BLOOD COUNT 7.4 10^3/uL (4.0-10.0)
[2022-06-04 07:14] LABS: HEMOGLOBIN A1c 5.4 %
[2022-06-04 07:41] LABS: CHOLESTEROL RISK RATIO 2.796 (<5); THYROID STIMULATING HORMONE 2.54 uIU/ML (0.358-3.740)
[2022-06-05 08:11] LABS: APOLIPOPROTEIN B/A-1 RATIO 0.5 ratio (0.0-0.6); H PYLORI SERUM QUANT IgG ABY 0.12 (0.00-0.79)
== END ==
LOC: M LAB 06:17
PROVIDERS: ATTEND Family Medicine
DX: D50.9 Iron deficiency anemia, unspecified (principal); R73.01 Impaired fasting glucose; E78.2 Mixed hyperlipidemia

== ENCOUNTER → 2022-09-09 | Outpatient (REF) | payer MEDICARE ==
[~2022-09-09] MED LIST changes: +DIPH-435 PO; -DIPH25CA32 PO
== END ==
LOC: M SFHCPLAZ 12:51
PROVIDERS: ATTEND Physician Assistant
DX: R05.1 Acute cough (principal)

== ENCOUNTER → 2022-10-04 | Outpatient (CLI) | payer MEDICARE ==
[2022-10-04 07:30] LABS: HEMOGLOBIN A1c 5.1 % (4.0-6.0)
[2022-10-04 07:37] LABS: BASO # 0.1 10^3/uL (0.0-0.2); BASO % 0.7 % (0.0-1.0); EOS # 0.2 10^3/uL (0.0-0.5); EOS % 2.5 % (0.0-3.0); HEMATOCRIT 36.5 % (36.0-47.0); HEMOGLOBIN 11.6 g/dl (12.0-15.5); LYMPH # 1.6 10^3/uL (1.5-5.0); LYMPH % 22.6 % (24.0-44.0); MEAN CORPUSCULAR HEMOGLOBIN 29.5 pg (27.0-33.0); MEAN CORPUSCULAR HGB CONC 31.8 g/dl (32.0-36.5); MEAN CORPUSCULAR VOLUME 92.9 fl (80.0-96.0); MONO # 0.7 10^3/uL (0.0-0.8); MONO % 9.8 % (2.0-8.0); NEUTROPHILS # 4.6 10^3/uL (1.5-8.5); NEUTROPHILS % 64.1 % (36.0-66.0); PLATELET COUNT, AUTOMATED 220 10^3/uL (150-450); RED BLOOD COUNT 3.93 10^6/uL (4.00-5.40); WHITE BLOOD COUNT 7.1 10^3/uL (4.0-10.0)
[2022-10-04 07:53] LABS: ALBUMIN 3.3 G/DL (3.2-5.2); ALKALINE PHOSPHATASE 64 U/L (46-116); ALT/SGPT 15 U/L (7.0-40); AST/SGOT < 8 U/L (<34); BILIRUBIN,TOTAL 0.3 MG/DL (0.3-1.2); BLOOD UREA NITROGEN 13 MG/DL (9-23); CALCIUM LEVEL 8.1 MG/DL (8.3-10.6); CARBON DIOXIDE LEVEL 29 MMOL/L (20-31); CHLORIDE LEVEL 109 MMOL/L (98-107); CREATININE FOR GFR 0.71 MG/DL (0.55-1.30); GLOMERULAR FILTRATION RATE > 60.0 (>39); GLUCOSE, FASTING 78 MG/DL (74-106); POTASSIUM SERUM 4.2 MMOL/L (3.5-5.1); SODIUM LEVEL 143 MMOL/L (136-145)
[2022-10-04 07:56] LABS: FERRITIN 46.4 NG/ML (7.3-270.7)
== END ==
LOC: M LAB 06:11
PROVIDERS: ATTEND Family Medicine
DX: D50.9 Iron deficiency anemia, unspecified (principal); E53.8 Deficiency of other specified B group vitamins; R73.01 Impaired fasting glucose

== ENCOUNTER → 2022-12-29 | Outpatient (REF) | payer MEDICARE ==
[~2022-12-29] MED LIST changes: +FLUT50SP17; -FLUTISP
== END ==
LOC: M SFHCPLAZ 13:05
PROVIDERS: ATTEND Physician Assistant
DX: R09.81 Nasal congestion (principal)

== ENCOUNTER → 2023-01-28 | Outpatient (CLI) | payer MEDICARE ==
[~2023-01-28] MED LIST changes: +ERGO500029 PO; +HYDR-3363 PO; +IPRA2IN NEB; +LEVOTAB10 PO; +MECL-86 PO
== END ==
LOC: M PLAIMG 10:25
PROVIDERS: ATTEND Family Medicine
DX: N28.89 Other specified disorders of kidney and ureter (principal)

== ENCOUNTER → 2023-01-28 | Outpatient (CLI) | payer MEDICARE ==
[~2023-01-28] MED LIST changes: +FAMO20TA PO
== END ==
LOC: M PLAIMG 12:59
PROVIDERS: ATTEND Family Medicine
DX: M41.34 Thoracogenic scoliosis, thoracic region (principal); M51.34 Other intervertebral disc degeneration, thoracic region

== ENCOUNTER → 2023-01-31 | Outpatient (REF) | payer MEDICARE | LOC: M SFHCPLAZ 09:15 | PROVIDERS: ATTEND Family Medicine | DX: R10.9 Unspecified abdominal pain (principal); Z53.9 Procedure and treatment not carried out, unspecified reason ==

== ENCOUNTER 2023-02-02 09:21 | Inpatient (IN) | payer MEDICARE, OTHER ==
[~2023-02-02] VITALS: Ht 154.9 cm; Wt 57.0 kg
[~2023-02-02 09:21] MED LIST changes: -ERGO500029 PO; -FAMO20TA PO; -HYDR-3363 PO; -IPRA2IN NEB; -LEVOTAB10 PO; -MECL-86 PO
[2023-02-02] MEDS ORDERED: predniSONE 20 MG TAB PO ONE (10:00)
[2023-02-02] MEDS ORDERED: IPRATROPIUM 0.5MG/ALBUTEROL 2.5MG INH SOL UD 3ML (DUONEB) NEB ONE (10:15)
[2023-02-02 10:49] LABS: BASO # 0.1 10^3/uL (0.0-0.2); BASO % 0.7 % (0.0-1.0); HEMATOCRIT 36.7 % (36.0-47.0); HEMOGLOBIN 11.9 g/dl (12.0-15.5); LYMPH # 1.5 10^3/uL (1.5-5.0); MEAN CORPUSCULAR HEMOGLOBIN 29.6 pg (27.0-33.0); MEAN CORPUSCULAR HGB CONC 32.4 g/dl (32.0-36.5); MEAN CORPUSCULAR VOLUME 91.3 fl (80.0-96.0); MONO # 0.9 10^3/uL (0.0-0.8); MONO % 8.4 % (2.0-8.0); NEUTROPHILS # 7.8 10^3/uL (1.5-8.5); NEUTROPHILS % 75.5 % (36.0-66.0); PLATELET COUNT, AUTOMATED 262 10^3/uL (150-450); RED BLOOD COUNT 4.02 10^6/uL (4.00-5.40); WHITE BLOOD COUNT 10.3 10^3/uL (4.0-10.0)
[2023-02-02 11:16] LABS: BLOOD UREA NITROGEN 11 MG/DL (9-23); CARBON DIOXIDE LEVEL 27 MMOL/L (20-31); CHLORIDE LEVEL 105 MMOL/L (98-107); CREATININE FOR GFR 0.71 MG/DL (0.55-1.30); GLOMERULAR FILTRATION RATE > 60.0 (>39); GLUCOSE, FASTING 86 MG/DL (74-106); POTASSIUM SERUM 4.1 MMOL/L (3.5-5.1); SODIUM LEVEL 137 MMOL/L (136-145)
[2023-02-02] MEDS ORDERED: IPRA2IN NEB (11:57)
[2023-02-02] MEDS ORDERED: LEVOTAB10 PO (11:57)
[2023-02-02] MEDS ORDERED: COMBAER6 INH (11:57)
[2023-02-02] MEDS ORDERED: ALBU2.5V10 INH (11:57)
[2023-02-02] MEDS ORDERED: MECL-86 PO (11:57)
[2023-02-02] MEDS ORDERED: HYDR-3363 PO (11:57)
[2023-02-02] MEDS ORDERED: ERGO500029 PO (11:58)
[2023-02-02] MEDS ORDERED: GENTAMICIN 120 MG in D5W 50 ML IV ONE (12:00)
[2023-02-02] MEDS ORDERED: HOME MED LIST COMPLETE! XX SCH (12:00)
[2023-02-02] MEDS: DOCUSATE SODIUM 100MG CAPSULE PO SCH ×2 (14:00→21:00)
[2023-02-02] MEDS ORDERED: diphenhydrAMINE 25MG CAP PO PRN (14:10)
[2023-02-02 14:55] VITALS: BP 134/87; TEMP 98.1; O2SAT 98
[2023-02-02] MEDS: CitaloPRAM (CeleXA) 20 MG TAB PO SCH (15:26)
[2023-02-02] MEDS: IPRATROPIUM 0.5MG/ALBUTEROL 2.5MG INH SOL UD 3ML (DUONEB) NEB PRN (16:39)
[2023-02-02] MEDS: FLUTICASONE PROP 0.05% NASAL SPRAY 16 GM (FLONASE) SCH (16:45)
[2023-02-02] MEDS: SYMBICORT 160/4.5MCG INHALER 6GM INH SCH (20:48)
[2023-02-02 21:00] VITALS: BP 114/53; TEMP 97.5; O2SAT 95
[2023-02-02] MEDS ORDERED: ENOXAPARIN 40MG/0.4ML SYRINGE (J1650 PER 10MG) SC SCH (21:00)
[2023-02-02] MEDS ORDERED: clonazePAM 1 MG TAB PO SCH (21:00)
[2023-02-02] MEDS ORDERED: traZODone 50 MG TAB PO SCH (21:00)
[2023-02-02] MEDS: FAMOTIDINE 20 MG TAB PO SCH ×2 (21:00→23:58)
[2023-02-02 21:20] VITALS: O2SAT 95
[2023-02-02] MEDS: GENTAMICIN 80 MG in IV 1 EA IV SCH (23:16)
[2023-02-03 02:02] VITALS: O2SAT 96
[2023-02-03 05:40] VITALS: BP 139/53; TEMP 97.3; O2SAT 95
[2023-02-03] MEDS: SYMBICORT 160/4.5MCG INHALER 6GM INH SCH (07:41)
[2023-02-03] MEDS: IPRATROPIUM 0.5MG/ALBUTEROL 2.5MG INH SOL UD 3ML (DUONEB) NEB PRN ×2 (07:41→13:25)
[2023-02-03 07:48] LABS: BASO % 0.4 % (0.0-1.0); EOS # 0.2 10^3/uL (0.0-0.5); EOS % 2.4 % (0.0-3.0); HEMATOCRIT 33.9 % (36.0-47.0); HEMOGLOBIN 10.9 g/dl (12.0-15.5); LYMPH # 2.6 10^3/uL (1.5-5.0); LYMPH % 26.3 % (24.0-44.0); MEAN CORPUSCULAR HEMOGLOBIN 29.1 pg (27.0-33.0); MEAN CORPUSCULAR HGB CONC 32.2 g/dl (32.0-36.5); MEAN CORPUSCULAR VOLUME 90.6 fl (80.0-96.0); MONO # 1.1 10^3/uL (0.0-0.8); MONO % 10.8 % (2.0-8.0); NEUTROPHILS # 5.8 10^3/uL (1.5-8.5); NEUTROPHILS % 59.8 % (36.0-66.0); PLATELET COUNT, AUTOMATED 243 10^3/uL (150-450); RED BLOOD COUNT 3.74 10^6/uL (4.00-5.40); WHITE BLOOD COUNT 9.7 10^3/uL (4.0-10.0)
[2023-02-03 08:18] LABS: BLOOD UREA NITROGEN 14 MG/DL (9-23); CALCIUM LEVEL 7.9 MG/DL (8.3-10.6); CARBON DIOXIDE LEVEL 29 MMOL/L (20-31); CHLORIDE LEVEL 108 MMOL/L (98-107); CREATININE FOR GFR 0.71 MG/DL (0.55-1.30); GLOMERULAR FILTRATION RATE > 60.0 (>39); GLUCOSE, FASTING 65 MG/DL (74-106); POTASSIUM SERUM 3.9 MMOL/L (3.5-5.1); SODIUM LEVEL 140 MMOL/L (136-145)
[2023-02-03] MEDS: FLUTICASONE PROP 0.05% NASAL SPRAY 16 GM (FLONASE) SCH (08:28)
[2023-02-03] MEDS: DOCUSATE SODIUM 100MG CAPSULE PO SCH (08:28)
[2023-02-03] MEDS: CitaloPRAM (CeleXA) 20 MG TAB PO SCH (08:28)
[2023-02-03] MEDS: FAMOTIDINE 20 MG TAB PO SCH (08:28)
[2023-02-03] MEDS ORDERED: SIMVASTATIN 20 MG TAB PO SCH (09:00)
[2023-02-03] MEDS ORDERED: predniSONE 20 MG TAB PO SCH (09:00)
[2023-02-03] MEDS ORDERED: OMEPRAZOLE 20MG CAP PO SCH (09:00)
[2023-02-03] MEDS: GENTAMICIN 80 MG in IV 1 EA IV SCH (13:10)
[2023-02-03 14:00] VITALS: BP 119/56; TEMP 97.9; O2SAT 93
[2023-02-03] MEDS ORDERED: PRED20TA PO (17:18)
[2023-02-03] MEDS ORDERED: FAMO20TA PO (17:18)
== END 2023-02-03 18:13 | disposition home or self-care (01) | DRG 607 ==
LOC: EDBD 09:21 → M ED 09:21 → M ED INP 13:40 → M MSPAV 15:14
PROVIDERS: ADMIT Internal Medicine Nephrology; ATTEND Internal Medicine Nephrology
DX: L50.0 Allergic urticaria (principal); J96.11 Chronic respiratory failure with hypoxia; J44.9 Chronic obstructive pulmonary disease, unspecified; K21.9 Gastro-esophageal reflux disease without esophagitis; J45.909 Unspecified asthma, uncomplicated; J32.9 Chronic sinusitis, unspecified; F34.1 Dysthymic disorder; F41.0 Panic disorder [episodic paroxysmal anxiety]; G47.00 Insomnia, unspecified; T36.8X5A Adverse effect of other systemic antibiotics, initial encounter; F50.81 Binge eating disorder; I10 Essential (primary) hypertension; E78.5 Hyperlipidemia, unspecified; M81.0 Age-related osteoporosis without current pathological fracture; E53.8 Deficiency of other specified B group vitamins; M18.12 Unilateral primary osteoarthritis of first carpometacarpal joint, left hand; K44.9 Diaphragmatic hernia without obstruction or gangrene; G89.29 Other chronic pain; M54.9 Dorsalgia, unspecified; R82.71 Bacteriuria; F17.200 Nicotine dependence, unspecified, uncomplicated; M41.84 Other forms of scoliosis, thoracic region; Z98.41 Cataract extraction status, right eye; Z98.42 Cataract extraction status, left eye; Z99.81 Dependence on supplemental oxygen; Z85.118 Personal history of other malignant neoplasm of bronchus and lung; Z90.2 Acquired absence of lung [part of]; Z79.899 Other long term (current) drug therapy; Z80.0 Family history of malignant neoplasm of digestive organs; Z90.49 Acquired absence of other specified parts of digestive tract; Z88.1 Allergy status to other antibiotic agents; Z88.2 Allergy status to sulfonamides; Z88.8 Allergy status to other drugs, medicaments and biological substances; Z88.5 Allergy status to narcotic agent

== ENCOUNTER → 2023-02-10 | Outpatient (CLI) | payer MEDICARE ==
[~2023-02-10] MED LIST changes: +ERGO500029 PO; +FAMO20TA PO; +HYDR-3363 PO; +IPRA2IN NEB; +LEVOTAB10 PO; +MECL-86 PO
== END ==
LOC: M WHC 11:18
PROVIDERS: ATTEND Family Medicine
DX: Z12.31 Encounter for screening mammogram for malignant neoplasm of breast (principal); M81.0 Age-related osteoporosis without current pathological fracture; M85.89 Other specified disorders of bone density and structure, multiple sites

== ENCOUNTER → 2023-02-25 | Outpatient (REF) | payer MEDICARE ==
[2023-02-25 10:28] LABS: BASO # 0.1 10^3/uL (0.0-0.2); BASO % 0.7 % (0.0-1.0); EOS # 0.5 10^3/uL (0.0-0.5); EOS % 3.7 % (0.0-3.0); HEMOGLOBIN 13.5 g/dl (12.0-15.5); LYMPH # 3.6 10^3/uL (1.5-5.0); LYMPH % 28.7 % (24.0-44.0); MEAN CORPUSCULAR HEMOGLOBIN 29.2 pg (27.0-33.0); MEAN CORPUSCULAR HGB CONC 32.1 g/dl (32.0-36.5); MEAN CORPUSCULAR VOLUME 90.7 fl (80.0-96.0); MONO # 1.3 10^3/uL (0.0-0.8); MONO % 10.7 % (2.0-8.0); NEUTROPHILS # 6.9 10^3/uL (1.5-8.5); NEUTROPHILS % 54.8 % (36.0-66.0); PLATELET COUNT, AUTOMATED 290 10^3/uL (150-450); RED BLOOD COUNT 4.63 10^6/uL (4.00-5.40); WHITE BLOOD COUNT 12.6 10^3/uL (4.0-10.0)
[2023-02-25 10:58] LABS: ALBUMIN 3.7 G/DL (3.2-5.2); ALKALINE PHOSPHATASE 65 U/L (46-116); ALT/SGPT 19 U/L (7.0-40); AST/SGOT 12 U/L (<34); BILIRUBIN,TOTAL 0.6 MG/DL (0.3-1.2); BLOOD UREA NITROGEN 18 MG/DL (9-23); CALCIUM LEVEL 9.7 MG/DL (8.3-10.6); CARBON DIOXIDE LEVEL 30 MMOL/L (20-31); CHLORIDE LEVEL 99 MMOL/L (98-107); CREATININE FOR GFR 0.77 MG/DL (0.55-1.30); GLOMERULAR FILTRATION RATE > 60.0 (>39); GLUCOSE, FASTING 79 MG/DL (74-106); POTASSIUM SERUM 4.2 MMOL/L (3.5-5.1); PTH INTACT 83.2 PG/ML (18.5-88.0); SODIUM LEVEL 137 MMOL/L (136-145); TOTAL PROTEIN 6.5 G/DL (5.7-8.2)
[2023-02-25 10:59] LABS: FERRITIN 42.9 NG/ML (7.3-270.7)
[2023-02-25 11:00] LABS: VITAMIN B12 LEVEL 825 PG/ML (211-911)
[2023-02-25 11:05] LABS: TOTAL 25(OH) VITAMIN D 77.4 NG/ML (20.0-100.0)
[2023-02-28 11:08] LABS: D001-IgE D pteronyssinus <0.10 kU/L (Class 0); E001-IgE Cat Epith/Dander < 0.10 kU/L (Class 0); E005-IgE Dog Dander < 0.10 kU/L (Class 0); G002-IgE Bermuda Grass < 0.10 kU/L (Class 0); M001-IgE Penicillium chrysogen < 0.10 kU/L (Class 0); M002 IgE Cladosporium herbaru < 0.10 kU/L (Class 0); M003 IgE Aspergillus fumigatu < 0.10 kU/L (Class 0); M006-IgE Alternaria alternata < 0.10 kU/L (Class 0); T001-IgE Maple/Box Elder < 0.10 kU/L (Class 0); T003-IgE Common Silver Birch < 0.10 kU/L (Class 0); T006-IgE Cedar, Mountain < 0.10 kU/L (Class 0); T007-IgE Oak, White < 0.10 kU/L (Class 0); T008-IgE Elm, American < 0.10 kU/L (Class 0); T015-IgE Ash, White < 0.10 kU/L (Class 0); T070-IgE White Mulberry < 0.10 kU/L (Class 0); W001-IgE Ragweed, Short < 0.10 kU/L (Class 0); W018-IgE Sheep Sorrel < 0.10 kU/L (Class 0)
== END ==
LOC: M SFHCPLAZ 09:57
PROVIDERS: ATTEND Family Medicine
DX: E55.9 Vitamin D deficiency, unspecified (principal); D50.9 Iron deficiency anemia, unspecified; J30.89 Other allergic rhinitis; E53.8 Deficiency of other specified B group vitamins; Z79.899 Other long term (current) drug therapy

== ENCOUNTER 2023-03-24 15:34 | Outpatient (CLI) | payer MEDICARE ==
[~2023-03-24] VITALS: Ht 154.9 cm; Wt 57.0 kg
[2023-03-24] MEDS ORDERED: ZOLEDRONIC ACID 5 MG in IV 1 EA IV ONE (16:00)
[2023-03-24 16:29] VITALS: BP 135/64; O2SAT 95
[2023-03-24 16:55] VITALS: BP 130/60; O2SAT 96
== END 2023-03-24 17:00 | disposition home or self-care (01) ==
LOC: M INFU 15:34
PROVIDERS: ATTEND Family Medicine
DX: M81.0 Age-related osteoporosis without current pathological fracture (principal); Z88.2 Allergy status to sulfonamides; Z88.0 Allergy status to penicillin; Z88.1 Allergy status to other antibiotic agents; Z88.5 Allergy status to narcotic agent; Z88.8 Allergy status to other drugs, medicaments and biological substances
CPT/HCPCS: 96365; J3489

== ENCOUNTER → 2023-05-03 | Outpatient (CLI) | payer MEDICARE ==
[2023-05-03 06:39] LABS: BASO # 0.1 10^3/uL (0.0-0.2); BASO % 0.9 % (0.0-1.0); EOS # 0.1 10^3/uL (0.0-0.5); EOS % 1.4 % (0.0-3.0); HEMATOCRIT 37.7 % (36.0-47.0); LYMPH # 2.4 10^3/uL (1.5-5.0); LYMPH % 29.1 % (24.0-44.0); MEAN CORPUSCULAR HEMOGLOBIN 29.1 pg (27.0-33.0); MEAN CORPUSCULAR HGB CONC 31.8 g/dl (32.0-36.5); MEAN CORPUSCULAR VOLUME 91.5 fl (80.0-96.0); MONO # 0.9 10^3/uL (0.0-0.8); MONO % 10.5 % (2.0-8.0); NEUTROPHILS # 4.7 10^3/uL (1.5-8.5); NEUTROPHILS % 57.7 % (36.0-66.0); PLATELET COUNT, AUTOMATED 224 10^3/uL (150-450); RED BLOOD COUNT 4.12 10^6/uL (4.00-5.40); WHITE BLOOD COUNT 8.1 10^3/uL (4.0-10.0)
[2023-05-03 07:17] LABS: ALBUMIN 3.4 G/DL (3.2-5.2); ALKALINE PHOSPHATASE 66 U/L (46-116); ALT/SGPT 13 U/L (7.0-40); AST/SGOT 10 U/L (<34); BILIRUBIN,TOTAL 0.3 MG/DL (0.3-1.2); BLOOD UREA NITROGEN 16 MG/DL (9-23); CALCIUM LEVEL 8.8 MG/DL (8.3-10.6); CARBON DIOXIDE LEVEL 30 MMOL/L (20-31); CHLORIDE LEVEL 104 MMOL/L (98-107); CREATININE FOR GFR 0.72 MG/DL (0.55-1.30); GLOMERULAR FILTRATION RATE > 60.0 (>39); GLUCOSE, FASTING 79 MG/DL (74-106); SODIUM LEVEL 140 MMOL/L (136-145); TOTAL PROTEIN 5.9 G/DL (5.7-8.2)
[2023-05-03 07:19] LABS: FERRITIN 33.5 NG/ML (7.3-270.7); PTH INTACT 50.3 PG/ML (18.5-88.0); TOTAL 25(OH) VITAMIN D 73.6 NG/ML (20.0-100.0)
[2023-05-03 07:20] LABS: VITAMIN B12 LEVEL 713 PG/ML (211-911)
== END ==
LOC: M LAB 06:12
PROVIDERS: ATTEND Family Medicine
DX: E55.9 Vitamin D deficiency, unspecified (principal); D50.9 Iron deficiency anemia, unspecified; E53.8 Deficiency of other specified B group vitamins

== ENCOUNTER → 2023-05-09 | Outpatient (REF) | payer MEDICARE | LOC: M SFHCPLAZ 10:14 | PROVIDERS: ATTEND Family Medicine | DX: E78.2 Mixed hyperlipidemia (principal); E53.8 Deficiency of other specified B group vitamins ==

== ENCOUNTER → 2023-06-16 | Outpatient (CLI) | payer MEDICARE ==
[~2023-06-16] MED LIST changes: -CEFD300C41; +CEFD300C42
== END ==
LOC: M RAD 08:22
PROVIDERS: ATTEND Internal Medicine Pulmonary Disease
DX: Z12.2 Encounter for screening for malignant neoplasm of respiratory organs (principal); F17.218 Nicotine dependence, cigarettes, with other nicotine-induced disorders

== ENCOUNTER → 2023-07-29 | Outpatient (CLI) | payer MEDICARE ==
[~2023-07-29] MED LIST changes: +CEFD1CAP9; -CEFD300C42; -FLUT50SP17; +FLUTISP
== END ==
LOC: M PLAIMG 16:19
PROVIDERS: ATTEND Nurse Practitioner Family
DX: S22.31XA Fracture of one rib, right side, initial encounter for closed fracture (principal); X58.XXXA Exposure to other specified factors, initial encounter; Y92.9 Unspecified place or not applicable; Y93.9 Activity, unspecified; Y99.9 Unspecified external cause status

== ENCOUNTER → 2023-10-11 | Outpatient (CLI) | payer MEDICARE ==
[~2023-10-11] MED LIST changes: +CALC-423 PO; -CALCCHW18 PO; -KLON0.5T; +KLON0.5T8
[2023-10-11 06:47] LABS: BASO # 0.1 10^3/uL (0.0-0.2); HEMATOCRIT 38.3 % (36.0-47.0); HEMOGLOBIN 12.7 g/dl (12.0-15.5); LYMPH # 2.1 10^3/uL (1.5-5.0); LYMPH % 25.1 % (24.0-44.0); MEAN CORPUSCULAR HEMOGLOBIN 29.5 pg (27.0-33.0); MEAN CORPUSCULAR HGB CONC 33.2 g/dl (32.0-36.5); MEAN CORPUSCULAR VOLUME 89.1 fl (80.0-96.0); MONO # 0.9 10^3/uL (0.0-0.8); MONO % 10.4 % (2.0-8.0); NEUTROPHILS # 5.2 10^3/uL (1.5-8.5); NEUTROPHILS % 63.3 % (36.0-66.0); PLATELET COUNT, AUTOMATED 218 10^3/uL (150-450); WHITE BLOOD COUNT 8.2 10^3/uL (4.0-10.0)
[2023-10-11 07:00] LABS: HEMOGLOBIN A1c 5.3 % (4.0-6.0)
[2023-10-11 07:06] LABS: ALBUMIN 3.3 G/DL (3.2-5.2); ALKALINE PHOSPHATASE 70 U/L (46-116); ALT/SGPT 15 U/L (7.0-40); AST/SGOT 17 U/L (<34); BILIRUBIN,TOTAL 0.5 MG/DL (0.3-1.2); BLOOD UREA NITROGEN 15 MG/DL (9-23); CALCIUM LEVEL 8.3 MG/DL (8.3-10.6); CARBON DIOXIDE LEVEL 30 MMOL/L (20-31); CHLORIDE LEVEL 107 MMOL/L (98-107); CHOLESTEROL LEVEL 155 MG/DL (<200); CHOLESTEROL RISK RATIO 2.57 (<5); CREATININE FOR GFR 0.91 MG/DL (0.55-1.30); GLOMERULAR FILTRATION RATE > 60.0 (>39); GLUCOSE, FASTING 90 MG/DL (74-106); HDL CHOLESTEROL 60.1 MG/DL (>40); LDL CHOLESTEROL 83.1 MG/DL (<100); NON-HDL-C 94.9 MG/DL; POTASSIUM SERUM 3.9 MMOL/L (3.5-5.1); SODIUM LEVEL 138 MMOL/L (136-145); TRIGLYCERIDES LEVEL 59 MG/DL (<150)
[2023-10-11 07:08] LABS: FERRITIN 47.2 NG/ML (7.3-270.7); THYROID STIMULATING HORMONE 1.687 uIU/ML (0.55-4.78)
[2023-10-11 07:09] LABS: FREE T4 0.99 NG/DL (0.89-1.76)
== END ==
LOC: M LAB 06:06
PROVIDERS: ATTEND Family Medicine
DX: E53.8 Deficiency of other specified B group vitamins (principal); E78.2 Mixed hyperlipidemia; Z79.899 Other long term (current) drug therapy; Z86.39 Personal history of other endocrine, nutritional and metabolic disease; J44.9 Chronic obstructive pulmonary disease, unspecified

== ENCOUNTER → 2023-10-17 | Outpatient (REF) | payer MEDICARE | LOC: M SFHCPLAZ 12:17 | PROVIDERS: ATTEND Family Medicine | DX: D50.9 Iron deficiency anemia, unspecified (principal); E55.9 Vitamin D deficiency, unspecified ==

== ENCOUNTER → 2023-11-11 | Outpatient (REF) | payer MEDICARE | LOC: M SFHCPLAZ 12:35 | PROVIDERS: ATTEND Physician Assistant | DX: R09.89 Other specified symptoms and signs involving the circulatory and respiratory systems (principal) ==

== ENCOUNTER 2024-01-05 14:21 | Emergency (ER) | payer MEDICARE ==
[~2024-01-05] VITALS: Ht 149.9 cm; Wt 52.5 kg
[2024-01-05 14:22] VITALS: BP 145/82; TEMP 96.2; O2SAT 96
[2024-01-06] MEDS ORDERED: MELO15TA28 (09:03)
== END 2024-01-05 16:32 | disposition left against medical advice (07) ==
LOC: M ED 14:21
DX: Z53.21 Procedure and treatment not carried out due to patient leaving prior to being seen by health care provider (principal)

== ENCOUNTER 2024-01-06 08:37 | Emergency (ER) | payer MEDICARE ==
[~2024-01-06] VITALS: Ht 149.9 cm; Wt 52.7 kg
[2024-01-06] MEDS ORDERED: MELO15TA28 (09:03)
[2024-01-06 11:49] VITALS: BP 132/60; TEMP 97.7; O2SAT 94
== END 2024-01-06 11:50 | disposition home or self-care (01) ==
LOC: M ED 08:37
DX: M79.662 Pain in left lower leg (principal); I87.2 Venous insufficiency (chronic) (peripheral); E78.00 Pure hypercholesterolemia, unspecified; I10 Essential (primary) hypertension; J44.9 Chronic obstructive pulmonary disease, unspecified; Z87.01 Personal history of pneumonia (recurrent); Z85.118 Personal history of other malignant neoplasm of bronchus and lung; K21.9 Gastro-esophageal reflux disease without esophagitis; K57.92 Diverticulitis of intestine, part unspecified, without perforation or abscess without bleeding; E55.9 Vitamin D deficiency, unspecified; F41.9 Anxiety disorder, unspecified; F32.A Depression, unspecified; Z79.899 Other long term (current) drug therapy; Z88.0 Allergy status to penicillin; Z88.2 Allergy status to sulfonamides; Z88.1 Allergy status to other antibiotic agents; Z88.5 Allergy status to narcotic agent; Z88.8 Allergy status to other drugs, medicaments and biological substances

== ENCOUNTER → 2024-01-20 | Outpatient (CLI) | payer MEDICARE ==
[~2024-01-20] MED LIST changes: +MELO15TA28; +ONDA-282 PO; -ONDA4TAB6 PO
[2024-01-20 17:13] LABS: BASO # 0.1 10^3/uL (0.0-0.2); BASO % 0.9 % (0.0-1.0); EOS % 0.4 % (0.0-3.0); HEMATOCRIT 35.9 % (36.0-47.0); HEMOGLOBIN 11.8 g/dl (12.0-15.5); LYMPH # 2.6 10^3/uL (1.5-5.0); LYMPH % 28.5 % (24.0-44.0); MEAN CORPUSCULAR HGB CONC 32.9 g/dl (32.0-36.5); MEAN CORPUSCULAR VOLUME 91.3 fl (80.0-96.0); MONO # 0.8 10^3/uL (0.0-0.8); MONO % 8.6 % (2.0-8.0); NEUTROPHILS # 5.6 10^3/uL (1.5-8.5); NEUTROPHILS % 61.4 % (36.0-66.0); PLATELET COUNT, AUTOMATED 214 10^3/uL (150-450); RED BLOOD COUNT 3.93 10^6/uL (4.00-5.40); WHITE BLOOD COUNT 9.2 10^3/uL (4.0-10.0)
[2024-01-20 17:23] LABS: INR 1.13; PROTHROMBIN TIME 14.1 SECONDS (12.5-14.5)
[2024-01-20 17:33] LABS: ALBUMIN 3.5 G/DL (3.2-5.2); ALKALINE PHOSPHATASE 71 U/L (46-116); ALT/SGPT 18 U/L (7.0-40); AST/SGOT 14 U/L (<34); BILIRUBIN,TOTAL 0.2 MG/DL (0.3-1.2); BLOOD UREA NITROGEN 15 MG/DL (9-23); CALCIUM LEVEL 8.2 MG/DL (8.3-10.6); CARBON DIOXIDE LEVEL 29 MMOL/L (20-31); CHLORIDE LEVEL 103 MMOL/L (98-107); CREATININE FOR GFR 0.77 MG/DL (0.55-1.30); GLOMERULAR FILTRATION RATE > 60.0 (>39); GLUCOSE, FASTING 90 MG/DL (74-106); POTASSIUM SERUM 4.2 MMOL/L (3.5-5.1); SODIUM LEVEL 136 MMOL/L (136-145); TOTAL PROTEIN 6.2 G/DL (5.7-8.2)
== END ==
LOC: M PLAIMG 14:51
PROVIDERS: ATTEND Physician Assistant
DX: M79.89 Other specified soft tissue disorders (principal); R58 Hemorrhage, not elsewhere classified

== ENCOUNTER → 2024-02-07 | Outpatient (CLI) | payer MEDICARE ==
[2024-02-07 14:05] LABS: BASO # 0.1 10^3/uL (0.0-0.2); EOS # 0.1 10^3/uL (0.0-0.5); EOS % 0.6 % (0.0-3.0); HEMATOCRIT 37.5 % (36.0-47.0); HEMOGLOBIN 12.1 g/dl (12.0-15.5); LYMPH # 1.6 10^3/uL (1.5-5.0); LYMPH % 20.1 % (24.0-44.0); MEAN CORPUSCULAR HEMOGLOBIN 29.6 pg (27.0-33.0); MEAN CORPUSCULAR HGB CONC 32.3 g/dl (32.0-36.5); MEAN CORPUSCULAR VOLUME 91.7 fl (80.0-96.0); MONO # 0.6 10^3/uL (0.0-0.8); NEUTROPHILS # 5.5 10^3/uL (1.5-8.5); PLATELET COUNT, AUTOMATED 212 10^3/uL (150-450); RED BLOOD COUNT 4.09 10^6/uL (4.00-5.40); WHITE BLOOD COUNT 7.9 10^3/uL (4.0-10.0)
[2024-02-07 14:10] LABS: ERYTHROCYTE SEDIMENTATION RATE 33 mm/hr (0-30)
[2024-02-07 14:35] LABS: ALBUMIN 3.6 G/DL (3.2-5.2); ALKALINE PHOSPHATASE 70 U/L (46-116); ALT/SGPT 18 U/L (7.0-40); AST/SGOT 15 U/L (<34); BILIRUBIN,TOTAL 0.2 MG/DL (0.3-1.2); BLOOD UREA NITROGEN 12 MG/DL (9-23); CALCIUM LEVEL 8.5 MG/DL (8.3-10.6); CARBON DIOXIDE LEVEL 30 MMOL/L (20-31); CHLORIDE LEVEL 106 MMOL/L (98-107); CREATININE FOR GFR 0.77 MG/DL (0.55-1.30); GLOMERULAR FILTRATION RATE > 60.0 (>39); GLUCOSE, FASTING 72 MG/DL (74-106); SODIUM LEVEL 140 MMOL/L (136-145); TOTAL PROTEIN 6.3 G/DL (5.7-8.2)
== END ==
LOC: M PLALAB 11:13
PROVIDERS: ATTEND Physician Assistant
DX: R51.9 Headache, unspecified (principal); H02.9 Unspecified disorder of eyelid; I67.1 Cerebral aneurysm, nonruptured

== ENCOUNTER → 2024-02-10 | Outpatient (CLI) | payer MEDICARE ==
[~2024-02-10] MED LIST changes: +PROHANCE 279.3MG/ML 5ML VIAL As Ordered ONE
== END ==
LOC: M RAD 16:19
PROVIDERS: ATTEND Physician Assistant
DX: I67.1 Cerebral aneurysm, nonruptured (principal); H02.9 Unspecified disorder of eyelid; R51.9 Headache, unspecified
CPT/HCPCS: 70544; 70553; A9576

== ENCOUNTER → 2024-02-13 | Outpatient (CLI) | payer MEDICARE ==
[~2024-02-13] MED LIST changes: -PROHANCE 279.3MG/ML 5ML VIAL As Ordered ONE
== END ==
LOC: M WHC 10:55
PROVIDERS: ATTEND Family Medicine
DX: Z12.31 Encounter for screening mammogram for malignant neoplasm of breast (principal)

== ENCOUNTER → 2024-02-15 | Outpatient (CLI) | payer MEDICARE | LOC: M PLAIMG 14:42 | PROVIDERS: ATTEND Family Medicine | DX: R07.81 Pleurodynia (principal); M41.86 Other forms of scoliosis, lumbar region; I51.7 Cardiomegaly ==

== ENCOUNTER → 2024-02-21 | Outpatient (CLI) | payer MEDICARE ==
[2024-02-21 10:42] LABS: BASO # 0.1 10^3/uL (0.0-0.2); BASO % 0.9 % (0.0-1.0); EOS # 0.1 10^3/uL (0.0-0.5); EOS % 0.9 % (0.0-3.0); HEMATOCRIT 35.9 % (36.0-47.0); HEMOGLOBIN 11.7 g/dl (12.0-15.5); LYMPH # 2.3 10^3/uL (1.5-5.0); LYMPH % 30.1 % (24.0-44.0); MEAN CORPUSCULAR HEMOGLOBIN 29.6 pg (27.0-33.0); MEAN CORPUSCULAR HGB CONC 32.6 g/dl (32.0-36.5); MEAN CORPUSCULAR VOLUME 90.9 fl (80.0-96.0); MONO # 0.7 10^3/uL (0.0-0.8); MONO % 9.6 % (2.0-8.0); NEUTROPHILS # 4.5 10^3/uL (1.5-8.5); NEUTROPHILS % 58.2 % (36.0-66.0); PLATELET COUNT, AUTOMATED 214 10^3/uL (150-450); RED BLOOD COUNT 3.95 10^6/uL (4.00-5.40); WHITE BLOOD COUNT 7.7 10^3/uL (4.0-10.0)
[2024-02-21 11:08] LABS: FERRITIN 28.6 NG/ML (7.3-270.7)
[2024-02-21 11:10] LABS: ALBUMIN 3.5 G/DL (3.2-5.2); ALKALINE PHOSPHATASE 73 U/L (46-116); ALT/SGPT 17 U/L (7.0-40); AST/SGOT 11 U/L (<34); BILIRUBIN,TOTAL 0.3 MG/DL (0.3-1.2); BLOOD UREA NITROGEN 14 MG/DL (9-23); CALCIUM LEVEL 9.1 MG/DL (8.3-10.6); CARBON DIOXIDE LEVEL 30 MMOL/L (20-31); CHLORIDE LEVEL 103 MMOL/L (98-107); CREATININE FOR GFR 0.81 MG/DL (0.55-1.30); GLOMERULAR FILTRATION RATE > 60.0 (>39); GLUCOSE, FASTING 84 MG/DL (74-106); MAGNESIUM LEVEL 1.9 MG/DL (1.8-2.4); POTASSIUM SERUM 4.1 MMOL/L (3.5-5.1); PTH INTACT 41.3 PG/ML (18.5-88.0); SODIUM LEVEL 138 MMOL/L (136-145); TOTAL PROTEIN 6.1 G/DL (5.7-8.2)
[2024-02-21 11:12] LABS: TOTAL 25(OH) VITAMIN D 100.5 NG/ML (20.0-100.0)
== END ==
LOC: M PLALAB 07:41
PROVIDERS: ATTEND Family Medicine
DX: D50.9 Iron deficiency anemia, unspecified (principal); E55.9 Vitamin D deficiency, unspecified; I50.32 Chronic diastolic (congestive) heart failure

== ENCOUNTER → 2024-03-06 | Outpatient (CLI) | payer MEDICARE ==
[~2024-03-06] MED LIST changes: +PROHANCE 279.3MG/ML 5ML VIAL ONE
== END ==
LOC: M PLAIMG 10:30
PROVIDERS: ATTEND Family Medicine
DX: N28.89 Other specified disorders of kidney and ureter (principal); D35.00 Benign neoplasm of unspecified adrenal gland
CPT/HCPCS: 74183; A9576

== ENCOUNTER → 2024-03-14 | Outpatient (CLI) | payer MEDICARE ==
[~2024-03-14] MED LIST changes: -PROHANCE 279.3MG/ML 5ML VIAL ONE
== END ==
LOC: M PLAIMG 07:21
PROVIDERS: ATTEND Family Medicine
DX: I50.32 Chronic diastolic (congestive) heart failure (principal); I36.1 Nonrheumatic tricuspid (valve) insufficiency

== ENCOUNTER 2024-03-21 08:20 | Outpatient (CLI) | payer MEDICARE ==
[~2024-03-21] VITALS: Ht 149.9 cm; Wt 52.3 kg
[~2024-03-21 08:20] MED LIST changes: +ALBUTEROL SULFATE 2.5MG/0.5ML INH NEB SOLN INH PRN; +EPINEPHrine INJ 1 MG/ML 1ML AMP IM PRN; +NS 1,000 ML IV SCH; +diphenhydrAMINE 50MG/ML VIAL IV PRN; +methylPREDNISolone 125MG 2ML VIAL IV PRN
[2024-03-21] MEDS: IRON SUCROSE 500 MG in NS 250 ML OVER 4 HRS IV ONE (09:09)
[2024-03-21 09:13] VITALS: BP 143/65; O2SAT 98
[2024-03-21 10:30] VITALS: BP 137/63; O2SAT 96
[2024-03-21 13:20] VITALS: BP 124/61; O2SAT 95
== END 2024-03-21 13:20 ==
LOC: M INFU 08:20
PROVIDERS: ATTEND Family Medicine
DX: D50.9 Iron deficiency anemia, unspecified (principal); Z88.0 Allergy status to penicillin; Z88.2 Allergy status to sulfonamides; Z88.1 Allergy status to other antibiotic agents; Z88.5 Allergy status to narcotic agent; Z88.8 Allergy status to other drugs, medicaments and biological substances
CPT/HCPCS: 96365; 96366; J1756

== ENCOUNTER → 2024-04-11 | Outpatient (CLI) | payer MEDICARE ==
[~2024-04-11] MED LIST changes: -ALBUTEROL SULFATE 2.5MG/0.5ML INH NEB SOLN INH PRN; -EPINEPHrine INJ 1 MG/ML 1ML AMP IM PRN; -NS 1,000 ML IV SCH; -diphenhydrAMINE 50MG/ML VIAL IV PRN; -methylPREDNISolone 125MG 2ML VIAL IV PRN
[2024-04-11 10:41] LABS: ALBUMIN 3.6 G/DL (3.2-5.2); ALKALINE PHOSPHATASE 75 U/L (46-116); ALT/SGPT 23 U/L (7.0-40); AST/SGOT 15 U/L (<34); BILIRUBIN,TOTAL 0.2 MG/DL (0.3-1.2); BLOOD UREA NITROGEN 19 MG/DL (9-23); CARBON DIOXIDE LEVEL 30 MMOL/L (20-31); CHLORIDE LEVEL 102 MMOL/L (98-107); CREATININE FOR GFR 0.78 MG/DL (0.55-1.30); GLOMERULAR FILTRATION RATE > 60.0 (>39); GLUCOSE, FASTING 93 MG/DL (74-106); POTASSIUM SERUM 4.1 MMOL/L (3.5-5.1); SODIUM LEVEL 135 MMOL/L (136-145); TOTAL PROTEIN 6.4 G/DL (5.7-8.2)
== END ==
LOC: M PLALAB 07:07
PROVIDERS: ATTEND Family Medicine
DX: M81.0 Age-related osteoporosis without current pathological fracture (principal)

== ENCOUNTER 2024-04-12 10:56 | Outpatient (CLI) | payer MEDICARE ==
[~2024-04-12] VITALS: Ht 149.9 cm; Wt 51.8 kg
[2024-04-12 11:35] VITALS: BP 149/65; O2SAT 98
[2024-04-12] MEDS: ZOLEDRONIC ACID 5 MG in IV 1 EA IV ONE (11:49)
[2024-04-12 12:25] VITALS: BP 128/65; O2SAT 97
== END 2024-04-12 12:25 ==
LOC: M INFU 10:56
PROVIDERS: ATTEND Family Medicine
DX: M81.0 Age-related osteoporosis without current pathological fracture (principal); Z88.0 Allergy status to penicillin; Z88.2 Allergy status to sulfonamides; Z88.1 Allergy status to other antibiotic agents; Z88.5 Allergy status to narcotic agent
CPT/HCPCS: 96413; J3489

== ENCOUNTER → 2024-05-03 | Outpatient (CLI) | payer MEDICARE | LOC: M PLALAB 15:49 | DX: M81.0 Age-related osteoporosis without current pathological fracture (principal) ==

== ENCOUNTER → 2024-05-12 | Outpatient (REF) | payer MEDICARE | LOC: M WUC 18:55 | PROVIDERS: ATTEND Student in an Organized Health Care Education/Training Program | DX: R30.0 Dysuria (principal) ==

== ENCOUNTER → 2024-05-15 | Outpatient (REF) | payer MEDICARE ==
[2024-05-15 17:59] LABS: APPEARANCE, URINE HAZY (CLEAR); BACTERIA, URINE AUTO NEGATIVE (NEGATIVE); BILIRUBIN, URINE AUTO NEGATIVE (NEGATIVE); BLOOD, URINE BLOOD 2+ (NEGATIVE); COLOR, URINE RED (YELLOW); GLUCOSE, URINE (UA) AUTO NEGATIVE (NEGATIVE); KETONE, URINE AUTO NEGATIVE (NEGATIVE); LEUKOCYTE ESTERASE, URINE AUTO NEGATIVE (NEGATIVE); NITRITE, URINE AUTO NEGATIVE (NEGATIVE); PROTEIN, URINE AUTO 2+ mg/dL (NEGATIVE); RBC, URINE AUTO TNTC /HPF (0-3); SPECIFIC GRAVITY URINE AUTO 1.009 (1.002-1.035); SQUAMOUS EPITHELIAL CELL UR AU 4 /HPF (0-6); UROBILINOGEN, URINE AUTO 0.2 mg/dL (0.0-2.0); WBC, URINE AUTO 0 /HPF (0-3)
== END ==
LOC: M SFHCPLAZ 13:16
PROVIDERS: ATTEND Family Medicine
DX: R31.0 Gross hematuria (principal)

== ENCOUNTER → 2024-05-15 | Outpatient (CLI) | payer MEDICARE ==
[2024-05-15 15:02] LABS: BASO % 0.3 % (0.0-1.0); HEMATOCRIT 36.8 % (36.0-47.0); HEMOGLOBIN 12.2 g/dl (12.0-15.5); LYMPH % 24.7 % (24.0-44.0); MEAN CORPUSCULAR HEMOGLOBIN 30.4 pg (27.0-33.0); MEAN CORPUSCULAR HGB CONC 33.2 g/dl (32.0-36.5); MEAN CORPUSCULAR VOLUME 91.8 fl (80.0-96.0); MONO # 1.2 10^3/uL (0.0-0.8); MONO % 9.4 % (2.0-8.0); NEUTROPHILS # 7.9 10^3/uL (1.5-8.5); NEUTROPHILS % 65.4 % (36.0-66.0); PLATELET COUNT, AUTOMATED 243 10^3/uL (150-450); RED BLOOD COUNT 4.01 10^6/uL (4.00-5.40); WHITE BLOOD COUNT 12.2 10^3/uL (4.0-10.0)
[2024-05-15 15:15] LABS: INR 1.1; PARTIAL THROMBOPLASTIN TIME 30.5 SECONDS (24.8-34.2); PROTHROMBIN TIME 13.9 SECONDS (12.5-14.5)
[2024-05-15 15:24] LABS: ALBUMIN 3.6 G/DL (3.2-5.2); ALKALINE PHOSPHATASE 75 U/L (46-116); ALT/SGPT 23 U/L (7.0-40); AST/SGOT 17 U/L (<34); BILIRUBIN,TOTAL 0.3 MG/DL (0.3-1.2); BLOOD UREA NITROGEN 14 MG/DL (9-23); CALCIUM LEVEL 8.6 MG/DL (8.3-10.6); CARBON DIOXIDE LEVEL 29 MMOL/L (20-31); CHLORIDE LEVEL 104 MMOL/L (98-107); CREATININE FOR GFR 0.76 MG/DL (0.55-1.30); GLOMERULAR FILTRATION RATE > 60.0 (>39); GLUCOSE, FASTING 79 MG/DL (74-106); POTASSIUM SERUM 3.6 MMOL/L (3.5-5.1); PTH INTACT 121.2 PG/ML (18.5-88.0); SODIUM LEVEL 136 MMOL/L (136-145); TOTAL PROTEIN 6.7 G/DL (5.7-8.2)
[2024-05-15 15:26] LABS: TOTAL 25(OH) VITAMIN D 71.4 NG/ML (20.0-100.0)
[2024-05-15 15:27] LABS: FERRITIN 135.7 NG/ML (7.3-270.7)
== END ==
LOC: M PLALAB 13:47
PROVIDERS: ATTEND Family Medicine
DX: M47.812 Spondylosis without myelopathy or radiculopathy, cervical region (principal); D50.9 Iron deficiency anemia, unspecified; E55.9 Vitamin D deficiency, unspecified; I50.32 Chronic diastolic (congestive) heart failure; R31.0 Gross hematuria

== ENCOUNTER → 2024-05-16 | Outpatient (CLI) | payer MEDICARE | LOC: M PLAIMG 08:10 | PROVIDERS: ATTEND Family Medicine | DX: M47.812 Spondylosis without myelopathy or radiculopathy, cervical region (principal); M85.88 Other specified disorders of bone density and structure, other site; M47.814 Spondylosis without myelopathy or radiculopathy, thoracic region ==

== ENCOUNTER → 2024-05-23 | Outpatient (REF) | payer MEDICARE ==
[2024-05-23 18:48] LABS: APPEARANCE, URINE MANUAL CLEAR (CLEAR); COLOR, URINE MANUAL YELLOW (YELLOW)
[2024-05-23 18:49] LABS: BILIRUBIN, URINE MANUAL NEGATIVE (NEGATIVE); BLOOD URINE MANUAL TRACE (NEGATIVE); GLUCOSE, URINE (UA) MANUAL NEGATIVE (NEGATIVE); KETONE, URINE MANUAL 1+ mg/dL (NEGATIVE); LEUKOCYTE ESTERASE, URINE MAN NEGATIVE (NEGATIVE); NITRITE, URINE MANUAL NEGATIVE (NEGATIVE); PROTEIN, URINE MANUAL NEGATIVE (NEGATIVE); UROBILINOGEN, URINE MANUAL NORMAL (NORMAL)
[2024-05-23 19:14] LABS: BACTERIA, URINE SMALL AMOUNT; HYALINE CAST, URINE NONE SEEN /lpf (0-1); RBC, URINE 0-1 /hpf (0-3); SQUAMOUS EPITHELIAL CELL URINE MOD AMOUNT /hpf (SMALL AMT); WBC, URINE 0-1 /hpf (0-3)
== END ==
LOC: M SMT 17:03
PROVIDERS: ATTEND Urology
DX: R31.9 Hematuria, unspecified (principal)

== ENCOUNTER → 2024-05-28 | Outpatient (CLI) | payer MEDICARE ==
[2024-05-28 17:48] LABS: HEMOGLOBIN 12.5 g/dl (12.0-15.5); MEAN CORPUSCULAR HEMOGLOBIN 30.3 pg (27.0-33.0); MEAN CORPUSCULAR HGB CONC 32.9 g/dl (32.0-36.5); MEAN CORPUSCULAR VOLUME 92.2 fl (80.0-96.0); PLATELET COUNT, AUTOMATED 239 10^3/uL (150-450); RED BLOOD COUNT 4.12 10^6/uL (4.00-5.40); WHITE BLOOD COUNT 11.1 10^3/uL (4.0-10.0)
[2024-05-28 18:21] LABS: PROCALCITONIN 0.09 ng/ml
[2024-05-30 12:13] LABS: BLOOD UREA NITROGEN 18 MG/DL (9-23); CALCIUM LEVEL 9.1 MG/DL (8.3-10.6); CARBON DIOXIDE LEVEL 32 MMOL/L (20-31); CHLORIDE LEVEL 101 MMOL/L (98-107); CREATININE FOR GFR 0.78 MG/DL (0.55-1.30); GLOMERULAR FILTRATION RATE > 60.0 (>39); GLUCOSE, FASTING 60 MG/DL (74-106); SODIUM LEVEL 136 MMOL/L (136-145)
== END ==
LOC: M PLALAB 16:05
PROVIDERS: ATTEND Physician Assistant Medical
DX: J40 Bronchitis, not specified as acute or chronic (principal)

== ENCOUNTER → 2024-06-04 | Outpatient (CLI) | payer MEDICARE ==
[~2024-06-04] MED LIST changes: +ISOVUE-370 76% 100ML VIAL ONE
== END ==
LOC: M PLAIMG 08:58
PROVIDERS: ATTEND Urology
DX: R31.9 Hematuria, unspecified (principal); E55.9 Vitamin D deficiency, unspecified; D50.9 Iron deficiency anemia, unspecified
CPT/HCPCS: 36415; 74178; 80053; 82306; 82728; 83735; 83970; 85025; Q9967

== ENCOUNTER → 2024-06-04 | Outpatient (CLI) | payer MEDICARE ==
[~2024-06-04] MED LIST changes: -ISOVUE-370 76% 100ML VIAL ONE
[2024-06-04 11:18] LABS: BASO % 0.3 % (0.0-1.0); HEMATOCRIT 39.6 % (36.0-47.0); HEMOGLOBIN 13.2 g/dl (12.0-15.5); LYMPH % 10.6 % (24.0-44.0); MEAN CORPUSCULAR HGB CONC 33.3 g/dl (32.0-36.5); MONO # 0.5 10^3/uL (0.0-0.8); MONO % 4.9 % (2.0-8.0); NEUTROPHILS # 7.8 10^3/uL (1.5-8.5); NEUTROPHILS % 82.8 % (36.0-66.0); PLATELET COUNT, AUTOMATED 259 10^3/uL (150-450); RED BLOOD COUNT 4.26 10^6/uL (4.00-5.40); WHITE BLOOD COUNT 9.5 10^3/uL (4.0-10.0)
[2024-06-04 11:39] LABS: ALBUMIN 3.5 G/DL (3.2-5.2); ALKALINE PHOSPHATASE 68 U/L (46-116); ALT/SGPT 23 U/L (7.0-40); AST/SGOT 13 U/L (<34); BILIRUBIN,TOTAL 0.3 MG/DL (0.3-1.2); BLOOD UREA NITROGEN 22 MG/DL (9-23); CALCIUM LEVEL 9.8 MG/DL (8.3-10.6); CARBON DIOXIDE LEVEL 31 MMOL/L (20-31); CHLORIDE LEVEL 103 MMOL/L (98-107); CREATININE FOR GFR 0.83 MG/DL (0.55-1.30); GLOMERULAR FILTRATION RATE > 60.0 (>39); GLUCOSE, FASTING 108 MG/DL (74-106); POTASSIUM SERUM 4.1 MMOL/L (3.5-5.1); PTH INTACT 75.9 PG/ML (18.5-88.0); SODIUM LEVEL 139 MMOL/L (136-145); TOTAL PROTEIN 6.6 G/DL (5.7-8.2)
[2024-06-04 11:40] LABS: FERRITIN 120.9 NG/ML (7.3-270.7); TOTAL 25(OH) VITAMIN D 76.1 NG/ML (20.0-100.0)
== END ==
LOC: M PLALAB 09:01
PROVIDERS: ATTEND Family Medicine
DX: E55.9 Vitamin D deficiency, unspecified (principal); D50.9 Iron deficiency anemia, unspecified

== ENCOUNTER → 2024-06-20 | Outpatient (REF) | payer MEDICARE | LOC: M SMT 17:02 | PROVIDERS: ATTEND Urology | DX: R31.9 Hematuria, unspecified (principal) ==

== ENCOUNTER → 2024-06-21 | Outpatient (CLI) | payer MEDICARE ==
[~2024-06-21] MED LIST changes: -ADV250INH INH; +ADVA1AER9 INH; +BUTR10DI TOP; +FERR325T81 PO; +LEVO75TAB PO; +MACR100C43 PO; +OXYB5TAB14 PO; +PYRI1TAB5 PO
== END ==
LOC: M RAD 07:29
PROVIDERS: ATTEND Family Medicine
DX: M50.11 Cervical disc disorder with radiculopathy, high cervical region (principal); M99.71 Connective tissue and disc stenosis of intervertebral foramina of cervical region

== ENCOUNTER → 2024-07-11 | Outpatient (CLI) | payer MEDICARE ==
[~2024-07-11] MED LIST changes: +ADV250INH INH; -ADVA1AER9 INH; -LEVO75TAB PO; -MACR100C43 PO; -OXYB5TAB14 PO; -PYRI1TAB5 PO
[2024-07-11 06:45] LABS: HEMATOCRIT 38.9 % (36.0-47.0); HEMOGLOBIN 12.4 g/dl (12.0-15.5); MEAN CORPUSCULAR HEMOGLOBIN 30.3 pg (27.0-33.0); MEAN CORPUSCULAR HGB CONC 31.9 g/dl (32.0-36.5); MEAN CORPUSCULAR VOLUME 95.1 fl (80.0-96.0); PLATELET COUNT, AUTOMATED 216 10^3/uL (150-450); RED BLOOD COUNT 4.09 10^6/uL (4.00-5.40); WHITE BLOOD COUNT 10.3 10^3/uL (4.0-10.0)
[2024-07-11 06:56] LABS: ALBUMIN 3.2 G/DL (3.2-5.2); ALKALINE PHOSPHATASE 62 U/L (35-104); ALT/SGPT 17 U/L (7.0-40); AST/SGOT 14 U/L (<34); BILIRUBIN,TOTAL 0.3 MG/DL (0.3-1.2); BLOOD UREA NITROGEN 16 MG/DL (9-23); CALCIUM LEVEL 8.9 MG/DL (8.3-10.6); CARBON DIOXIDE LEVEL 30 MMOL/L (20-31); CHLORIDE LEVEL 106 MMOL/L (98-107); CREATININE FOR GFR 0.75 MG/DL (0.55-1.30); GLOMERULAR FILTRATION RATE > 60.0 (>39); GLUCOSE, FASTING 90 MG/DL (74-106); POTASSIUM SERUM 4.1 MMOL/L (3.5-5.1); SODIUM LEVEL 142 MMOL/L (136-145); TOTAL PROTEIN 6.3 G/DL (5.7-8.2)
== END ==
LOC: M LAB 06:09
PROVIDERS: ATTEND Urology
DX: R31.9 Hematuria, unspecified (principal); R91.8 Other nonspecific abnormal finding of lung field; I70.0 Atherosclerosis of aorta

== ENCOUNTER → 2024-07-11 | Outpatient (CLI) | payer MEDICARE | LOC: M PLAIMG 10:36 | PROVIDERS: ATTEND Urology | DX: R91.8 Other nonspecific abnormal finding of lung field (principal); I70.0 Atherosclerosis of aorta; R31.9 Hematuria, unspecified ==

== ENCOUNTER → 2024-07-17 | Outpatient (REF) | payer MEDICARE ==
[~2024-07-17] MED LIST changes: -ADV250INH INH; +ADVA1AER9 INH; +MACR100C43 PO; +OXYB5TAB14 PO; +PYRI1TAB5 PO
[2024-07-17 15:55] LABS: APPEARANCE, URINE CLEAR (CLEAR); BACTERIA, URINE AUTO 1+ (NEGATIVE); BILIRUBIN, URINE AUTO NEGATIVE (NEGATIVE); BLOOD, URINE BLOOD 1+ (NEGATIVE); COLOR, URINE STRAW (YELLOW); GLUCOSE, URINE (UA) AUTO NEGATIVE (NEGATIVE); KETONE, URINE AUTO NEGATIVE (NEGATIVE); LEUKOCYTE ESTERASE, URINE AUTO NEGATIVE (NEGATIVE); NITRITE, URINE AUTO NEGATIVE (NEGATIVE); PROTEIN, URINE AUTO NEGATIVE (NEGATIVE); RBC, URINE AUTO 4 /HPF (0-3); SPECIFIC GRAVITY URINE AUTO 1.005 (1.002-1.035); SQUAMOUS EPITHELIAL CELL UR AU 1 /HPF (0-6); UROBILINOGEN, URINE AUTO 0.2 mg/dL (0.0-2.0); WBC, URINE AUTO 1 /HPF (0-3)
== END ==
LOC: M SFHCPLAZ 14:44
PROVIDERS: ATTEND Family Medicine
DX: Z01.818 Encounter for other preprocedural examination (principal)

== ENCOUNTER 2024-07-26 06:42 | Day surgery (SDC) | payer MEDICARE ==
[~2024-07-26] VITALS: Ht 152.4 cm; Wt 54.2 kg
[~2024-07-26 06:42] MED LIST changes: -MACR100C43 PO; -OXYB5TAB14 PO; -PYRI1TAB5 PO
[2024-07-26] MEDS: LR 1,000 ML IV SCH (08:01)
[2024-07-26] MEDS ORDERED: fentaNYL 100 MCG/2 ML INJECTION As Ordered ONE (08:03)
[2024-07-26] MEDS ORDERED: ONDANSETRON 4MG 2ML VIAL As Ordered ONE (08:03)
[2024-07-26] MEDS ORDERED: LIDOCAINE 2% 100MG/5ML SDV (FOR ANES.) As Ordered ONE (08:03)
[2024-07-26] MEDS ORDERED: MIDAZOLAM INJ 2MG/2ML VIAL As Ordered ONE (08:03)
[2024-07-26] MEDS ORDERED: propofoL 200 MG/20 ML VIAL As Ordered ONE (08:04)
[2024-07-26] MEDS ORDERED: ACETAMINOPHEN 1000MG/100ML IV BAG As Ordered ONE (08:09)
[2024-07-26] MEDS: ceFAZolin SOD 2 GM in IV 1 EA IV ONE (09:11)
[2024-07-26] MEDS ORDERED: ePHEDrine SULFATE 25 MG/5 ML(5MG/ML) SYRINGE As Ordered ONE (09:17)
[2024-07-26] MEDS: ISOVUE-300 61% 100ML VIAL As Ordered ONE (09:30)
[2024-07-26] MEDS ORDERED: oxyCODONE 5MG TAB PO PRN (10:05)
[2024-07-26] MEDS ORDERED: fentaNYL 100 MCG/2 ML INJECTION IV PRN (10:05)
[2024-07-26] MEDS ORDERED: ONDANSETRON 4MG 2ML VIAL IV PRN (10:05)
[2024-07-26] MEDS ORDERED: PYRI1TAB5 PO (10:17)
[2024-07-26] MEDS ORDERED: OXYB5TAB14 PO (10:17)
[2024-07-26] MEDS ORDERED: MACR100C43 PO (10:17)
[2024-07-26 11:20] VITALS: BP 124/59; TEMP 98.6; O2SAT 95
== END 2024-07-26 11:44 | disposition home or self-care (01) ==
LOC: M SDC 06:42
PROVIDERS: ATTEND Urology
DX: N13.5 Crossing vessel and stricture of ureter without hydronephrosis (principal); R31.0 Gross hematuria; J44.9 Chronic obstructive pulmonary disease, unspecified; I10 Essential (primary) hypertension; Z85.118 Personal history of other malignant neoplasm of bronchus and lung; Z79.899 Other long term (current) drug therapy; Z79.51 Long term (current) use of inhaled steroids; E78.5 Hyperlipidemia, unspecified; D50.9 Iron deficiency anemia, unspecified; E63.8 Other specified nutritional deficiencies
CPT/HCPCS: 52332; 52344; 76000; C1769; C2617; J0131; J0690; J1100; J2250; J2405; J3010; Q9967

== ENCOUNTER → 2024-07-30 | Outpatient (CLI) | payer MEDICARE ==
[~2024-07-30] MED LIST changes: +MACR100C43 PO; +OXYB5TAB14 PO; +PROHANCE 279.3MG/ML 5ML VIAL As Ordered ONE; +PYRI1TAB5 PO
== END ==
LOC: M RAD 14:34
PROVIDERS: ATTEND Neurological Surgery
DX: G95.0 Syringomyelia and syringobulbia (principal); R51.9 Headache, unspecified
CPT/HCPCS: 70553; 72156; A9576

== ENCOUNTER → 2024-08-01 | Outpatient (CLI) | payer MEDICARE ==
[~2024-08-01] MED LIST changes: +PROHANCE 279.3MG/ML 15ML VIAL ONE; -PROHANCE 279.3MG/ML 5ML VIAL As Ordered ONE
== END ==
LOC: M PLAIMG 14:16
PROVIDERS: ATTEND Neurological Surgery
DX: G95.0 Syringomyelia and syringobulbia (principal); R51.9 Headache, unspecified
CPT/HCPCS: 72157; A9576

== ENCOUNTER → 2024-08-02 | Outpatient (CLI) | payer MEDICARE ==
[~2024-08-02] MED LIST changes: -PROHANCE 279.3MG/ML 15ML VIAL ONE
== END ==
LOC: M RAD 07:30
PROVIDERS: ATTEND Internal Medicine Pulmonary Disease
DX: Z12.2 Encounter for screening for malignant neoplasm of respiratory organs (principal); F17.218 Nicotine dependence, cigarettes, with other nicotine-induced disorders; J47.9 Bronchiectasis, uncomplicated; J43.2 Centrilobular emphysema; R91.8 Other nonspecific abnormal finding of lung field; I70.0 Atherosclerosis of aorta; I25.10 Atherosclerotic heart disease of native coronary artery without angina pectoris

== ENCOUNTER 2024-08-08 11:24 | Emergency (ER) | payer OTHER, MEDICARE ==
[~2024-08-08] VITALS: Ht 162.6 cm; Wt 64.1 kg
[2024-08-08] MEDS ORDERED: ISOVUE-370 76% 100ML VIAL As Ordered ONE (12:03)
[2024-08-08] MEDS ORDERED: LEVO75TAB PO (14:58)
[2024-08-08 15:15] VITALS: BP 114/60; TEMP 97.6; O2SAT 94
[2024-08-08] MEDS: LevoFLOXacin 750 MG TABLET PO ONE (15:18)
== END 2024-08-08 15:36 | disposition home or self-care (01) ==
LOC: EDBD 11:24 → M ED 11:24
DX: J18.9 Pneumonia, unspecified organism (principal); R09.02 Hypoxemia; R55 Syncope and collapse; V48.5XXA Car driver injured in noncollision transport accident in traffic accident, initial encounter; Y92.9 Unspecified place or not applicable; Y93.9 Activity, unspecified; Y99.9 Unspecified external cause status; R91.8 Other nonspecific abnormal finding of lung field; R93.422 Abnormal radiologic findings on diagnostic imaging of left kidney; J43.9 Emphysema, unspecified; I10 Essential (primary) hypertension; E78.5 Hyperlipidemia, unspecified; K21.9 Gastro-esophageal reflux disease without esophagitis; J44.9 Chronic obstructive pulmonary disease, unspecified; F32.A Depression, unspecified; Z79.899 Other long term (current) drug therapy; Z88.0 Allergy status to penicillin; Z88.2 Allergy status to sulfonamides; Z88.1 Allergy status to other antibiotic agents; Z88.5 Allergy status to narcotic agent; Z88.8 Allergy status to other drugs, medicaments and biological substances
CPT/HCPCS: 70450; 71275; 72125; 80047; 99284; Q9967

== ENCOUNTER → 2024-09-03 | Outpatient (CLI) | payer MEDICARE ==
[~2024-09-03] MED LIST changes: +LEVO75TAB PO
== END ==
LOC: M PLARAD 09:28
PROVIDERS: ATTEND Internal Medicine Pulmonary Disease
DX: R91.1 Solitary pulmonary nodule (principal); N13.30 Unspecified hydronephrosis; Z96.0 Presence of urogenital implants
CPT/HCPCS: 78815; A9552

== ENCOUNTER → 2024-09-19 | Outpatient (CLI) | payer MEDICARE ==
[2024-09-19 10:56] LABS: BASO # 0.1 10^3/uL (0.0-0.2); BASO % 0.6 % (0.0-1.0); EOS % 0.1 % (0.0-3.0); HEMATOCRIT 37.9 % (36.0-47.0); HEMOGLOBIN 12.2 g/dl (12.0-15.5); LYMPH # 2.2 10^3/uL (1.5-5.0); LYMPH % 21.5 % (24.0-44.0); MEAN CORPUSCULAR HGB CONC 32.2 g/dl (32.0-36.5); MEAN CORPUSCULAR VOLUME 93.3 fl (80.0-96.0); MONO # 0.8 10^3/uL (0.0-0.8); MONO % 7.5 % (2.0-8.0); NEUTROPHILS # 7.1 10^3/uL (1.5-8.5); NEUTROPHILS % 69.8 % (36.0-66.0); PLATELET COUNT, AUTOMATED 256 10^3/uL (150-450); RED BLOOD COUNT 4.06 10^6/uL (4.00-5.40); WHITE BLOOD COUNT 10.2 10^3/uL (4.0-10.0)
[2024-09-19 11:16] LABS: ALBUMIN 3.2 G/DL (3.2-5.2); ALKALINE PHOSPHATASE 69 U/L (35-104); ALT/SGPT 18 U/L (7.0-40); AST/SGOT 14 U/L (<34); BILIRUBIN,TOTAL 0.3 MG/DL (0.3-1.2); BLOOD UREA NITROGEN 16 MG/DL (9-23); CALCIUM LEVEL 9.2 MG/DL (8.3-10.6); CARBON DIOXIDE LEVEL 28 MMOL/L (20-31); CHLORIDE LEVEL 107 MMOL/L (98-107); CREATININE FOR GFR 0.78 MG/DL (0.55-1.30); GLOMERULAR FILTRATION RATE > 60.0 (>39); GLUCOSE, FASTING 89 MG/DL (74-106); MAGNESIUM LEVEL 1.8 MG/DL (1.8-2.4); POTASSIUM SERUM 3.8 MMOL/L (3.5-5.1); PTH INTACT 41.7 PG/ML (18.5-88.0); SODIUM LEVEL 142 MMOL/L (136-145); TOTAL PROTEIN 6.2 G/DL (5.7-8.2)
[2024-09-19 11:17] LABS: FERRITIN 159.2 NG/ML (7.3-270.7)
[2024-09-19 11:18] LABS: TOTAL 25(OH) VITAMIN D 78.8 NG/ML (20.0-100.0)
== END ==
LOC: M PLALAB 06:51
PROVIDERS: ATTEND Family Medicine
DX: D50.9 Iron deficiency anemia, unspecified (principal); E55.9 Vitamin D deficiency, unspecified; I50.32 Chronic diastolic (congestive) heart failure

== ENCOUNTER → 2024-09-28 | Outpatient (REF) | payer MEDICARE | LOC: M SMT 14:25 | PROVIDERS: ATTEND Urology | DX: N28.9 Disorder of kidney and ureter, unspecified (principal) ==

== ENCOUNTER → 2024-09-28 | Outpatient (CLI) | payer MEDICARE ==
[2024-09-28 18:44] LABS: HEMATOCRIT 38.5 % (36.0-47.0); HEMOGLOBIN 12.2 g/dl (12.0-15.5); MEAN CORPUSCULAR HEMOGLOBIN 29.8 pg (27.0-33.0); MEAN CORPUSCULAR HGB CONC 31.7 g/dl (32.0-36.5); MEAN CORPUSCULAR VOLUME 94.1 fl (80.0-96.0); PLATELET COUNT, AUTOMATED 281 10^3/uL (150-450); RED BLOOD COUNT 4.09 10^6/uL (4.00-5.40)
[2024-09-28 19:14] LABS: ALBUMIN 3.3 G/DL (3.2-5.2); ALKALINE PHOSPHATASE 70 U/L (35-104); ALT/SGPT 17 U/L (7.0-40); AST/SGOT 17 U/L (<34); BILIRUBIN,TOTAL 0.2 MG/DL (0.3-1.2); BLOOD UREA NITROGEN 16 MG/DL (9-23); CALCIUM LEVEL 8.4 MG/DL (8.3-10.6); CARBON DIOXIDE LEVEL 28 MMOL/L (20-31); CHLORIDE LEVEL 105 MMOL/L (98-107); CREATININE FOR GFR 0.77 MG/DL (0.55-1.30); GLOMERULAR FILTRATION RATE > 60.0 (>39); GLUCOSE, FASTING 62 MG/DL (74-106); SODIUM LEVEL 142 MMOL/L (136-145); TOTAL PROTEIN 6.3 G/DL (5.7-8.2)
== END ==
LOC: M PLALAB 14:25
PROVIDERS: ATTEND Urology
DX: N28.9 Disorder of kidney and ureter, unspecified (principal); J98.11 Atelectasis; I51.7 Cardiomegaly

== ENCOUNTER → 2024-10-04 | Outpatient (REF) | payer MEDICARE | LOC: M SMT 14:50 | PROVIDERS: ATTEND Urology | DX: Z01.818 Encounter for other preprocedural examination (principal); Z79.899 Other long term (current) drug therapy ==

== ENCOUNTER 2024-10-08 09:41 | Day surgery (SDC) | payer MEDICARE ==
[~2024-10-08] VITALS: Ht 152.4 cm; Wt 49.6 kg
[~2024-10-08 09:41] MED LIST changes: +DENO60SY2 SC; -PROL60SO SC
[2024-10-08] MEDS ORDERED: LIDOCAINE 2% 100MG/5ML SDV (FOR ANES.) As Ordered ONE (09:45)
[2024-10-08] MEDS ORDERED: propofoL 200 MG/20 ML VIAL As Ordered ONE (09:45)
[2024-10-08] MEDS ORDERED: ONDANSETRON 4MG 2ML VIAL As Ordered ONE (09:46)
[2024-10-08] MEDS ORDERED: GLYCOPYRROLATE INJ 0.2 MG/ML 2 ML VIAL As Ordered ONE (09:46)
[2024-10-08] MEDS ORDERED: fentaNYL 100 MCG/2 ML INJECTION As Ordered ONE (09:47)
[2024-10-08] MEDS: LR 1,000 ML IV SCH (11:05)
[2024-10-08] MEDS: ceFAZolin SOD 2 GM in IV 1 EA IV ONE (11:38)
[2024-10-08] MEDS ORDERED: ACETAMINOPHEN 1000MG/100ML IV BAG As Ordered ONE (12:03)
[2024-10-08] MEDS: ISOVUE-300 61% 100ML VIAL As Ordered ONE (12:52)
[2024-10-08] MEDS ORDERED: HYDROMORPHONE HCL 0.5 MG/ 0.5 ML SYRINGE IV PRN (13:05)
[2024-10-08] MEDS ORDERED: fentaNYL 100 MCG/2 ML INJECTION IV PRN (13:05)
[2024-10-08] MEDS ORDERED: LR 1,000 ML IV SCH (13:05)
[2024-10-08] MEDS ORDERED: ONDANSETRON 4MG 2ML VIAL IV PRN (13:05)
[2024-10-08] MEDS ORDERED: oxyCODONE 5MG TAB PO PRN (13:05)
[2024-10-08] MEDS: oxyBUTYnin 5 MG TAB PO PRN (13:38)
[2024-10-08 14:15] VITALS: BP 124/59; TEMP 99.7; O2SAT 93
== END 2024-10-08 14:30 | disposition home or self-care (01) ==
LOC: M SDC 09:41
PROVIDERS: ATTEND Urology
DX: N28.9 Disorder of kidney and ureter, unspecified (principal); C64.2 Malignant neoplasm of left kidney, except renal pelvis; Z96.0 Presence of urogenital implants; I77.0 Arteriovenous fistula, acquired; Z85.118 Personal history of other malignant neoplasm of bronchus and lung; Z90.2 Acquired absence of lung [part of]; Z88.1 Allergy status to other antibiotic agents; Z88.5 Allergy status to narcotic agent; Z88.0 Allergy status to penicillin; Z88.2 Allergy status to sulfonamides; Z79.899 Other long term (current) drug therapy; F17.210 Nicotine dependence, cigarettes, uncomplicated
CPT/HCPCS: 52332; 52354; 76000; 88305; C1769; C2617; J0131; J0690; J1100; J1596; J2405; J3010; Q9967

== ENCOUNTER → 2024-11-01 | Outpatient (CLI) | payer MEDICARE ==
[~2024-11-01] MED LIST changes: +PROHANCE 279.3MG/ML 5ML VIAL As Ordered ONE
== END ==
LOC: M RAD 10:30
PROVIDERS: ATTEND Neurological Surgery
DX: G95.0 Syringomyelia and syringobulbia (principal); M46.96 Unspecified inflammatory spondylopathy, lumbar region
CPT/HCPCS: 72158; A9576

== ENCOUNTER → 2024-11-07 | Outpatient (CLI) | payer MEDICARE ==
[~2024-11-07] MED LIST changes: -PROHANCE 279.3MG/ML 5ML VIAL As Ordered ONE
== END ==
LOC: M PLAIMG 09:14
PROVIDERS: ATTEND Internal Medicine Pulmonary Disease
DX: Z01.811 Encounter for preprocedural respiratory examination (principal)

== ENCOUNTER → 2024-11-14 | Outpatient (CLI) | payer MEDICARE ==
[~2024-11-14] MED LIST changes: +BELB75MI SL; +LEVA45AE INH; +PRED5TA PO
[2024-11-14 09:45] LABS: HEMOGLOBIN 12.4 g/dl (12.0-15.5); MEAN CORPUSCULAR HEMOGLOBIN 30.2 pg (27.0-33.0); MEAN CORPUSCULAR HGB CONC 31.8 g/dl (32.0-36.5); MEAN CORPUSCULAR VOLUME 94.9 fl (80.0-96.0); PLATELET COUNT, AUTOMATED 246 10^3/uL (150-450); RED BLOOD COUNT 4.11 10^6/uL (4.00-5.40); WHITE BLOOD COUNT 9.5 10^3/uL (4.0-10.0)
[2024-11-14 09:48] LABS: ALBUMIN 3.3 G/DL (3.2-5.2); ALKALINE PHOSPHATASE 62 U/L (35-104); ALT/SGPT 18 U/L (7.0-40); AST/SGOT 14 U/L (<34); BILIRUBIN,TOTAL 0.2 MG/DL (0.3-1.2); BLOOD UREA NITROGEN 22 MG/DL (9-23); CARBON DIOXIDE LEVEL 31 MMOL/L (20-31); CHLORIDE LEVEL 104 MMOL/L (98-107); CREATININE FOR GFR 0.78 MG/DL (0.55-1.30); GLOMERULAR FILTRATION RATE > 60.0 (>39); GLUCOSE, FASTING 78 MG/DL (74-106); POTASSIUM SERUM 3.5 MMOL/L (3.5-5.1); SODIUM LEVEL 143 MMOL/L (136-145); TOTAL PROTEIN 6.3 G/DL (5.7-8.2)
[2024-11-14 09:50] LABS: INR 0.92; PROTHROMBIN TIME 12.7 SECONDS (12.5-14.5)
== END ==
LOC: M PLALAB 07:16
PROVIDERS: ATTEND Urology
DX: C64.2 Malignant neoplasm of left kidney, except renal pelvis (principal)

== ENCOUNTER 2024-11-19 05:48 | Inpatient (IN) | payer MEDICARE ==
[~2024-11-19] VITALS: Ht 149.9 cm; Wt 47.1 kg
[2024-11-19] VITALS (21 sets, daily range): BP systolic 73–164; BP diastolic 51–84; TEMP 98.6–99.9; O2SAT 95–100
[~2024-11-19 05:48] MED LIST changes: -BELB75MI SL; -LEVA45AE INH; -PRED5TA PO
[2024-11-19] MEDS ORDERED: LevoFLOXacin 750 MG TABLET PO SCH (06:00)
[2024-11-19 08:07] LABS: VENOUS BASE EXCESS 3.5 (-2.0-2.0); VENOUS HCO3 28.6 MMOL/L (23.0-27.0); VENOUS O2 SATURATION 93.9 % (60.0-80.0); VENOUS PARTIAL PRESSURE CO2 45.1 mmHg (38.0-50.0); VENOUS PARTIAL PRESSURE O2 70.8 mmHg (30.0-50.0); VENOUS STANDARD HCO3 27.5 MMOL/L
[2024-11-19 08:14] LABS: BASO % 0.1 % (0.0-1.0); EOS % 0.1 % (0.0-3.0); HEMOGLOBIN 11.8 g/dl (12.0-15.5); LYMPH # 0.5 10^3/uL (1.5-5.0); LYMPH % 3.1 % (24.0-44.0); MEAN CORPUSCULAR HEMOGLOBIN 29.6 pg (27.0-33.0); MEAN CORPUSCULAR HGB CONC 32.8 g/dl (32.0-36.5); MEAN CORPUSCULAR VOLUME 90.5 fl (80.0-96.0); MONO # 0.6 10^3/uL (0.0-0.8); MONO % 4.4 % (2.0-8.0); NEUTROPHILS # 13.2 10^3/uL (1.5-8.5); NEUTROPHILS % 91.7 % (36.0-66.0); PLATELET COUNT, AUTOMATED 173 10^3/uL (150-450); RED BLOOD COUNT 3.98 10^6/uL (4.00-5.40); WHITE BLOOD COUNT 14.4 10^3/uL (4.0-10.0)
[2024-11-19] MEDS: IPRATROPIUM 0.5MG/ALBUTEROL 2.5MG INH SOL UD 3ML NEB ONE ×2 (08:33)
[2024-11-19 08:42] LABS: ALBUMIN 2.7 G/DL (3.2-5.2); ALKALINE PHOSPHATASE 55 U/L (35-104); ALT/SGPT 16 U/L (7.0-40); AST/SGOT 18 U/L (<34); BILIRUBIN,DIRECT < 0.1 MG/DL (<0.4); BILIRUBIN,TOTAL 0.2 MG/DL (0.3-1.2); BLOOD UREA NITROGEN 20 MG/DL (9-23); CALCIUM LEVEL 8.3 MG/DL (8.3-10.6); CARBON DIOXIDE LEVEL 29 MMOL/L (20-31); CHLORIDE LEVEL 103 MMOL/L (98-107); CREATININE FOR GFR 0.68 MG/DL (0.55-1.30); GLOMERULAR FILTRATION RATE > 60.0 (>39); GLUCOSE, FASTING 94 MG/DL (74-106); POTASSIUM SERUM 3.6 MMOL/L (3.5-5.1); SODIUM LEVEL 140 MMOL/L (136-145); TOTAL PROTEIN 5.7 G/DL (5.7-8.2)
[2024-11-19] MEDS ORDERED: LEVA45AE INH (10:46)
[2024-11-19] MEDS ORDERED: BELB75MI SL (10:46)
[2024-11-19] MEDS ORDERED: PRED5TA PO (10:46)
[2024-11-19] MEDS ORDERED: HOME MED LIST COMPLETE! XX SCH (10:50)
[2024-11-19 10:53] LABS: PROCALCITONIN 0.88 ng/ml
[2024-11-19] MEDS ORDERED: MECLIZINE 25 MG TABLET PO PRN (11:50)
[2024-11-19] MEDS ORDERED: BUPRENORPHINE 75 MCG SL SCH (11:50)
[2024-11-19] MEDS ORDERED: LEVALBUTEROL HFA 45MCG/ACT 15GM INHALER INH SCH (11:50)
[2024-11-19] MEDS ORDERED: SUCRALFATE SUSP 1GM/10ML UD PO PRN (11:50)
[2024-11-19] MEDS ORDERED: oxyBUTYnin 5 MG TAB PO PRN (11:50)
[2024-11-19] MEDS ORDERED: LevoFLOXacin 500 MG TABLET PO ONE (12:25)
[2024-11-19] MEDS: methylPREDNISolone 40MG 1ML VIAL IV SCH (12:30)
[2024-11-19] MEDS: ETOMIDATE INJ 20MG/10ML VIAL IV STA (12:46)
[2024-11-19] MEDS: ROCURONIUM BROMIDE 50MG/5ML VIAL IV STA (12:47)
[2024-11-19] MEDS ORDERED: PROPOFOL 1,000 MG/100 ML VIAL As Ordered ONE (13:00)
[2024-11-19 13:19] LABS: ABG HCO3 24.4 MMOL/L (22.0-26.0); ABG O2 SATURATION 99.5 % (95.0-99.0); ABG PARTIAL PRESSURE CO2 43.4 mmHg (35.0-45.0); ABG PARTIAL PRESSURE O2 494.2 mmHg (75.0-100.0); ABG STANDARD HCO3 23.7 MMOL/L. (22.0-26.0); ABG TOTAL CO2 25.7 MMOL/L (23.0-31.0); ABG pH (ARTERIAL) 7.368 UNITS (7.350-7.450)
[2024-11-19] MEDS: LEVALBUTEROL 1.25 MG 0.5ML CONCENTRATE NEB INH PRN (13:27)
[2024-11-19] MEDS: propofoL 1,000 MG in IV 1 EA IV SCH ×2 (13:55→22:05)
[2024-11-19] MEDS ORDERED: MIDAZOLAM 5MG/ML 1ML VIAL As Ordered ONE (15:13)
[2024-11-19] MEDS: MIDAZOLAM 5MG/ML 1ML VIAL IV ONE (15:15)
[2024-11-19] MEDS ORDERED: GLUCOSE 4 GM CHEW PO PRN (15:45)
[2024-11-19] MEDS ORDERED: GLUCAGON INJ 1MG VIAL SC PRN (15:45)
[2024-11-19] MEDS ORDERED: DEXTROSE 50% 50ML SYRINGE IV PRN (15:45)
[2024-11-19] MEDS: LevoFLOXacin IV 750 MG in IV 1 EA IV SCH (18:16)
[2024-11-19] MEDS: INSULIN LISPRO (NovoLOG) PER UNIT SC SCH (18:16)
[2024-11-19] MEDS: NS (Normal Saline) 0.9% 1,000 ML IV SCH (18:17)
[2024-11-19] MEDS: FORMOTEROL FUMARATE 20 MCG/2 ML INHALATION SOLUTION (PERFOROMIST) INH SCH (19:05)
[2024-11-19] MEDS: BUDESONIDE 0.5 MG/2 ML INHALATION SUSPENSION NEB SCH (19:05)
[2024-11-19 19:09] LABS: ABG BASE EXCESS 2.2 (-2.0-2.0); ABG HCO3 26.1 MMOL/L (22.0-26.0); ABG O2 SATURATION 98.7 % (95.0-99.0); ABG PARTIAL PRESSURE CO2 38.4 mmHg (35.0-45.0); ABG PARTIAL PRESSURE O2 119.3 mmHg (75.0-100.0); ABG STANDARD HCO3 26.4 MMOL/L. (22.0-26.0); ABG TOTAL CO2 27.3 MMOL/L (23.0-31.0); ABG pH (ARTERIAL) 7.451 UNITS (7.350-7.450)
[2024-11-19] MEDS: traZODone 50 MG TAB PO SCH (20:17)
[2024-11-19] MEDS: clonazePAM 1 MG TAB PO SCH (20:17)
[2024-11-19] MEDS: ACETAMINOPHEN 325 MG TAB PO PRN (20:37)
[2024-11-20] VITALS (66 sets, daily range): BP systolic 84–137; BP diastolic 51–79; TEMP 97.7–98.9; O2SAT 90–96
[2024-11-20 04:58] LABS: HEMATOCRIT 33.9 % (36.0-47.0); HEMOGLOBIN 11.3 g/dl (12.0-15.5); MEAN CORPUSCULAR HGB CONC 33.3 g/dl (32.0-36.5); MEAN CORPUSCULAR VOLUME 89.9 fl (80.0-96.0); PLATELET COUNT, AUTOMATED 167 10^3/uL (150-450); RED BLOOD COUNT 3.77 10^6/uL (4.00-5.40); WHITE BLOOD COUNT 13.8 10^3/uL (4.0-10.0)
[2024-11-20 05:22] LABS: ALBUMIN 2.5 G/DL (3.2-5.2); ALKALINE PHOSPHATASE 64 U/L (35-104); ALT/SGPT 30 U/L (7.0-40); AST/SGOT 31 U/L (<34); BILIRUBIN,TOTAL 0.3 MG/DL (0.3-1.2); BLOOD UREA NITROGEN 26 MG/DL (9-23); CALCIUM LEVEL 7.9 MG/DL (8.3-10.6); CARBON DIOXIDE LEVEL 26 MMOL/L (20-31); CHLORIDE LEVEL 105 MMOL/L (98-107); CREATININE FOR GFR 0.77 MG/DL (0.55-1.30); GLOMERULAR FILTRATION RATE > 60.0 (>39); GLUCOSE, FASTING 169 MG/DL (74-106); MAGNESIUM LEVEL 1.8 MG/DL (1.8-2.4); SODIUM LEVEL 140 MMOL/L (136-145); TOTAL PROTEIN 5.4 G/DL (5.7-8.2)
[2024-11-20 05:34] LABS: ABG BASE EXCESS 3.4 (-2.0-2.0); ABG HCO3 26.9 MMOL/L (22.0-26.0); ABG O2 SATURATION 97.7 % (95.0-99.0); ABG PARTIAL PRESSURE CO2 36.8 mmHg (35.0-45.0); ABG STANDARD HCO3 27.5 MMOL/L. (22.0-26.0); ABG pH (ARTERIAL) 7.482 UNITS (7.350-7.450)
[2024-11-20] MEDS ORDERED: LevoFLOXacin 250 MG TABLET PO SCH (06:00)
[2024-11-20] MEDS ORDERED: OMEPRAZOLE 20MG CAP PO SCH (09:00)
[2024-11-20] MEDS ORDERED: MIDAZOLAM INJ 2MG/2ML VIAL As Ordered ONE (09:06)
[2024-11-20] MEDS: ENOXAPARIN 30MG/0.3ML SYRINGE (J1650 PER 10MG) SC SCH (09:19)
[2024-11-20] MEDS: PANTOPRAZOLE 40MG VIAL IV SCH (09:19)
[2024-11-20] MEDS: MIDAZOLAM INJ 2MG/2ML VIAL IV PRN (09:20)
[2024-11-20] MEDS: FERROUS SULFATE 325MG TAB PO SCH (09:20)
[2024-11-20] MEDS: CitaloPRAM (CeleXA) 20 MG TAB PO SCH (09:20)
[2024-11-20] MEDS: FLUTICASONE PROP 0.05% NASAL SPRAY 16 GM (FLONASE) SCH (09:20)
[2024-11-20] MEDS: SIMVASTATIN 20 MG TAB PO SCH (09:20)
[2024-11-20 12:26] LABS: ABG BASE EXCESS 0.6 (-2.0-2.0); ABG HCO3 23.8 MMOL/L (22.0-26.0); ABG O2 SATURATION 93.6 % (95.0-99.0); ABG PARTIAL PRESSURE CO2 33.4 mmHg (35.0-45.0); ABG PARTIAL PRESSURE O2 67.3 mmHg (75.0-100.0); ABG STANDARD HCO3 24.9 MMOL/L. (22.0-26.0); ABG TOTAL CO2 24.8 MMOL/L (23.0-31.0); ABG pH (ARTERIAL) 7.471 UNITS (7.350-7.450)
[2024-11-20] MEDS: GLYCOPYRROLATE INJ 0.2 MG/ML 2 ML VIAL IV ONE (13:07)
[2024-11-20] MEDS: NS 500 ML IV ONE (15:36)
[2024-11-21] VITALS (78 sets, daily range): BP systolic 91–211; BP diastolic 50–113; TEMP 98.1–99.9; O2SAT 90–100
[2024-11-21] MEDS: fentaNYL 100 MCG/2 ML INJECTION IV PRN (04:07)
[2024-11-21 05:01] LABS: HEMATOCRIT 32.1 % (36.0-47.0); HEMOGLOBIN 10.3 g/dl (12.0-15.5); MEAN CORPUSCULAR HEMOGLOBIN 29.1 pg (27.0-33.0); MEAN CORPUSCULAR HGB CONC 32.1 g/dl (32.0-36.5); MEAN CORPUSCULAR VOLUME 90.7 fl (80.0-96.0); PLATELET COUNT, AUTOMATED 161 10^3/uL (150-450); RED BLOOD COUNT 3.54 10^6/uL (4.00-5.40); WHITE BLOOD COUNT 12.3 10^3/uL (4.0-10.0)
[2024-11-21 05:34] LABS: BLOOD UREA NITROGEN 29 MG/DL (9-23); CALCIUM LEVEL 7.8 MG/DL (8.3-10.6); CARBON DIOXIDE LEVEL 27 MMOL/L (20-31); CHLORIDE LEVEL 109 MMOL/L (98-107); CREATININE FOR GFR 0.67 MG/DL (0.55-1.30); GLOMERULAR FILTRATION RATE > 60.0 (>39); GLUCOSE, FASTING 156 MG/DL (74-106); MAGNESIUM LEVEL 1.8 MG/DL (1.8-2.4); PHOSPHORUS LEVEL 3.1 MG/DL (2.4-5.1); POTASSIUM SERUM 4.2 MMOL/L (3.5-5.1); SODIUM LEVEL 142 MMOL/L (136-145)
[2024-11-21 09:00] LABS: ABG BASE EXCESS 1.6 (-2.0-2.0); ABG HCO3 25.5 MMOL/L (22.0-26.0); ABG O2 SATURATION 97.1 % (95.0-99.0); ABG PARTIAL PRESSURE CO2 37.4 mmHg (35.0-45.0); ABG PARTIAL PRESSURE O2 93.9 mmHg (75.0-100.0); ABG STANDARD HCO3 25.9 MMOL/L. (22.0-26.0); ABG TOTAL CO2 26.7 MMOL/L (23.0-31.0); ABG pH (ARTERIAL) 7.452 UNITS (7.350-7.450)
[2024-11-21] MEDS ORDERED: dexmedeTOMidine 200 MCG in IV 1 EA IV SCH (10:25)
[2024-11-21] MEDS: LEVALBUTEROL 1.25 MG 0.5ML CONCENTRATE NEB INH PRN (10:29)
[2024-11-21] MEDS: LEVALBUTEROL 1.25 MG 0.5ML CONCENTRATE NEB NEB STA (10:33)
[2024-11-21] MEDS: LEVALBUTEROL 1.25 MG 0.5ML CONCENTRATE NEB INH SCH (11:32)
[2024-11-21] MEDS ORDERED: LEVALBUTEROL HFA 45MCG/ACT 15GM INHALER INH SCH (14:00)
[2024-11-21] MEDS ORDERED: dilTIAZem 25MG/5ML VIAL As Ordered ONE (15:02)
[2024-11-21] MEDS: dilTIAZem 25MG/5ML VIAL IV STA (15:03)
[2024-11-21] MEDS ORDERED: AMIODARONE HCL 150 MG/100 ML PREMIXED BAG (NEXTERONE) As Ordered ONE (15:05)
[2024-11-21] MEDS: AMIODARONE HCL 150 MG in IV 1 EA IV ONE (15:07)
[2024-11-21] MEDS ORDERED: VERAPAMIL 5MG/2ML VIAL As Ordered ONE (15:30)
[2024-11-21] MEDS: VERAPAMIL 5MG/2ML VIAL IV STA (15:30)
[2024-11-21] MEDS: ETOMIDATE INJ 20MG/10ML VIAL IV STA (15:45)
[2024-11-21] MEDS ORDERED: ROCURONIUM BROMIDE 50MG/5ML VIAL IV SCH (15:46)
[2024-11-21] MEDS ORDERED: ROCURONIUM BROMIDE 50MG/5ML VIAL ONE (16:53)
[2024-11-21 17:20] LABS: ABG HCO3 24.2 MMOL/L (22.0-26.0); ABG O2 SATURATION 96.7 % (95.0-99.0); ABG PARTIAL PRESSURE O2 101.1 mmHg (75.0-100.0); ABG STANDARD HCO3 21.9 MMOL/L. (22.0-26.0); ABG TOTAL CO2 25.9 MMOL/L (23.0-31.0); ABG pH (ARTERIAL) 7.278 UNITS (7.350-7.450)
[2024-11-21] MEDS: propofoL 1,000 MG in IV 1 EA IV SCH (17:24)
[2024-11-21] MEDS ORDERED: LevoFLOXacin IV 750 MG in IV 1 EA IV SCH (18:00)
[2024-11-21] MEDS: LevoFLOXacin 750 MG TABLET PO SCH (19:01)
[2024-11-21 19:34] LABS: ABG BASE EXCESS 1.2 (-2.0-2.0); ABG HCO3 25.5 MMOL/L (22.0-26.0); ABG O2 SATURATION 98.2 % (95.0-99.0); ABG PARTIAL PRESSURE CO2 39.5 mmHg (35.0-45.0); ABG PARTIAL PRESSURE O2 110.2 mmHg (75.0-100.0); ABG STANDARD HCO3 25.5 MMOL/L. (22.0-26.0); ABG TOTAL CO2 26.7 MMOL/L (23.0-31.0); ABG pH (ARTERIAL) 7.428 UNITS (7.350-7.450)
[2024-11-21] MEDS ORDERED: BELBUCA SL SCH (21:00)
[2024-11-21] MEDS: BUPRENORPHINE 75 MCG XX SCH (22:20)
[2024-11-22] VITALS (38 sets, daily range): BP systolic 105–167; BP diastolic 55–81; TEMP 97.6–98.2; O2SAT 96–100
[2024-11-22 05:48] LABS: ABG BASE EXCESS 2.4 (-2.0-2.0); ABG HCO3 26.1 MMOL/L (22.0-26.0); ABG O2 SATURATION 97.2 % (95.0-99.0); ABG PARTIAL PRESSURE CO2 36.9 mmHg (35.0-45.0); ABG PARTIAL PRESSURE O2 99.9 mmHg (75.0-100.0); ABG STANDARD HCO3 26.6 MMOL/L. (22.0-26.0); ABG TOTAL CO2 27.2 MMOL/L (23.0-31.0); ABG pH (ARTERIAL) 7.467 UNITS (7.350-7.450)
[2024-11-22 06:01] LABS: BLOOD UREA NITROGEN 27 MG/DL (9-23); CALCIUM LEVEL 7.8 MG/DL (8.3-10.6); CARBON DIOXIDE LEVEL 27 MMOL/L (20-31); CHLORIDE LEVEL 106 MMOL/L (98-107); CREATININE FOR GFR 0.62 MG/DL (0.55-1.30); GLOMERULAR FILTRATION RATE > 60.0 (>39); GLUCOSE, FASTING 131 MG/DL (74-106); MAGNESIUM LEVEL 1.9 MG/DL (1.8-2.4); PHOSPHORUS LEVEL 2.6 MG/DL (2.4-5.1); POTASSIUM SERUM 4.1 MMOL/L (3.5-5.1); SODIUM LEVEL 141 MMOL/L (136-145)
[2024-11-22 06:12] LABS: HEMATOCRIT 32.3 % (36.0-47.0); HEMOGLOBIN 10.6 g/dl (12.0-15.5); MEAN CORPUSCULAR HEMOGLOBIN 29.7 pg (27.0-33.0); MEAN CORPUSCULAR HGB CONC 32.8 g/dl (32.0-36.5); MEAN CORPUSCULAR VOLUME 90.5 fl (80.0-96.0); PLATELET COUNT, AUTOMATED 177 10^3/uL (150-450); RED BLOOD COUNT 3.57 10^6/uL (4.00-5.40); WHITE BLOOD COUNT 13.3 10^3/uL (4.0-10.0)
[2024-11-22] MEDS: METOPROLOL TART 25 MG TABLET PO ONE (09:23)
[2024-11-22] MEDS: GLYCOPYRROLATE INJ 0.2 MG/ML 2 ML VIAL NEB SCH (10:57)
[2024-11-22] MEDS: NS (Normal Saline) 0.9% 1,000 ML IV SCH (11:15)
[2024-11-22] MEDS: dexmedeTOMidine 200 MCG in IV 1 EA IV SCH (12:31)
[2024-11-22 15:16] LABS: URINE STREP PNEUMONIAE ANTIGEN DETECTED (NOT DETECT)
[2024-11-22] MEDS ORDERED: LevoFLOXacin IV 750 MG in IV 1 EA IV SCH (17:15)
[2024-11-22] MEDS: LevoFLOXacin IV 750 MG in IV 1 EA IV SCH (17:55)
[2024-11-23] VITALS (17 sets, daily range): BP systolic 112–195; BP diastolic 55–98; TEMP 97.6–99; O2SAT 95–99
[2024-11-23 08:09] LABS: HEMATOCRIT 31.3 % (36.0-47.0); MEAN CORPUSCULAR HEMOGLOBIN 29.8 pg (27.0-33.0); MEAN CORPUSCULAR HGB CONC 31.9 g/dl (32.0-36.5); MEAN CORPUSCULAR VOLUME 93.2 fl (80.0-96.0); PLATELET COUNT, AUTOMATED 186 10^3/uL (150-450); RED BLOOD COUNT 3.36 10^6/uL (4.00-5.40); WHITE BLOOD COUNT 12.1 10^3/uL (4.0-10.0)
[2024-11-23 08:28] LABS: BLOOD UREA NITROGEN 24 MG/DL (9-23); CALCIUM LEVEL 7.5 MG/DL (8.3-10.6); CARBON DIOXIDE LEVEL 28 MMOL/L (20-31); CHLORIDE LEVEL 108 MMOL/L (98-107); CREATININE FOR GFR 0.59 MG/DL (0.55-1.30); GLOMERULAR FILTRATION RATE > 60.0 (>39); GLUCOSE, FASTING 116 MG/DL (74-106); POTASSIUM SERUM 4.4 MMOL/L (3.5-5.1); SODIUM LEVEL 142 MMOL/L (136-145)
[2024-11-23] MEDS: methylPREDNISolone 40MG 1ML VIAL IV SCH (08:45)
[2024-11-23] MEDS: ALPRAZolam 0.5 MG TAB PO ONE (09:16)
[2024-11-23] MEDS: ALPRAZolam 0.5 MG TAB PO PRN (16:05)
[2024-11-23] MEDS ORDERED: LevoFLOXacin 750 MG TABLET PO SCH (18:00)
[2024-11-24] VITALS (16 sets, daily range): BP systolic 100–176; BP diastolic 50–87; TEMP 97.2–98.1; O2SAT 94–100
[2024-11-24 00:17] LABS: MYCOPLASMA PNEUMONIAE IGG <= 0.90 (<=0.90)
[2024-11-24] MEDS: METOPROLOL TART 12.5 MG PER 1/2 TAB PO SCH (14:28)
[2024-11-24] MEDS ORDERED: MORPHINE SULFATE ORAL SOLN 10 MG/5 ML UD SL PRN (14:40)
[2024-11-24 15:17] LABS: HEMATOCRIT 33.8 % (36.0-47.0); HEMOGLOBIN 10.9 g/dl (12.0-15.5); MEAN CORPUSCULAR HEMOGLOBIN 29.5 pg (27.0-33.0); MEAN CORPUSCULAR HGB CONC 32.2 g/dl (32.0-36.5); MEAN CORPUSCULAR VOLUME 91.4 fl (80.0-96.0); PLATELET COUNT, AUTOMATED 238 10^3/uL (150-450); WHITE BLOOD COUNT 12.4 10^3/uL (4.0-10.0)
[2024-11-24 15:44] LABS: BLOOD UREA NITROGEN 28 MG/DL (9-23); CALCIUM LEVEL 7.8 MG/DL (8.3-10.6); CARBON DIOXIDE LEVEL 31 MMOL/L (20-31); CHLORIDE LEVEL 101 MMOL/L (98-107); CREATININE FOR GFR 0.62 MG/DL (0.55-1.30); GLOMERULAR FILTRATION RATE > 60.0 (>39); GLUCOSE, FASTING 282 MG/DL (74-106); POTASSIUM SERUM 4.2 MMOL/L (3.5-5.1); SODIUM LEVEL 139 MMOL/L (136-145)
[2024-11-25] VITALS (15 sets, daily range): BP systolic 99–136; BP diastolic 54–65; TEMP 97.2–97.8; O2SAT 86–99
[2024-11-25 04:40] LABS: HEMATOCRIT 32.5 % (36.0-47.0); HEMOGLOBIN 10.4 g/dl (12.0-15.5); MEAN CORPUSCULAR HEMOGLOBIN 29.4 pg (27.0-33.0); MEAN CORPUSCULAR VOLUME 91.8 fl (80.0-96.0); PLATELET COUNT, AUTOMATED 218 10^3/uL (150-450); RED BLOOD COUNT 3.54 10^6/uL (4.00-5.40); WHITE BLOOD COUNT 10.6 10^3/uL (4.0-10.0)
[2024-11-25 05:01] LABS: BLOOD UREA NITROGEN 23 MG/DL (9-23); CALCIUM LEVEL 7.8 MG/DL (8.3-10.6); CARBON DIOXIDE LEVEL 37 MMOL/L (20-31); CHLORIDE LEVEL 104 MMOL/L (98-107); CREATININE FOR GFR 0.62 MG/DL (0.55-1.30); GLOMERULAR FILTRATION RATE > 60.0 (>39); GLUCOSE, FASTING 75 MG/DL (74-106); POTASSIUM SERUM 3.5 MMOL/L (3.5-5.1); SODIUM LEVEL 144 MMOL/L (136-145)
[2024-11-25 05:17] LABS: ABG BASE EXCESS 12.1 (-2.0-2.0); ABG HCO3 37.1 MMOL/L (22.0-26.0); ABG O2 SATURATION 97.8 % (95.0-99.0); ABG PARTIAL PRESSURE CO2 50.4 mmHg (35.0-45.0); ABG PARTIAL PRESSURE O2 110.8 mmHg (75.0-100.0); ABG STANDARD HCO3 35.8 MMOL/L. (22.0-26.0); ABG TOTAL CO2 38.7 MMOL/L (23.0-31.0); ABG pH (ARTERIAL) 7.485 UNITS (7.350-7.450)
[2024-11-26] VITALS (27 sets, daily range): BP systolic 105–134; BP diastolic 52–62; TEMP 97.5–99.1; O2SAT 89–99
[2024-11-26] MEDS: ACETAMINOPHEN *IV* 500 MG in IV 1 EA IV ONE (03:46)
[2024-11-26 06:01] LABS: HEMATOCRIT 33.1 % (36.0-47.0); HEMOGLOBIN 10.7 g/dl (12.0-15.5); MEAN CORPUSCULAR HEMOGLOBIN 29.5 pg (27.0-33.0); MEAN CORPUSCULAR HGB CONC 32.3 g/dl (32.0-36.5); MEAN CORPUSCULAR VOLUME 91.2 fl (80.0-96.0); PLATELET COUNT, AUTOMATED 243 10^3/uL (150-450); RED BLOOD COUNT 3.63 10^6/uL (4.00-5.40); WHITE BLOOD COUNT 12.6 10^3/uL (4.0-10.0)
[2024-11-26 06:22] LABS: BLOOD UREA NITROGEN 23 MG/DL (9-23); CALCIUM LEVEL 7.9 MG/DL (8.3-10.6); CARBON DIOXIDE LEVEL 34 MMOL/L (20-31); CHLORIDE LEVEL 100 MMOL/L (98-107); CREATININE FOR GFR 0.64 MG/DL (0.55-1.30); GLOMERULAR FILTRATION RATE > 60.0 (>39); GLUCOSE, FASTING 87 MG/DL (74-106); POTASSIUM SERUM 3.4 MMOL/L (3.5-5.1); SODIUM LEVEL 141 MMOL/L (136-145)
[2024-11-26] MEDS ORDERED: ISOVUE-370 76% 100ML VIAL As Ordered ONE (08:13)
[2024-11-26 08:53] LABS: MAGNESIUM LEVEL 1.8 MG/DL (1.8-2.4)
[2024-11-26] MEDS: POTASSIUM CHLORIDE 10MEQ SR TABLET PO ONE (09:48)
[2024-11-27] VITALS (32 sets, daily range): BP systolic 104–118; BP diastolic 54–58; TEMP 97.2–98.1; O2SAT 85–100
[2024-11-27 06:46] LABS: HEMATOCRIT 34.4 % (36.0-47.0); MEAN CORPUSCULAR HEMOGLOBIN 29.3 pg (27.0-33.0); MEAN CORPUSCULAR VOLUME 91.7 fl (80.0-96.0); PLATELET COUNT, AUTOMATED 235 10^3/uL (150-450); RED BLOOD COUNT 3.75 10^6/uL (4.00-5.40); WHITE BLOOD COUNT 11.3 10^3/uL (4.0-10.0)
[2024-11-27 07:10] LABS: BLOOD UREA NITROGEN 19 MG/DL (9-23); CALCIUM LEVEL 7.7 MG/DL (8.3-10.6); CARBON DIOXIDE LEVEL 33 MMOL/L (20-31); CHLORIDE LEVEL 101 MMOL/L (98-107); CREATININE FOR GFR 0.63 MG/DL (0.55-1.30); GLOMERULAR FILTRATION RATE > 60.0 (>39); GLUCOSE, FASTING 145 MG/DL (74-106); POTASSIUM SERUM 3.7 MMOL/L (3.5-5.1); SODIUM LEVEL 141 MMOL/L (136-145)
[2024-11-27 07:22] LABS: PROCALCITONIN 0.11 ng/ml
[2024-11-27 08:05] LABS: ATYPICAL LYMPH 7 % (0-5); EOSINOPHILS 2 % (0-3); LYMPHOCYTES 13 % (16-44); MONOCYTES 4 % (0-5); MYELOCYTES 1 % (0-0); NEUTROPHILS 72 % (28-66)
[2024-11-27 08:15] LABS: GIANT PLATELETS 1+; PLATELET CLUMPS SMALL AMT; PLATELET ESTIMATE NORMAL (NORMAL)
[2024-11-27] MEDS: predniSONE 5 MG TAB PO SCH (09:51)
[2024-11-27] MEDS: PANTOPRAZOLE 40MG TAB (PROTONIX) PO SCH (09:51)
[2024-11-28] VITALS (16 sets, daily range): BP systolic 101–114; BP diastolic 51–57; TEMP 98.1–98.8; O2SAT 91–100
[2024-11-28 07:56] LABS: BASO % 0.2 % (0.0-1.0); HEMOGLOBIN 11.1 g/dl (12.0-15.5); LYMPH # 2.2 10^3/uL (1.5-5.0); LYMPH % 20.9 % (24.0-44.0); MEAN CORPUSCULAR HEMOGLOBIN 29.8 pg (27.0-33.0); MEAN CORPUSCULAR HGB CONC 32.6 g/dl (32.0-36.5); MEAN CORPUSCULAR VOLUME 91.4 fl (80.0-96.0); NEUTROPHILS # 6.7 10^3/uL (1.5-8.5); NEUTROPHILS % 64.5 % (36.0-66.0); PLATELET COUNT, AUTOMATED 237 10^3/uL (150-450); RED BLOOD COUNT 3.72 10^6/uL (4.00-5.40); WHITE BLOOD COUNT 10.4 10^3/uL (4.0-10.0)
[2024-11-28] MEDS ORDERED: METO1TAB87 PO ×2 (12:09→12:18)
[2024-11-28] MEDS ORDERED: IPRA0.00 INH (12:21)
[2024-11-28] MEDS ORDERED: PRED20TA PO (12:21)
== END 2024-11-28 15:05 | disposition home health service (06) | DRG 208 ==
LOC: M ED 05:48 → M ED INP 11:44 → M ICU 14:02 → M PCU 11-25 18:02
PROVIDERS: ADMIT Student in an Organized Health Care Education/Training Program; ATTEND Student in an Organized Health Care Education/Training Program
PROC: 5A1945Z Respiratory Ventilation, 24-96 Consecutive Hours (ICD-10-PCS; principal; 2024-11-19)
PROC: 0B938ZZ Drainage of Right Main Bronchus, Via Natural or Artificial Opening Endoscopic (ICD-10-PCS; 2024-11-19)
PROC: 0B9F8ZZ Drainage of Right Lower Lung Lobe, Via Natural or Artificial Opening Endoscopic (ICD-10-PCS; 2024-11-19)
PROC: 0BH17EZ Insertion of Endotracheal Airway into Trachea, Via Natural or Artificial Opening (ICD-10-PCS; 2024-11-19)
PROC: 0BH17EZ Insertion of Endotracheal Airway into Trachea, Via Natural or Artificial Opening (ICD-10-PCS; 2024-11-21)
DX: J12.3 Human metapneumovirus pneumonia (principal); J96.21 Acute and chronic respiratory failure with hypoxia; E43 Unspecified severe protein-calorie malnutrition; G93.41 Metabolic encephalopathy; C64.9 Malignant neoplasm of unspecified kidney, except renal pelvis; J44.1 Chronic obstructive pulmonary disease with (acute) exacerbation; I47.20 Ventricular tachycardia, unspecified; I47.10 Supraventricular tachycardia, unspecified; E87.29 Other acidosis; E87.3 Alkalosis; J15.9 Unspecified bacterial pneumonia; K21.9 Gastro-esophageal reflux disease without esophagitis; D64.9 Anemia, unspecified; E78.5 Hyperlipidemia, unspecified; G89.29 Other chronic pain; M54.2 Cervicalgia; F17.200 Nicotine dependence, unspecified, uncomplicated; Z66 Do not resuscitate; Z99.81 Dependence on supplemental oxygen; N39.3 Stress incontinence (female) (male); M81.0 Age-related osteoporosis without current pathological fracture; F41.0 Panic disorder [episodic paroxysmal anxiety]; F32.A Depression, unspecified; Z79.52 Long term (current) use of systemic steroids; Z79.899 Other long term (current) drug therapy; Z88.0 Allergy status to penicillin; Z88.1 Allergy status to other antibiotic agents; Z88.5 Allergy status to narcotic agent; R33.9 Retention of urine, unspecified

== ENCOUNTER → 2025-01-03 | Outpatient (REF) | payer MEDICARE ==
[~2025-01-03] MED LIST changes: +BELB75MI SL; +LEVA45AE INH; +METO1TAB87 PO; +PRED5TA PO
[2025-01-03 11:03] LABS: APPEARANCE, URINE HAZY (CLEAR); BACTERIA, URINE AUTO 1+ (NEGATIVE); BILIRUBIN, URINE AUTO NEGATIVE (NEGATIVE); BLOOD, URINE BLOOD 3+ (NEGATIVE); COLOR, URINE YELLOW (YELLOW); GLUCOSE, URINE (UA) AUTO NEGATIVE (NEGATIVE); KETONE, URINE AUTO NEGATIVE (NEGATIVE); LEUKOCYTE ESTERASE, URINE AUTO 3+ (NEGATIVE); NITRITE, URINE AUTO NEGATIVE (NEGATIVE); PROTEIN, URINE AUTO 1+ mg/dL (NEGATIVE); RBC, URINE AUTO 31 /HPF (0-3); SPECIFIC GRAVITY URINE AUTO 1.005 (1.002-1.035); SQUAMOUS EPITHELIAL CELL UR AU 0 /HPF (0-6); UROBILINOGEN, URINE AUTO 0.2 mg/dL (0.0-2.0); WBC, URINE AUTO TNTC /HPF (0-3)
[2025-01-03 11:08] LABS: HEMATOCRIT 35.6 % (36.0-47.0); HEMOGLOBIN 10.9 g/dl (12.0-15.5); MEAN CORPUSCULAR HGB CONC 30.6 g/dl (32.0-36.5); MEAN CORPUSCULAR VOLUME 94.7 fl (80.0-96.0); PLATELET COUNT, AUTOMATED 243 10^3/uL (150-450); RED BLOOD COUNT 3.76 10^6/uL (4.00-5.40); WHITE BLOOD COUNT 10.9 10^3/uL (4.0-10.0)
[2025-01-03 11:49] LABS: ALBUMIN 3.4 G/DL (3.2-5.2); BILIRUBIN,TOTAL 0.3 MG/DL (0.3-1.2); CREATININE FOR GFR 0.73 MG/DL (0.55-1.30); GLOMERULAR FILTRATION RATE 85.7 (>39); POTASSIUM SERUM 4.2 MMOL/L (3.5-5.1); TOTAL PROTEIN 6.3 G/DL (5.7-8.2)
== END ==
LOC: M PLALAB 10:09
PROVIDERS: ATTEND Urology
DX: Z01.818 Encounter for other preprocedural examination (principal); C64.2 Malignant neoplasm of left kidney, except renal pelvis; N39.0 Urinary tract infection, site not specified

== ENCOUNTER → 2025-01-08 | Outpatient (CLI) | payer MEDICARE ==
[2025-01-08 15:34] LABS: APPEARANCE, URINE CLOUDY (CLEAR); BACTERIA, URINE AUTO 2+ (NEGATIVE); BILIRUBIN, URINE AUTO NEGATIVE (NEGATIVE); BLOOD, URINE BLOOD 2+ (NEGATIVE); COLOR, URINE YELLOW (YELLOW); GLUCOSE, URINE (UA) AUTO NEGATIVE (NEGATIVE); KETONE, URINE AUTO TRACE mg/dL (NEGATIVE); LEUKOCYTE ESTERASE, URINE AUTO 3+ (NEGATIVE); MUCUS, URINE SMALL (NEGATIVE); NITRITE, URINE AUTO NEGATIVE (NEGATIVE); PROTEIN, URINE AUTO 2+ mg/dL (NEGATIVE); RBC, URINE AUTO 44 /HPF (0-3); SPECIFIC GRAVITY URINE AUTO 1.012 (1.002-1.035); SQUAMOUS EPITHELIAL CELL UR AU 1 /HPF (0-6); UROBILINOGEN, URINE AUTO 0.2 mg/dL (0.0-2.0); WBC, URINE AUTO TNTC /HPF (0-3)
[2025-01-08 15:37] LABS: HEMATOCRIT 36.8 % (36.0-47.0); HEMOGLOBIN 11.3 g/dl (12.0-15.5); MEAN CORPUSCULAR HEMOGLOBIN 29.1 pg (27.0-33.0); MEAN CORPUSCULAR HGB CONC 30.7 g/dl (32.0-36.5); MEAN CORPUSCULAR VOLUME 94.8 fl (80.0-96.0); PLATELET COUNT, AUTOMATED 281 10^3/uL (150-450); RED BLOOD COUNT 3.88 10^6/uL (4.00-5.40)
[2025-01-08 15:38] LABS: IRON (FE) 28 UG/DL (50-170); PERCENT SATURATION 10.5 % (13.2-45.0); TOTAL IRON BINDING CAPACITY 267 UG/DL (250-425)
[2025-01-08 15:54] LABS: ALBUMIN 3.8 G/DL (3.2-5.2); ALKALINE PHOSPHATASE 66 U/L (35-104); ALT/SGPT 16 U/L (7.0-40); AST/SGOT 19 U/L (<34); BILIRUBIN,TOTAL 0.3 MG/DL (0.3-1.2); BLOOD UREA NITROGEN 13 MG/DL (9-23); CALCIUM LEVEL 9.2 MG/DL (8.3-10.6); CARBON DIOXIDE LEVEL 30 MMOL/L (20-31); CHLORIDE LEVEL 104 MMOL/L (98-107); FERRITIN 132.1 NG/ML (7.3-270.7); GLOMERULAR FILTRATION RATE > 90.0 (>39); GLUCOSE, FASTING 65 MG/DL (74-106); MAGNESIUM LEVEL 1.8 MG/DL (1.8-2.4); POTASSIUM SERUM 4.1 MMOL/L (3.5-5.1); SODIUM LEVEL 142 MMOL/L (136-145); TOTAL PROTEIN 6.7 G/DL (5.7-8.2)
[2025-01-08 16:13] LABS: ATYPICAL LYMPH 3 % (0-5); EOSINOPHILS 10 % (0-3); LYMPHOCYTES 22 % (16-44); MONOCYTES 5 % (0-5); NEUTROPHILS 60 % (28-66)
[2025-01-08 16:18] LABS: PLATELET ESTIMATE NORMAL (NORMAL)
== END ==
LOC: M PLALAB 12:47
PROVIDERS: ATTEND Family Medicine
DX: D50.9 Iron deficiency anemia, unspecified (principal); E55.9 Vitamin D deficiency, unspecified; N28.89 Other specified disorders of kidney and ureter

== ENCOUNTER → 2025-03-07 | Outpatient (CLI) | payer MEDICARE ==
[~2025-03-07] MED LIST changes: +CEPH500C PO; +MM S100C PO; +OXYC1TAB23 PO; +TRIA1CR80 TOP
[2025-03-07 10:06] LABS: INR 1.0
[2025-03-07 10:36] LABS: BASO # 0.1 10^3/uL (0.0-0.2); BASO % 0.7 % (0.0-1.0); EOS # 0.1 10^3/uL (0.0-0.5); EOS % 0.7 % (0.0-3.0); LYMPH # 1.5 10^3/uL (1.5-5.0); LYMPH % 18.4 % (24.0-44.0); MONO # 0.7 10^3/uL (0.0-0.8); MONO % 9.0 % (2.0-8.0); NEUTROPHILS # 5.9 10^3/uL (1.5-8.5); NEUTROPHILS % 71.0 % (36.0-66.0); PLATELET COUNT, AUTOMATED 262 10^3/uL (150-450)
[2025-03-07 10:58] LABS: IRON (FE) 59.0 UG/DL (50-170); PERCENT SATURATION 24.9 % (13.2-45.0)
[2025-03-07 11:00] LABS: TOTAL 25(OH) VITAMIN D 127.2 NG/ML (20.0-100.0)
[2025-03-07 11:02] LABS: ALT/SGPT 16.0 U/L (7.0-40); AST/SGOT 19.0 U/L (<34); CALCIUM LEVEL 8.5 MG/DL (8.3-10.6); CARBON DIOXIDE LEVEL 27.0 MMOL/L (20-31); CHLORIDE LEVEL 105.0 MMOL/L (98-107); CHOLESTEROL LEVEL 186.0 MG/DL (<200); CHOLESTEROL RISK RATIO 2.97 (<5); CREATININE FOR GFR 1.03 MG/DL (0.55-1.30); GLOMERULAR FILTRATION RATE 56.7 (>39); LDL CHOLESTEROL 107.1 MG/DL (<100); MAGNESIUM LEVEL 1.9 MG/DL (1.8-2.4); NON-HDL-C 123.5 MG/DL; POTASSIUM SERUM 4.1 MMOL/L (3.5-5.1); PTH INTACT 54.6 PG/ML (18.5-88.0); SODIUM LEVEL 141.0 MMOL/L (136-145); TRIGLYCERIDES LEVEL 82.0 MG/DL (<150); VITAMIN B12 LEVEL 648.0 PG/ML (211-911)
[2025-03-07 15:52] LABS: APPEARANCE, URINE CLEAR (CLEAR); BACTERIA, URINE AUTO 1+ (NEGATIVE); BILIRUBIN, URINE AUTO NEGATIVE (NEGATIVE); BLOOD, URINE BLOOD NEGATIVE (NEGATIVE); GLUCOSE, URINE (UA) AUTO NEGATIVE (NEGATIVE); KETONE, URINE AUTO NEGATIVE (NEGATIVE); LEUKOCYTE ESTERASE, URINE AUTO 1+ (NEGATIVE); NITRITE, URINE AUTO NEGATIVE (NEGATIVE); PROTEIN, URINE AUTO NEGATIVE (NEGATIVE); RBC, URINE AUTO 2 /HPF (0-3); SPECIFIC GRAVITY URINE AUTO 1.013 (1.002-1.035); SQUAMOUS EPITHELIAL CELL UR AU 3 /HPF (0-6); UROBILINOGEN, URINE AUTO 0.2 mg/dL (0.0-2.0); WBC, URINE AUTO 4 /HPF (0-3)
== END ==
LOC: M PLALAB 07:31
PROVIDERS: ATTEND Family Medicine
DX: D50.9 Iron deficiency anemia, unspecified (principal); E55.9 Vitamin D deficiency, unspecified; E78.2 Mixed hyperlipidemia; E53.8 Deficiency of other specified B group vitamins; I50.32 Chronic diastolic (congestive) heart failure; N28.89 Other specified disorders of kidney and ureter

== ENCOUNTER → 2025-03-07 | Outpatient (CLI) | payer MEDICARE | LOC: M WHC 06:55 | PROVIDERS: ATTEND Family Medicine | DX: Z12.31 Encounter for screening mammogram for malignant neoplasm of breast (principal); D50.9 Iron deficiency anemia, unspecified; E55.9 Vitamin D deficiency, unspecified; E78.2 Mixed hyperlipidemia; E53.8 Deficiency of other specified B group vitamins; I50.32 Chronic diastolic (congestive) heart failure; N28.89 Other specified disorders of kidney and ureter ==

== ENCOUNTER 2025-04-19 07:21 | Outpatient (CLI) | payer MEDICARE ==
[~2025-04-19] VITALS: Ht 149.9 cm; Wt 45.0 kg
[~2025-04-19 07:21] MED LIST changes: +ALBUTEROL SULFATE 2.5 MG/0.5 ML INH CONCENTRATE NEB SOLN INH PRN; +EPINEPHrine INJ 1 MG/ML 1ML AMP IM PRN; +diphenhydrAMINE 50 MG/ML VIAL IV PRN
[2025-04-19 07:46] VITALS: BP 126/59; O2SAT 98
[2025-04-19] MEDS: IRON SUCROSE 500 MG in NS 250 ML OVER 4 HRS IV ONE (08:14)
[2025-04-19 09:40] VITALS: BP 112/60; O2SAT 99
[2025-04-19 12:23] VITALS: BP 116/52; O2SAT 98
== END 2025-04-19 12:25 ==
LOC: M INFU 07:21
PROVIDERS: ATTEND Family Medicine
DX: D50.9 Iron deficiency anemia, unspecified (principal); Z88.0 Allergy status to penicillin; Z88.2 Allergy status to sulfonamides; Z88.1 Allergy status to other antibiotic agents; Z88.5 Allergy status to narcotic agent; Z88.8 Allergy status to other drugs, medicaments and biological substances
CPT/HCPCS: 96365; 96366; J1756

== ENCOUNTER 2025-04-26 07:58 | Outpatient (CLI) | payer MEDICARE ==
[2025-04-26 08:35] VITALS: BP 133/62; O2SAT 100
[2025-04-26] MEDS: IRON SUCROSE 500 MG in NS 250 ML OVER 4 HRS IV ONE (09:28)
[2025-04-26 10:30] VITALS: BP 139/71; O2SAT 98
[2025-04-26 12:30] VITALS: BP 116/52; O2SAT 96
[2025-04-26 13:38] VITALS: BP 132/70; O2SAT 96
== END 2025-04-26 13:38 ==
LOC: M INFU 07:58
PROVIDERS: ATTEND Family Medicine
DX: D50.9 Iron deficiency anemia, unspecified (principal); Z88.0 Allergy status to penicillin; Z88.2 Allergy status to sulfonamides; Z88.1 Allergy status to other antibiotic agents; Z88.5 Allergy status to narcotic agent; Z88.8 Allergy status to other drugs, medicaments and biological substances
CPT/HCPCS: 96365; 96366; J1756

== ENCOUNTER → 2025-05-07 | Outpatient (CLI) | payer MEDICARE ==
[~2025-05-07] MED LIST changes: -ALBUTEROL SULFATE 2.5 MG/0.5 ML INH CONCENTRATE NEB SOLN INH PRN; -DIPH50CA PO; +DIPH50CA31 PO; -EPINEPHrine INJ 1 MG/ML 1ML AMP IM PRN; -diphenhydrAMINE 50 MG/ML VIAL IV PRN
[2025-05-07 15:51] LABS: BASO # 0.1 10^3/uL (0.0-0.2); BASO % 1.0 % (0.0-1.0); EOS # 0.2 10^3/uL (0.0-0.5); EOS % 3.3 % (0.0-3.0); LYMPH # 1.5 10^3/uL (1.5-5.0); LYMPH % 22.8 % (24.0-44.0); MONO # 0.6 10^3/uL (0.0-0.8); MONO % 9.4 % (2.0-8.0); NEUTROPHILS # 4.2 10^3/uL (1.5-8.5); NEUTROPHILS % 63.2 % (36.0-66.0); PLATELET COUNT, AUTOMATED 265 10^3/uL (150-450)
[2025-05-07 15:53] LABS: ALT/SGPT 12.0 U/L (7.0-40); AST/SGOT 16.0 U/L (<34); CALCIUM LEVEL 9.1 MG/DL (8.3-10.6); CARBON DIOXIDE LEVEL 29.0 MMOL/L (20-31); CHLORIDE LEVEL 102.0 MMOL/L (98-107); CHOLESTEROL LEVEL 169.0 MG/DL (<200); CHOLESTEROL RISK RATIO 2.87 (<5); CREATININE FOR GFR 1.04 MG/DL (0.55-1.30); GLOMERULAR FILTRATION RATE 56.1 (>39); IRON (FE) 56.0 UG/DL (50-170); LDL CHOLESTEROL 92.6 MG/DL (<100); MAGNESIUM LEVEL 2.0 MG/DL (1.8-2.4); NON-HDL-C 110.2 MG/DL; PERCENT SATURATION 24.6 % (13.2-45.0); POTASSIUM SERUM 4.5 MMOL/L (3.5-5.1); PTH INTACT 51.9 PG/ML (18.5-88.0); SODIUM LEVEL 134.0 MMOL/L (136-145); TRIGLYCERIDES LEVEL 88.0 MG/DL (<150)
[2025-05-07 15:56] LABS: TOTAL 25(OH) VITAMIN D 79.8 NG/ML (20.0-100.0)
[2025-05-07 15:57] LABS: VITAMIN B12 LEVEL 508.0 PG/ML (211-911)
== END ==
LOC: M PLALAB 09:47
PROVIDERS: ATTEND Family Medicine
DX: D50.9 Iron deficiency anemia, unspecified (principal); E55.9 Vitamin D deficiency, unspecified; I50.32 Chronic diastolic (congestive) heart failure; E78.2 Mixed hyperlipidemia

== ENCOUNTER 2025-05-10 09:16 | Outpatient (CLI) | payer MEDICARE ==
[~2025-05-10] VITALS: Ht 149.9 cm; Wt 44.9 kg
[2025-05-10] MEDS: ZOLEDRONIC ACID 5 MG in IV 1 EA IV ONE (09:51)
[2025-05-10 10:30] VITALS: BP 122/56; O2SAT 100
== END 2025-05-10 10:30 ==
LOC: M INFU 09:16
PROVIDERS: ATTEND Family Medicine
DX: M81.0 Age-related osteoporosis without current pathological fracture (principal); Z88.0 Allergy status to penicillin; Z88.2 Allergy status to sulfonamides; Z88.1 Allergy status to other antibiotic agents; Z88.5 Allergy status to narcotic agent; Z88.8 Allergy status to other drugs, medicaments and biological substances
CPT/HCPCS: 96413; J3489

== ENCOUNTER → 2025-06-07 | Outpatient (CLI) | payer MEDICARE ==
[2025-06-07 10:16] LABS: BASO # 0.1 10^3/uL (0.0-0.2); BASO % 1.1 % (0.0-1.0); EOS # 0.0 10^3/uL (0.0-0.5); EOS % 0.0 % (0.0-3.0); LYMPH # 1.5 10^3/uL (1.5-5.0); LYMPH % 20.8 % (24.0-44.0); MONO # 0.6 10^3/uL (0.0-0.8); MONO % 8.2 % (2.0-8.0); NEUTROPHILS # 4.9 10^3/uL (1.5-8.5); NEUTROPHILS % 69.8 % (36.0-66.0); PLATELET COUNT, AUTOMATED 249 10^3/uL (150-450)
[2025-06-07 10:19] LABS: ALT/SGPT 14.0 U/L (7.0-40); AST/SGOT 17.0 U/L (<34); CALCIUM LEVEL 8.6 MG/DL (8.3-10.6); CARBON DIOXIDE LEVEL 28.0 MMOL/L (20-31); CHLORIDE LEVEL 103.0 MMOL/L (98-107); CREATININE FOR GFR 1.08 MG/DL (0.55-1.30); GLOMERULAR FILTRATION RATE 53.2 (>39); POTASSIUM SERUM 4.5 MMOL/L (3.5-5.1); SODIUM LEVEL 139.0 MMOL/L (136-145)
[2025-06-07 10:20] LABS: VITAMIN B12 LEVEL 526.0 PG/ML (211-911)
[2025-06-07 10:38] LABS: ESTIMATED AVERAGE GLUCOSE 103.0 MG/DL (60-110)
== END ==
LOC: M PLALAB 07:11
PROVIDERS: ATTEND Family Medicine
DX: J44.9 Chronic obstructive pulmonary disease, unspecified (principal); E55.9 Vitamin D deficiency, unspecified; E53.8 Deficiency of other specified B group vitamins; R73.01 Impaired fasting glucose; I50.32 Chronic diastolic (congestive) heart failure

== ENCOUNTER → 2025-06-11 | Outpatient (REF) | payer MEDICARE | LOC: M SFHCPLAZ 10:30 | PROVIDERS: ATTEND Family Medicine | DX: Z53.9 Procedure and treatment not carried out, unspecified reason (principal) ==

== ENCOUNTER → 2025-06-13 | Outpatient (CLI) | payer MEDICARE ==
[2025-06-13 14:34] LABS: IRON (FE) 46.0 UG/DL (50-170); PERCENT SATURATION 19.2 % (13.2-45.0)
[2025-06-15 02:23] LABS: PROTEIN, TOTAL SO 6.2 g/dL (6.1-8.1)
[2025-06-17 09:38] LABS: ERYTHROPOIETIN 7.3 mIU/mL (2.6-18.5)
[2025-06-17 15:18] LABS: SOLUBLE TRANSFERRIN RECEPTOR 0.95 mg/L (0.76-1.76)
[2025-06-18 09:37] LABS: ALBUMIN SO 3.9 g/dL (3.8-4.8); ALPHA 1 GLOBULINS SO 0.2 g/dL (0.2-0.3); ALPHA 2 GLOBULINS SO 0.7 g/dL (0.5-0.9); BETA 2 GLOBULIN SO 0.3 g/dL (0.2-0.5); BETA GLOBULIN SO 0.3 g/dL (0.4-0.6); GAMMA GLOBULINS SO 0.7 g/dL (0.8-1.7)
== END ==
LOC: M PLALAB 09:20
PROVIDERS: ATTEND Family Medicine
DX: D50.9 Iron deficiency anemia, unspecified (principal)

== ENCOUNTER → 2025-06-19 | Outpatient (CLI) | payer MEDICARE | LOC: M WHC 08:53 | PROVIDERS: ATTEND Family Medicine | DX: M81.0 Age-related osteoporosis without current pathological fracture (principal) ==

== ENCOUNTER → 2025-06-28 | Outpatient (REF) | payer MEDICARE | LOC: M SMT 16:54 | PROVIDERS: ATTEND Urology | DX: C68.9 Malignant neoplasm of urinary organ, unspecified (principal) ==

== ENCOUNTER 2025-07-26 07:08 | Outpatient (CLI) | payer MEDICARE ==
[~2025-07-26] VITALS: Ht 149.9 cm; Wt 45.0 kg
[~2025-07-26 07:08] MED LIST changes: +ALBUTEROL SULFATE 2.5 MG/0.5 ML INH CONCENTRATE NEB SOLN INH PRN; +EPINEPHrine INJ 1 MG/ML 1ML AMP IM PRN; +diphenhydrAMINE 50 MG/ML VIAL IV PRN
[2025-07-26] MEDS: FERRIC CARBOXYMALTOSE INJ 750 MG, VIAL MATE ADAPTER 1 EACH in NS 100 ML IV ONE (07:38)
[2025-07-26 08:00] VITALS: BP 123/57; O2SAT 99
[2025-07-26 08:10] VITALS: BP 131/62; O2SAT 100
== END 2025-07-26 08:10 | disposition home or self-care (01) ==
LOC: M INFU 07:08
PROVIDERS: ATTEND Family Medicine
DX: D50.9 Iron deficiency anemia, unspecified (principal); Z88.0 Allergy status to penicillin; Z88.1 Allergy status to other antibiotic agents; Z88.2 Allergy status to sulfonamides; Z88.5 Allergy status to narcotic agent; Z88.8 Allergy status to other drugs, medicaments and biological substances
CPT/HCPCS: 96365; J1439

== ENCOUNTER → 2025-08-09 | Outpatient (CLI) | payer MEDICARE ==
[~2025-08-09] MED LIST changes: -ALBUTEROL SULFATE 2.5 MG/0.5 ML INH CONCENTRATE NEB SOLN INH PRN; -EPINEPHrine INJ 1 MG/ML 1ML AMP IM PRN; -diphenhydrAMINE 50 MG/ML VIAL IV PRN
== END ==
LOC: M RAD 10:27
PROVIDERS: ATTEND Internal Medicine Pulmonary Disease
DX: R91.8 Other nonspecific abnormal finding of lung field (principal); J43.9 Emphysema, unspecified; I70.0 Atherosclerosis of aorta

== ENCOUNTER → 2025-08-20 | Outpatient (CLI) | payer MEDICARE | LOC: M WUC 14:31 | DX: R05.1 Acute cough (principal); R07.1 Chest pain on breathing ==